=== PATIENT | female | born 1975 | race Caucasian/White ===

== ENCOUNTER 2016-12-09 11:39 | Emergency (ER) | payer SELFPAY ==
[~2016-12-09] VITALS: Ht 165.1 cm; Wt 96.5 kg
[2016-12-09 12:11] VITALS: Ht 165.1 cm; Wt 96.5 kg
[2016-12-10] MEDS ORDERED: FER325 PO (08:40)
[2016-12-10] MEDS ORDERED: PROVERA PO (08:40)
== END 2016-12-09 13:30 | disposition left against medical advice (07) ==
LOC: FTE 11:39
DX: Z53.21 Procedure and treatment not carried out due to patient leaving prior to being seen by health care provider (principal)

== ENCOUNTER 2016-12-10 05:27 | Inpatient (IN) | payer OTHER ==
[2016-12-10] VITALS (21 sets, daily range): BP systolic 115–147; BP diastolic 52–70; PULSE 60–84; RESP 15–21; Ht 165.1 cm; Wt 95.0 kg
[~2016-12-10] VITALS: Ht 165.1 cm; Wt 95.0 kg
[2016-12-10] MEDS ORDERED: GLYCOPYRROLATE 0.4 MG INJ ONE (07:00)
[2016-12-10] MEDS ORDERED: NEOSTIGMINE 3 MG/3 ML SYRINGE ONE (07:00)
[2016-12-10 07:16] LABS: ADD SCAN DIFF NO
--- NOTE | 2016-12-10 07:22 | PREOPHP ---
DATE OF ADMISSION: 12/10/2016 HISTORY OF PRESENT ILLNESS: This is a 41-year-old lady, 6, para 1 with 1 ectopic . Her last normal menstrual period was many months ago as she was admitted for GONZALO, possible BSO. T his patient has a history of on and off vaginal bleeding for many months and getting worse up to the time of admission. She was admitted to the [facility] on 12/01/2016 because o f vaginal bleeding as well as the hemoglobin was 6. She received 4 units of packed cells plus 2 uni ts of fresh frozen plasma. She had a D and C done and she was noted to have a submucous myoma about 6 x 6 cm and the patient continued to bleed, so she was admitted for the above procedure. The proc edures were explained to her and she understood everything totally. The risks, benefits and alterna tives were discussed with her as well. PAST PERSONAL HISTORY: No history of diabetes, TB, asthma. ALLERGIES: NO ALLERGIES. SOCIAL HISTORY: Patient does not smoke. She does not drink. MEDICATIONS: She does not take any drugs except her iron. GYNECOLOGIC HISTORY: She had menarche at the age of 14, every 28 days interval, 3 to 4 days duratio n, and moderate in amount. FAMILY HISTORY: Mother has high blood pressure and father has diabetes. She is 6, para 5 w ith 1 and 4 normal deliveries. REVIEW OF SYSTEMS: CARDIOVASCULAR: No chest pains. RESPIRATORY: No cough. GASTROINTESTINAL: No diarrhea, no vomiting. GENITOURINARY: No dysuria. PHYSICAL EXAMINATION: GENERAL: Reveals a conscious coherent lady and in no acute distress. VITAL SIGNS: Her blood pressure 120/80, pulse rate 80 per minute, respirations 16 per minute. BREASTS: Within normal limits. HEART: Within normal limits. LUNGS: Within normal limits. ABDOMEN: Soft. No organomegaly. PELVIC: Revealed the cervix to be open with about 8 cm submucous fibroid uterus at 12 week size, an d adnexa were negative for masses. RECTAL: Confirmed the pelvic findings. EXTREMITIES: No pedal edema. ADMITTING DIAGNOSES: Menometrorrhagia submucous fibroid, chronic pelvic pain and anemia. PLAN: The patient was planned to have the above procedure. Dictated By: NAVEED TOLEDO/DARSHAN Conf#: [id number] [facility]#: [id number]
[2016-12-10 07:30] LABS: BASOPHILS % 0.2 % (0.0-2.0); EOSINOPHILS # 0.1 10^3/ul (0.0-0.5); EOSINOPHILS % 1.5 % (0.0-7.0); HEMATOCRIT 28.5 % (37.0-47.0); HEMOGLOBIN 8.7 g/dl (12.0-16.0); LYMPHOCYTES % 24.2 % (15.0-51.0); MEAN CORPUSCULAR HEMOGLOBIN 30.4 pg (29.0-33.0); MEAN CORPUSCULAR HGB CONC 30.5 g/dl (32.0-37.0); MEAN CORPUSCULAR VOLUME 99.7 fl (82.0-101.0); MEAN PLATELET VOLUME 10.5 fl (7.4-10.4); MONOCYTE # 0.5 10^3/ul (0.3-0.9); MONOCYTES % 6.5 % (0.0-11.0); NEUTROPHIL # 5.6 10^3/ul (1.6-7.5); NEUTROPHILS % 67.4 % (39.0-77.0); PLATELET COUNT 393 10^3/UL (140-415); RED BLOOD COUNT 2.86 10^6/ul (4.20-5.40); RED CELL DISTRIBUTION WIDTH 17.4 % (11.5-14.5); WHITE BLOOD COUNT 8.3 10^3/ul (4.8-10.8)
[2016-12-10 07:39] LABS: ALBUMIN 3.7 g/dl (3.3-4.9)
[2016-12-10 07:41] LABS: BILIRUBIN,INDIRECT 0.1 mg/dl (0-1.1); BILIRUBIN,TOTAL 0.1 mg/dl (0.2-1.3)
[2016-12-10 07:42] LABS: ALBUMIN/GLOBULIN RATIO 1.19; TOTAL PROTEIN 6.8 g/dl (6.1-8.1)
[2016-12-10 07:49] LABS: POTASSIUM 4.4 mmol/L (3.5-5.1)
[2016-12-10 07:50] LABS: CALCIUM 8.9 mg/dl (8.4-10.2); CREATININE 0.66 mg/dl (0.44-1.00)
[2016-12-10 08:08] LABS: INR 0.94; PROTIME 12.6 Sec (12.2-14.2)
[2016-12-10 08:09] LABS: PARTIAL THROMBOPLASTIN TIME 28.1 Sec (25.0-35.0)
[2016-12-10] MEDS ORDERED: FER325 PO (08:40)
[2016-12-10] MEDS ORDERED: PROVERA PO (08:40)
[2016-12-10] MEDS ORDERED: PROPOFOL 20 ML ONE (10:47)
[2016-12-10] MEDS ORDERED: ROCURONIUM 50 MG INJ ONE ×2 (10:47→11:50)
[2016-12-10] MEDS ORDERED: MIDAZOLAM 1 MG/ML 2 ML INJ ONE (10:47)
[2016-12-10] MEDS ORDERED: METOCLOPRAMIDE 10 MG INJ ONE (10:48)
[2016-12-10] MEDS ORDERED: CEFAZOLIN 1 GM INJ ONE (10:59)
[2016-12-10] MEDS ORDERED: KETOROLAC 30 MG INJ ONE (11:00)
[2016-12-10] MEDS ORDERED: ROPIVACAINE 0.2% 20 ML VIAL ONE (11:11)
[2016-12-10] MEDS ORDERED: OXYCODONE/ACETAMINOPHEN (5/325) TAB PO PRN ×2 (11:30)
[2016-12-10] MEDS ORDERED: HYDROmorphONE (0.2 MG/ML) 10ML SYG IV PRN ×2 (11:30)
[2016-12-10] MEDS ORDERED: DIPHENHYDRAMINE 50 MG INJ IV PRN ×2 (11:30)
[2016-12-10] MEDS ORDERED: NALOXONE (0.4 MG/ML) INJ IV PRN (11:30)
[2016-12-10] MEDS ORDERED: HYDROCODONE/APAP (5/325) TAB PO PRN (11:30)
[2016-12-10] MEDS ORDERED: ONDANSETRON 4 MG INJ IV PRN (11:30)
[2016-12-10] MEDS ORDERED: METOCLOPRAMIDE 10 MG INJ IV PRN (11:30)
[2016-12-10] MEDS ORDERED: HYDROmorphONE 1 MG/ML SYG IV PRN ×3 (11:30)
[2016-12-10] MEDS ORDERED: KETOROLAC 30 MG INJ IV PRN (11:30)
[2016-12-10] MEDS ORDERED: FENTAnyl 2MCG/ML-ROPIV 0.2% 100 ML BAG EPI SCH (11:30)
[2016-12-10] MEDS ORDERED: MEPERIDINE 25 MG INJ IV PRN (11:30)
[2016-12-10] MEDS ORDERED: FENTAnyl 50 MCG/ML VIAL ONE (12:46)
[2016-12-10] MEDS: HYDROmorphONE (0.2 MG/ML) 10ML SYG IV PRN ×3 (13:25→13:42)
[2016-12-10] MEDS ORDERED: ONDANSETRON 4 MG TAB PO PRN (14:00)
[2016-12-10] MEDS ORDERED: BISACODYL 10 MG SUPP PR PRN (14:00)
[2016-12-10] MEDS: HYDROmorphONE 1 MG/ML SYG IV PRN ×2 (18:35→20:56)
[2016-12-10] MEDS: FENTAnyl 2MCG/ML-ROPIV 0.2% 100 ML BAG EPI SCH (21:54)
[2016-12-11 00:28] VITALS: BP 123/64; RESP 20
[2016-12-11] MEDS: LACTATED RINGER'S 1,000 ML IV SCH ×2 (00:28→11:30)
[2016-12-11] MEDS: HYDROmorphONE 1 MG/ML SYG IV PRN ×4 (00:30→12:18)
[2016-12-11 05:16] LABS: ADD SCAN DIFF NO
[2016-12-11 05:27] LABS: BASOPHILS % 0.3 % (0.0-2.0); EOSINOPHILS % 0.1 % (0.0-7.0); HEMATOCRIT 25.6 % (37.0-47.0); HEMOGLOBIN 8.2 g/dl (12.0-16.0); LYMPHOCYTES # 1.4 10^3/ul (0.8-2.9); LYMPHOCYTES % 14.2 % (15.0-51.0); MEAN CORPUSCULAR HEMOGLOBIN 30.8 pg (29.0-33.0); MEAN CORPUSCULAR VOLUME 96.2 fl (82.0-101.0); MEAN PLATELET VOLUME 10.9 fl (7.4-10.4); MONOCYTE # 0.9 10^3/ul (0.3-0.9); MONOCYTES % 8.6 % (0.0-11.0); NEUTROPHIL # 7.8 10^3/ul (1.6-7.5); NEUTROPHILS % 76.5 % (39.0-77.0); PLATELET COUNT 318 10^3/UL (140-415); RED BLOOD COUNT 2.66 10^6/ul (4.20-5.40); RED CELL DISTRIBUTION WIDTH 17.3 % (11.5-14.5); WHITE BLOOD COUNT 10.1 10^3/ul (4.8-10.8)
[2016-12-11 05:36] LABS: ALBUMIN 2.8 g/dl (3.3-4.9)
[2016-12-11 05:37] LABS: POTASSIUM 4.2 mmol/L (3.5-5.1)
[2016-12-11 05:39] LABS: ALBUMIN/GLOBULIN RATIO 1.12; BILIRUBIN,INDIRECT 0.3 mg/dl (0-1.1); BILIRUBIN,TOTAL 0.3 mg/dl (0.2-1.3); CALCIUM 8.2 mg/dl (8.4-10.2); CREATININE 0.65 mg/dl (0.44-1.00); TOTAL PROTEIN 5.3 g/dl (6.1-8.1)
--- NOTE | 2016-12-11 06:28 | OPR ---
DATE OF OPERATION: 12/10/2016 PREOPERATIVE DIAGNOSES: 1. Chronic pelvic pain. 2. Iron deficiency anemia. 3. Fibroid uterus. 4. Submucosal fibroid. 5. Rule out adenomyosis. POSTOPERATIVE DIAGNOSES: 1. Chronic pelvic pain. 2. Iron deficiency anemia. 3. Fibroid uterus. 4. Submucosal fibroid. 5. Rule out adenomyosis. 6. Severe pelvic and abdominal adhesions and perineal relaxation. SURGEON: Naveed Man MD FIBER DESIGNER: Dr. Contreras ANESTHESIA: General. OPERATION PERFORMED: Exploratory laparotomy, total abdominal hysterectomy, lysis of severe pelvic a nd abdominal adhesions, and vaginal vault suspension. OPERATIVE TECHNIQUE: Under general anesthesia, the patient was prepped and draped in the usual [facility] ion for abdominal surgery. After checking for the effect of the anesthesia, Pfannenstiel incision, 14 cm skin incision, was performed. The incision was carried from the skin up to the fascia. Upon opening the skin up to the fascia, small blood vessels were noted to be oozing, and these were all c auterized. Fascia was opened transversely followed by splitting the muscles vertically and the keven toneum vertically. Upon opening the abdominal cavity, the uterus was noted to be about 16 weeks siz e and soft. The uterus felt soft. Then, the upper abdominal organs were palpated. They were withi n normal limits. The omentum was noted to be attached all over the anterior parietal peritoneum. A ll these adhesions had to be lysed by sharp and blunt dissection. There were some omental adhesions noted on the lower uterine segment, and these adhesions were lysed by sharp and blunt dissection. Then, the self-retaining retractor was put in place. The bladder blade was put in place. The bowel s were packed away from the operative field with the aid of 6 wet lap sponges. Then, the upper blad e was put in place. Then, two 8 inch Kochers were placed at each paratubal and paraovarian ligament for traction. Then, the left round ligament was grasped with 2 Kochers and cut. A stick tie with 0 Vicryl was used and tagged. The left broad ligament was skeletonized for the development of the b ladder flap. The left utero-ovarian and left uterotubal ligaments were grasped with 2 Lamine clamps and pulled back with a straight Anibal and cut. At first, a free tie with 0 Vicryl was used follow ed by Lamine suture. Bleeders were checked, and there was no bleeding noted. Same thing was done o n the right side. The right round ligament was grasped with 2 Kochers and cut. Stick tie with 0 Vi cryl was used and tagged. Then, the right utero-ovarian and right uterotubal ligaments were grasped with 2 Lamine clamps and pulled back with a straight Anibal and cut. At first, a free tie with 0 V icryl was used followed by Lamine suture. Bleeders were checked, and there was no bleeding noted. Once again, the broad ligament on both sides was skeletonized for the development of the bladder fla p. Then, the left uterine vessels were grasped with 2 Lamine clamps and pulled back with a straight Anibal and cut. A stick tie with 0 Vicryl was used on its clamp. Bleeders were checked, and there was no bleeding noted. Same thing was done on the right side. Bleeders were checked, and there wa s no bleeding noted. Once again, the bladder was from the cervix by sharp and blunt disse ction, then 2 more Kochers were placed at the paracervical tissue on the left and right side, and on each Anibal the tissue was cut and a stick tie with 0 Vicryl was used. Bleeders were checked, and there was no bleeding noted. Then, the body of the uterus was excised. The remaining cervix was gr asped with 2 single tooth tenaculum. Once again, the bladder was from the cervix by sharp and blunt dissection. About 5 more Kochers were placed at the paracervical tissue on the left and right side, and on its clamp the tissue was cut and a stick tie with 0 Vicryl was used. Bleeders we re checked, and there was no bleeding noted. Another piece of cervix was excised. The remaining ce rvix was grasped with 2 single tooth tenaculum. Once again, the bladder was from the cerv ix by sharp and blunt dissection, and then another 5 Kochers were placed at the paracervical tissue on the left and right side, and on each clamp the tissue was cut and a stick tie with 0 Vicryl was u sed. Then, another piece of cervix was excised. Then the cervix again was grasped with 2 single to oth tenaculum. About 3 more Kochers were placed at the paracervical tissue, and on clamp the tissue was cut and a stick tie with 0 Vicryl was used. Bleeders were checked, and there was no bleeding n oted. Then, the cervical vaginal angle was grasped with 2 Lamine clamps, and the cervix was excised . A Lamine suture was used, put on its clamp. Another continuous suture with 0 Vicryl was used to reinforce the first sutures put in the vagina. Then, the right angle of the vagina was sutured with the right paracervical tissue, and in turn, after checking for any bleeders in which there were non e, it was tied with the right round ligament for vaginal vault suspension. The same thing was done on the left side. Irrigation was done to check for any bleeders, and there was some oozing noted at the vaginal cuff on the left side. Two [id number] sutures were put in, and the bleeding was s topped. Once again, bleeders were checked, and there was no bleeding noted from all the stumps. Th en, the raw area was covered with fibril. Then, the fibril was put in after irrigation with about 2 00 mL of normal saline. After correct sponge count, needle count, and instrument count as confirmed by the pre sales technical engineer and engineering clerk, the abdomen was closed in the usual fashion using 0 Vicryl for th e peritoneum, 0 Vicryl for the muscles, for the fascia, 0 Vicryl continuous stitch was used, followe d by few [id number] sutures. For the subcutaneous tissue, it was closed with 3-0 Vicryl, and t he skin was closed with 3-0 Vicryl. Subcuticular suture was used. The patient tolerated the proced ure well. Estimated blood loss about 300 mL. Vital signs were stable during and after the procedur e. The submucosal fibroid that was noted during the D and C in another hospital was about 8 x 8 cm, and this was extracted from the vagina after the hysterectomy as the pedicle of the fibroid was cut when the body of the uterus was excised. Dictated By: NAVEED TOLEDO/DARSHAN Conf#: [id number] DID#: [id number] CC: NAVEED MAN MD;*[facility]*
[2016-12-11] MEDS: FENTAnyl 2MCG/ML-ROPIV 0.2% 100 ML BAG EPI SCH (07:24)
[2016-12-11 08:23] VITALS: BP 130/64; RESP 18
[2016-12-11 09:44] LABS: ADD UMIC YES; URINE BILIRUBIN (Dip) NEGATIVE (NEGATIVE); URINE BLOOD (Dip) 2+ (NEGATIVE); URINE COLOR YELLOW (YELLOW); URINE GLUCOSE (Dip) NEGATIVE (NEGATIVE); URINE KETONES (Dip) NEGATIVE (NEGATIVE); URINE LEUKOCYTE ESTERASE (Dip) NEGATIVE (NEGATIVE); URINE NITRITE (Dip) NEGATIVE (NEGATIVE); URINE TOTAL PROTEIN (Dip) 1+ (NEGATIVE); URINE UROBILINOGEN (Dip) 0.2 E.U./dL (0.1-1.0)
[2016-12-11 10:08] LABS: SQUAMOUS EPITHELIAL CELL,UR FEW
[2016-12-11 10:09] LABS: BACTERIA,URINE MODERATE
[2016-12-11] MEDS: MAGNESIUM HYDROXIDE 30ML CUP PO SCH ×2 (11:30→20:09)
--- NOTE | 2016-12-11 11:45 | PN ---
Date/Time of Note Date/Time of Note DATE: 12/11/16 TIME: 11:44 Assessment/Plan VTE Prophylaxis VTE Prophylaxis Intervention: ambulation, anti-embolic stocking Lines/Catheters IV Catheter Type (from Nrsg): Peripheral IV Urinary Cath still in place: Yes Subjective 24 Hr Interval Summary Free Text/Dictation anesthesia Note: A 41 year female S/P abdminal hysterectomy pod #1 under GA and Epidural. pt is cmfortable, no n/v. headache, itching, . d/c epidural. catheter is out. intact tip. Exam/Review of Systems Vital Signs Vitals Vital Signs Date Time Temp Pulse Resp B/P Pulse Ox O2 Delivery O2 Flow Rate FiO2 12/11/16 08:23 98.2 90 18 130/64 95 12/10/16 19:15 Nasal Cannula 2.0 Intake and Output 12/10/16 12/10/16 12/11/16 15:00 23:00 07:00 Intake Total 2250 ml 700 ml 450 ml Output Total 510 ml 600 ml 150 ml Balance 1740 ml 100 ml 300 ml Results Result Diagram: 12/11/16 0415 12/11/16 0415 Results 24 hrs Laboratory Tests Test 12/11/16 00:25 12/11/16 04:15 Urine Color YELLOW Urine Clarity CLEAR Urine pH 5.5 Urine Specific [place] >=1.030 H Urine Ketones NEGATIVE Urine Nitrite NEGATIVE Urine Bilirubin NEGATIVE Urine Urobilinogen 0.2 E.U./dL Urine Leukocyte Esterase NEGATIVE Urine Microscopic RBC 5-10 Urine Microscopic WBC NONE SEEN Urine Squamous Epithelial Cells FEW Urine Amorphous Urates MANY Urine Bacteria MODERATE Urine Hemoglobin 2+ H Urine Glucose NEGATIVE Urine Total Protein 1+ H White Blood Count 10.1 # Red Blood Count 2.66 L Hemoglobin 8.2 L Hematocrit 25.6 L Mean Corpuscular Volume 96.2 Mean Corpuscular Hemoglobin 30.8 Mean Corpuscular Hemoglobin Concent 32.0 Red Cell Distribution Width 17.3 H Platelet Count 318 Mean Platelet Volume 10.9 H Neutrophils % 76.5 Lymphocytes % 14.2 L Monocytes % 8.6 Eosinophils % 0.1 Basophils % 0.3 Nucleated Red Blood Cells % 0.0 Neutrophils # 7.8 H Lymphocytes # 1.4 Monocytes # 0.9 Eosinophils # 0.0 Basophils # 0.0 Nucleated Red Blood Cells # 0.0 Sodium Level 137 Potassium Level 4.2 Chloride Level 105 Carbon Dioxide Level 27 Anion Gap 9 Blood Urea Nitrogen 13 Creatinine 0.65 Glucose Level 117 Calcium Level 8.2 L Total Bilirubin 0.3 Direct Bilirubin 0.00 Indirect Bilirubin 0.3 Aspartate Amino Transf (AST/SGOT) 39 Alanine Aminotransferase (ALT/SGPT) 26 Alkaline Phosphatase 67 Total Protein 5.3 #L Albumin 2.8 L Globulin 2.50 Albumin/Globulin Ratio 1.12 Medications Medications Current Medications Hydromorphone HCl (Dilaudid) 0.2 mg Q2H PRN IV PAIN LEVEL 1-5; Start 12/10/16 at 11:30 Hydromorphone HCl (Dilaudid) 0.4 mg Q2H PRN IV PAIN LEVEL 6-10; Start 12/10/16 at 11:30 Acetaminophen/ Hydrocodone Bitart ([place] (5/325)) 1 tab Q4H PRN PO PAIN LEVEL 4 -6; Start 12/10/16 at 11:30 Diphenhydramine HCl (Benadryl) 25 mg Q4H PRN IV PRURITUS; Start 12/10/16 at 11: 30 Naloxone HCl (Narcan) 0.2 mg Q2M PRN IV FOR RESP RATE 8 OR LESS; Start at 11:30 Bisacodyl (Dulcolax Supp) 10 mg BID PRN LA CONSTIPATION; Start 12/10/16 at 14: 00 Ondansetron HCl (Zofran Tab) 4 mg Q6H PRN PO NAUSEA AND/OR VOMITING; Start at 14:00 Magnesium Hydroxide (Milk Of Mag) 30 ml BID PO Last administered on 12/11/16t 11:30; Admin Dose 30 ML; Start 12/11/16 at 09:00 Oxycodone/ Acetaminophen (Percocet (5/ 325)) 1 tab Q3 PRN PO PAIN LEVEL 1-5; Start 12/11/16 at 14:00 Oxycodone/ Acetaminophen (Percocet (5/ 325)) 2 tab Q3 PRN PO PAIN LEVEL 6-10; Start 12/11/16 at 14:00 Ketorolac Tromethamine (Toradol) 30 mg Q6H PRN IV PAIN LEVEL 6-10; Start at 18:20; Stop 12/13/16 at 18:19 Hydromorphone HCl 1 mg 1 mg Q2H PRN IV BREAKTHROUGH PAIN Last administered on 08:19; Admin Dose 1 MG; Start 12/10/16 at 18:00 Lactated Ringer's (Lr) 1,000 ml @ 100 mls/hr Q10H IV Last administered on 12/11 11:30; Admin Dose 100 MLS/HR; Start 12/11/16 at 00:30 FRANCHESKA TARIQ MD Dec 11, 2016 11:45
[2016-12-11] MEDS ORDERED: OXYCODONE/ACETAMINOPHEN (5/325) TAB PO PRN ×2 (14:00)
[2016-12-11] MEDS: OXYCODONE/ACETAMINOPHEN (5/325) TAB PO PRN ×2 (15:39→18:25)
[2016-12-11] MEDS: KETOROLAC 30 MG INJ IV PRN (20:09)
[2016-12-11 21:40] VITALS: BP 138/67; RESP 20
[2016-12-12] MEDS: OXYCODONE/ACETAMINOPHEN (5/325) TAB PO PRN ×5 (00:34→16:40)
[2016-12-12] MEDS: LACTATED RINGER'S 1,000 ML IV SCH ×3 (01:18→15:31)
[2016-12-12] MEDS: KETOROLAC 30 MG INJ IV PRN (02:59)
[2016-12-12 04:49] LABS: ADD SCAN DIFF NO
[2016-12-12 05:01] LABS: BASOPHILS % 0.2 % (0.0-2.0); EOSINOPHILS # 0.1 10^3/ul (0.0-0.5); EOSINOPHILS % 0.9 % (0.0-7.0); HEMATOCRIT 27.2 % (37.0-47.0); HEMOGLOBIN 8.7 g/dl (12.0-16.0); LYMPHOCYTES # 1.5 10^3/ul (0.8-2.9); LYMPHOCYTES % 14.3 % (15.0-51.0); MEAN CORPUSCULAR HEMOGLOBIN 30.3 pg (29.0-33.0); MEAN CORPUSCULAR VOLUME 94.8 fl (82.0-101.0); MEAN PLATELET VOLUME 10.7 fl (7.4-10.4); MONOCYTE # 0.6 10^3/ul (0.3-0.9); NEUTROPHILS % 78.3 % (39.0-77.0); PLATELET COUNT 268 10^3/UL (140-415); RED BLOOD COUNT 2.87 10^6/ul (4.20-5.40); RED CELL DISTRIBUTION WIDTH 16.6 % (11.5-14.5); WHITE BLOOD COUNT 10.3 10^3/ul (4.8-10.8)
[2016-12-12 05:23] LABS: POTASSIUM 3.6 mmol/L (3.5-5.1)
[2016-12-12 05:25] LABS: CREATININE 0.54 mg/dl (0.44-1.00)
[2016-12-12 05:26] LABS: CALCIUM 8.1 mg/dl (8.4-10.2)
[2016-12-12 07:50] VITALS: BP 122/55; RESP 18
[2016-12-12] MEDS: MAGNESIUM HYDROXIDE 30ML CUP PO SCH (09:55)
== END 2016-12-12 19:05 | disposition home or self-care (01) | DRG 743 ==
LOC: REC 05:27 → MS1 15:20
PROVIDERS: ADMIT Obstetrics & Gynecology; ATTEND Obstetrics & Gynecology
PROC: 0UTC0ZZ Resection of Cervix, Open Approach (ICD-10-PCS; 2016-12-10)
PROC: 0USG0ZZ Reposition Vagina, Open Approach (ICD-10-PCS; 2016-12-10)
PROC: 0DNS0ZZ (ICD-10-PCS; 2016-12-10)
PROC: 0UT90ZZ Resection of Uterus, Open Approach (ICD-10-PCS; principal; 2016-12-10 10:00)
DX: D25.0 Submucous leiomyoma of uterus (principal); E66.9 Obesity, unspecified; D50.9 Iron deficiency anemia, unspecified; N73.6 Female pelvic peritoneal adhesions (postinfective); Z68.34 Body mass index [BMI] 34.0-34.9, adult; R10.2 Pelvic and perineal pain; G89.29 Other chronic pain
CPT/HCPCS: 36430; 80048; 80053; 81001; 81003; 85025; 85610; 85730; 86850; 86870; 86900; 86901; 86902; 86920; 87086; 88305; J0690; J1170; J1200; J1885; J2175; J2250; J2405; J2710; J2765; J2795; J3010; J7120; P9016

== ENCOUNTER 2016-12-14 16:09 | Inpatient (IN) | payer OTHER ==
[~2016-12-14] VITALS: Ht 167.6 cm; Wt 102.3 kg
[~2016-12-14 16:09] MED LIST: FER325 PO; PROVERA PO
[2016-12-14] MEDS ORDERED: PIPER-TAZO 3.375 GM IV (PMX) 100 ML IVPB STA (16:19)
[2016-12-14] MEDS ORDERED: ACETAMINOPHEN 325 MG TAB PO STA (16:19)
[2016-12-14] MEDS ORDERED: SODIUM CHLORIDE 0.9% 1L BAG IV* STA (16:19)
[2016-12-14] MEDS ORDERED: VANCOMYCIN 1 GM (PMX) 250 ML IVPB STA (16:19)
--- NOTE | 2016-12-14 16:37 | ERA ---
ER Documentation Chief Complaint Date/Time DATE: 12/14/16 TIME: 16:32 Chief Complaint hysterectomy last week; ap & fever starting today HPI This is a 41-year-old female that presents to the emergency department postop day #5 after under going a total abdominal hysterectomy and vaginal vault suspension performed by Dr. Man on December 11, 2016. The patient indicates that roughly 2 hours prior to arrival she developed a sudden onset of diffuse abdominal pain, myalgias and a tactile fever shaking and chills. The patient did indicate that yesterday evening roughly 24 hours prior to arrival she developed tenderness in the right lower quadrant that lasted for roughly 1 hour and then spontaneously resolved. The patient has been taking hydromorphone for analgesic control and the last dose was roughly 5 hours prior to arrival. She states the pain is 10 out of 10 in intensity. She has no shortness of breath at rest or exertion. She denies any hemoptysis hematemesis or melanotic stools and denies any vaginal bleeding. ROS All systems reviewed and are negative except as per history of present illness. Medications Home Meds Reported Medications Hydrocodone/Acetaminophen ([place] 10-325 Tablet) 1 Each Tablet, 1 EACH PO Q3HWA Y for PAIN, TAB 12/14/16 Ferrous Sulfate* (Ferrous Sulfate*) 325 Mg Tabec, 325 MG PO TID, TAB 12/10/16 Discontinued Reported Medications [Provera] No Conflict Check, PO TID 12/10/16 Allergies Allergies: Coded Allergies: No Known Allergy (Unverified , 12/14/16) PMhx/Soc History of Surgery: Yes (C SECTION X 1 ,D&C) Anesthesia Reaction: No Hx Neurological Disorder: No Hx Respiratory Disorders: No Hx Cardiac Disorders: No Hx Psychiatric Problems: No Hx Miscellaneous Medical Probl: Yes (ANEMIA) Hx Alcohol Use: No Hx Substance Use: No Hx Tobacco Use: No Physical Exam Vitals Vital Signs Date Time Temp Pulse Resp B/P Pulse Ox O2 Delivery O2 Flow Rate FiO2 12/14/16 19:13 98.8 105 24 113/53 100 Nasal Cannula 2.0 12/14/16 17:52 103.0 118 30 115/77 100 Nasal Cannula 2.0 12/14/16 16:15 103.8 129 22 112/55 98 Physical Exam Constitutional:Well-developed. Well-nourished. Patient diaphoretic not respiratory distress HEENT:Normocephalic. Atraumatic.Pupils were equal round reactive to light. Moist mucous membranes.No tonsillar exudates. Conjunctival pallor Neck: No nuchal rigidity. No lymphadenopathy. No posterior cervical spine tenderness or step-offs. Respiratory: Not using accessory muscles of respiration.Lungs were clear to auscultation bilaterally. No rhonchi. No rales. No wheezing. Cardiovascular: Regular rate regular rhythm.No murmurs. No rubs were appreciated.S1, S2 normal. Distal pulses are palpable 2+ bilaterally. GI: Abdomen was soft. Diffuse abdominal tenderness. Pfannenstiel 14 cm incision with no pulsatile abdominal masses or bruits. No rebound. Voluntary guarding. Bowel sounds were present and normal. Muscle skeletal: Full range of motion of both the upper and lower extremities bilaterally.Normal muscle tone.No assymetrical calf tenderness or swelling. Skin: Diffuse pallor with no petechia, no purpura. No lesions on the palms or the soles of the feet. No maculopapular rash. NEURO: Patient was alert, awake, orientated x3.No facial droop. Gait observed and normal with no ataxia.Speech had regular rate and rhythm. No focal neurological deficits. Result Diagram: 12/14/16 1655 12/14/16 1655 Results 24 hrs Laboratory Tests Test 12/14/16 16:55 12/14/16 19:00 White Blood Count 4.010^3/ul Red Blood Count 3.2510^6/ul Hemoglobin 9.9g/dl Hematocrit 30.5% Mean Corpuscular Volume 93.8fl Mean Corpuscular Hemoglobin 30.5pg Mean Corpuscular Hemoglobin Concent 32.5g/dl Red Cell Distribution Width 15.5% Platelet Count 18987^3/UL Mean Platelet Volume 10.7fl Neutrophils % 71.0% Band Neutrophils % 12.0% Lymphocytes % 11.0% Monocytes % 6.0% Eosinophils % % Neutrophils # 2.810^3/ul Lymphocytes # 0.410^3/ul Monocytes # 0.210^3/ul Eosinophils # 10^3/ul Sodium Level 132mmol/L Potassium Level 3.6mmol/L Chloride Level 93mmol/L Carbon Dioxide Level 26mmol/L Anion Gap 17 Blood Urea Nitrogen 8mg/dl Creatinine 0.70mg/dl Glucose Level 160mg/dl Lactic Acid Level 2.3mmol/L 2.0mmol/L Calcium Level 8.3mg/dl Total Bilirubin 0.3mg/dl Direct Bilirubin 0.00mg/dl Indirect Bilirubin 0.3mg/dl Aspartate Amino Transf (AST/SGOT) 36IU/L Alanine Aminotransferase (ALT/SGPT) 40IU/L Alkaline Phosphatase 158IU/L Troponin I < 0.012ng/ml Total Protein 6.2g/dl Albumin 2.9g/dl Globulin 3.30g/dl Albumin/Globulin Ratio 0.87 Amylase Level 50U/L Lipase 31U/L Current Medications Medications (Trade) Dose Ordered Sig/Roni Route PRN Reason Start Time Stop Time Status Last Admin Dose Admin Sodium Chloride (NS) 3,070 ml BOLUS OVER 2 HOURS STAT IV* 12/14/16 16:19 12/14/16 16:23 DC 12/14/16 16:59 Acetaminophen 650 mg 650 mg ONCE STAT PO 12/14/16 16:19 12/14/16 16:23 DC 12/14/16 16:58 Vancomycin HCl 250 ml @ 125 mls/hr ONCE STAT IVPB 12/14/16 16:19 12/14/16 18:18 DC 12/14/16 17:30 Piperacillin Sod/ Tazobactam Sod (Zosyn 3.375gm/ 100 ml (Pmx)) 100 ml @ 200 mls/hr ONCE STAT IVPB 12/14/16 16:19 12/14/16 16:48 DC 12/14/16 16:59 Morphine Sulfate (morphine) 4 mg ONCE STAT IV 12/14/16 17:03 12/14/16 17:06 DC 12/14/16 17:40 Ondansetron HCl (Zofran Inj) 4 mg ONCE STAT IV 12/14/16 17:03 12/14/16 17:06 DC 12/14/16 17:40 IV Flush 10 ml 10 ml STK-MED ONCE .ROUTE 12/14/16 17:12 12/14/16 17:13 DC 12/14/16 17:19 Sodium Chloride (NS) 100 ml @ ud STK-MED ONCE .ROUTE 12/14/16 17:12 12/14/16 17:13 DC 12/14/16 17:19 Iohexol (Omnipaque 300mg/ ml) 30 ml STK-MED ONCE .ROUTE 12/14/16 17:12 12/14/16 17:13 DC 12/14/16 17:20 Hydromorphone HCl (Dilaudid) 1 mg ONCE STAT IV 12/14/16 18:13 12/14/16 18:16 DC 12/14/16 19:00 Ondansetron HCl (Zofran Inj) 4 mg ONCE STAT IV 12/14/16 18:13 12/14/16 18:16 DC 12/14/16 19:00 Acetaminophen (Tylenol Tab) 1,000 mg ONCE STAT PO 12/14/16 18:57 12/14/16 18:58 DC 12/14/16 19:56 Ondansetron HCl (Zofran Inj) 4 mg ER BRIDGE PRN IV NAUSEA AND/OR VOMITING 12/14/16 19:30 12/15/16 19:29 Acetaminophen (Tylenol Tab) 650 mg ER BRIDGE PRN PO MILD PAIN/FEVER 12/14/16 19:30 12/15/16 19:29 Hydromorphone HCl (Dilaudid) 1 mg ONCE STAT IV 12/14/16 19:41 12/14/16 19:42 DC Ondansetron HCl (Zofran Inj) 4 mg ONCE STAT IV 12/14/16 19:41 12/14/16 19:42 DC Procedures/MDM This patient presented to the emergency department with postoperative abdominal pain and was seen and evaluated by myself. My differential diagnosis included but was not limited to abdominal aortic aneurysm, appendicitis, pancreatitis, perforated peptic ulcer, perforated viscus, Boerhaaves syndrome or visceral pain such as diverticulitis, DKA, esophagitis, hepatitis or bowel obstruction. The patient was placed on a monitoring manager, continuous pulse oximetry, and IV access was established by nursing staff. The patient was septic and had 2 large -bore is placed by nursing staff and I immediately ordered 2 units of packed red blood cells due to the patient's physical exam findings of tachycardia conjunctival pallor with concern for severe anemia. The patient was given intravenous morphine and Zofran for analgesic control. Blood cultures and urine cultures were obtained. 12 Lead EKG tracing ordered and reviewed by myself showed: Sinus tachycardia of 120 bpm and no arrhythmia. NE interval normal. QRS duration normal. No ST segment elevation No ST segment depression. No changes consistent with acute ischemia. Given the severity of the patient's symptoms I immediately had the patient taken to the CT scan before labs had returned as I was concerned for a surgical abdomen. I have placed a call to the patient's BULLET LUBRICATING MACHINE OPERATOR Dr. Paz. The patient was immediately started on broad-spectrum antibiotics which included vancomycin and Zosyn and morphine for analgesic control. I spoke with Dr. Otero who I consulted to inform him that his patient was in the emergency department at 1713. I did indicate I would phone him back once we have the results of the CT scan. CT scan with IV contrast or and reviewed by myself indicated that the patient had large pelvic abscess measuring 10.5 cm x 6.2 x 6 cm and a small volume of ascites and trace pneumoperitoneum that likely could be a result of a postsurgical abscess. However the appendix could not be visualized at this time I could not rule out a ruptured appendicitis given her physical exam findings. I placed a call to inform the surgeon financial institution vice president , Dr. Mane, at this time. He requested a CT scan to be obtained with oral and rectal contrast in order to properly visualize the appendix. The patient was still in a significant amount of pain with voluntary guarding and therefore the patient received IV Dilaudid. As stated above I was concerned with a postoperative abscess given that there were 2 fluid collections seen with on the CT scan and likely would require drainage and as a result I placed the patient on broad-spectrum antibiotics. Patient's infectious symptoms have not stabilized and the patient is at risk of rapid decompensation. The patient will be admitted for careful hydration, antibiotic therapy, and infectious source control. Severe Sepsis Assessment: Infectious Source: Postoperative abscess End organ damage indicated by: Lactate > 2.0 mmol/L Severe Sepsis Managment: Blood Cultures X 2 before broad spectrum antibiotics initiated within 3 hours of recognition. 30 ml/kg NS bolus Completed Initial Lactate: 2.3 Repeat Lactate pending I considered further perfusion assessment with CVP measurement, SCVO2, bedside ultrasound volume assessment, passive leg raise, trial of further fluid bolus. And preceded with IV fluids The patient's BULLET LUBRICATING MACHINE OPERATOR, Dr. Man, came to the bedside to evaluate the patient. She did state that she will admit the patient under her care in serious condition with an anticipated stay of greater than [address] Man indicated she had placed a postoperative hemostatic dressing into the abdominal cavity which she feels could have been mistaken on the CT scan as an abscess. However still obtained a CT scan with oral and rectal contrast for further evaluation into the possibility of a ruptured appendicitis. The patient at this time did not require blood transfusion as her hemoglobin was 9.9. It is currently 2046 and the patient has just finished drinking her oral contrast. Therefore the patient will shortly be taken to have her CT scan with oral and rectal contrast be performed. This will be followed up by the oncoming ER physician And the results will be informed to . Critical Care: Time: 60 minutes Treatments/Evaluations: Close monitoring and treatment of unstable vital signs, cardiorespiratory, and neurologic status, while maintaining tight balance of fluid, respiratory, and cardiac interventions. Time does not include performing any of the above billable procedures. Departure Diagnosis: Primary Impression: Postoperative intra-abdominal abscess Qualified Code: T81.4XXA - Postoperative intra-abdominal abscess, initial encounter Additional Impression: Sepsis Qualified Code: A41.9 - Sepsis, due to unspecified organism Condition: Serious ABIEL BLANCAS Dec 14, 2016 16:37
[2016-12-14] MEDS ORDERED: ONDANSETRON 4 MG INJ IV STA ×3 (17:03→19:41)
[2016-12-14] MEDS ORDERED: morphine 4 MG/ML VIAL IV STA (17:03)
[2016-12-14 17:05] LABS: ADD SCAN DIFF NO
[2016-12-14 17:06] LABS: ABNORMAL IP MESSAGE 1; HEMATOCRIT 30.5 % (37.0-47.0); HEMOGLOBIN 9.9 g/dl (12.0-16.0); MEAN CORPUSCULAR HEMOGLOBIN 30.5 pg (29.0-33.0); MEAN CORPUSCULAR HGB CONC 32.5 g/dl (32.0-37.0); MEAN CORPUSCULAR VOLUME 93.8 fl (82.0-101.0); MEAN PLATELET VOLUME 10.7 fl (7.4-10.4); PLATELET COUNT 407 10^3/UL (140-415); RED BLOOD COUNT 3.25 10^6/ul (4.20-5.40); RED CELL DISTRIBUTION WIDTH 15.5 % (11.5-14.5)
[2016-12-14] MEDS ORDERED: HYDR-902 PO (17:09)
[2016-12-14] MEDS ORDERED: IOHEXOL 300MG/ML 30 ML BTL ONE (17:12)
[2016-12-14] MEDS ORDERED: SOD CHLORIDE 0.9% 100 ML ONE (17:12)
[2016-12-14 17:18] LABS: ALBUMIN 2.9 g/dl (3.3-4.9)
[2016-12-14 17:19] LABS: CHLORIDE 93 mmol/L (97-110); POTASSIUM 3.6 mmol/L (3.5-5.1); SODIUM 132 mmol/L (135-144)
[2016-12-14 17:21] LABS: ALBUMIN/GLOBULIN RATIO 0.87; AMYLASE 50 U/L (11-123); ANION GAP 17 (8-16); ASPARTATE AMINO TRANSFERASE 36 IU/L (15-46); BILIRUBIN,INDIRECT 0.3 mg/dl (0-1.1); BILIRUBIN,TOTAL 0.3 mg/dl (0.2-1.3); BLOOD UREA NITROGEN 8 mg/dl (7-20); CARBON DIOXIDE 26 mmol/L (21-31); TOTAL PROTEIN 6.2 g/dl (6.1-8.1)
[2016-12-14 17:22] LABS: ALANINE AMINOTRANSFERASE 40 IU/L (13-69); ALKALINE PHOSPHATASE 158 IU/L (42-121); CALCIUM 8.3 mg/dl (8.4-10.2); GLUCOSE 160 mg/dl (70-220)
--- NOTE | 2016-12-14 17:45 | RADRPT ---
PROCEDURE: CT abdomen and pelvis with intravenous contrast. CLINICAL INDICATION: Abdominal Pain TECHNIQUE: Following intravenous contrast, spiral CT of the abdomen pelvis was performed and is re constructed at 2.5 mm contiguous axial intervals from the dome of the diaphragm to the inferior pubi c rami. Computer reformatted coronal and sagittal images are included. CT D I 22 millicurie Dose 1354 millicurie per centimeter COMPARISON: None. FINDINGS: Lung bases are clear of any infiltrate or mass. There is atelectasis at the right lung base with a tiny pleural effusions. Minimal atelectasis is seen at the left lung base. The liver is of normal size, contour and attenuation with no mass or intrahepatic ductal dilatation. No gallstones are present. No splenic, adrenal or pancreatic abnormalities present. Kidneys excrete contrast symmetrically. No calculus or masses present. There is minimal fullness o f the intrarenal collecting systems. Ureters are of normal course and caliber with no stone. No bl adder mass or stone is present. Uterus is been removed. No adnexal mass is present. No bowel mass or obstruction is seen. The appendix is not confidently visualized. Noted is an irregu lar shaped abscess arising from the pelvis measuring approximately 10.5 cm AP by 6.2 cm TR by 6 cm C C. There is a small volume of ascites and trace pneumoperitoneum. A second collection is seen with in the rectus sheath in the anterior pelvis measuring approximately 9 cm TR by 2.2 cm AP by 7 cm CC. These collections are amendable to CT guided drainage . No aneurysm is detected. There is no adenopathy. The osseous structures are intact. IMPRESSION: Large anterior pelvic abscess with second collection in rectum sheath anterior pelvis. Nonvisualizat ion uterus. Question recent hysterectomy with postsurgical abscess. Nonvisualization appendix. Qu estion ruptured appendicitis. Small volume ascites with trace pneumoperitoneum. Small right pleural effusion. Bibasilar atelectasis. .Huang Hernandez MD, MD Date Time Electronically viewed and signed by .Huang Hernandez MD, on 12/14/2016 17:44 .A/
[2016-12-14 17:48] LABS: TROPONIN-I < 0.012 ng/ml (0.00-0.12)
--- NOTE | 2016-12-14 17:54 | RADRPT ---
PROCEDURE: Portable chest x-ray. CLINICAL INDICATION: Upper abdominal pain. TECHNIQUE: Portable AP view of the chest. COMPARISON: None. FINDINGS: There is mild elevation of the hemidiaphragm and mild right basilar atelectasis. No pulmonary edema or conolidation is identified. The cardiac silhouette is magnified. No pleural effusion is seen. There is no pneumothorax. There is no pneumoperitoneum. IMPRESSION: 1. No evidence of acute cardiopulmonary disease. 2. No pneumoperitoneum. RPTAT: HTAR .Noble Del Rosario MD, MD Date Time Electronically viewed and signed by .Noble Del Rosario MD, on 12/14/2016 17:54 .R/
[2016-12-14] MEDS ORDERED: HYDROmorphONE 1 MG/ML SYG IV STA ×3 (18:13→21:53)
[2016-12-14 18:31] LABS: LYMPHOCYTES # 0.4 10^3/ul (0.8-2.9); MONOCYTE # 0.2 10^3/ul (0.3-0.9); NEUTROPHIL # 2.8 10^3/ul (1.6-7.5)
[2016-12-14] MEDS ORDERED: ACETAMINOPHEN 500 MG TAB PO STA (18:57)
[2016-12-14] MEDS ORDERED: ONDANSETRON 4 MG INJ IV PRN ×2 (19:30→23:30)
[2016-12-14] MEDS ORDERED: ACETAMINOPHEN 325 MG TAB PO PRN (19:30)
[2016-12-14 21:25] VITALS: TEMP 100
[2016-12-14 21:45] LABS: ADD UMIC YES; URINE BILIRUBIN (Dip) NEGATIVE (NEGATIVE); URINE BLOOD (Dip) 1+ (NEGATIVE); URINE COLOR YELLOW (YELLOW); URINE GLUCOSE (Dip) NEGATIVE (NEGATIVE); URINE KETONES (Dip) NEGATIVE (NEGATIVE); URINE LEUKOCYTE ESTERASE (Dip) NEGATIVE (NEGATIVE); URINE NITRITE (Dip) NEGATIVE (NEGATIVE); URINE TOTAL PROTEIN (Dip) 1+ (NEGATIVE); URINE UROBILINOGEN (Dip) 0.2 E.U./dL (0.1-1.0)
[2016-12-14 21:52] LABS: SQUAMOUS EPITHELIAL CELL,UR MODERATE
--- NOTE | 2016-12-14 22:28 | RADRPT ---
PROCEDURE: CT Abdomen and Pelvis without contrast. CLINICAL INDICATION: Right lower quadrant pain, status post hysterectomy 5 days ago. TECHNIQUE: A CT scan of the abdomen and pelvis was performed without intravenous contrast. Oral co ntrast was administered prior to the examination. Coronal and sagittal reformatted images were gener ated. Images were reviewed on a high-resolution PACS workstation. CTDIvol: 22.60 mGy. DLP: 1435.26 m Gy-cm. One or more of the following dose reduction techniques were used: - Automated exposure control. - Adjustment of the mA and/or kV according to patient size. - Use of iterative reconstruction technique. COMPARISON: None. FINDINGS: There is a small right pleural effusion. Mild to moderate atelectatic changes are noted in the lowe r lungs. Evaluation of the abdominal and pelvic viscera is limited by the lack of intravenous contrast. The liver is mildly enlarged (18.5 cm). The gallbladder is normal in appearance. The common bile du ct is not dilated. The spleen is not enlarged. No pancreatic lesion is identified and there is no pa ncreatic ductal dilatation. The adrenal glands are unremarkable. The kidneys are normal in size. There is no perinephric fat stranding. No hydronephrosis is seen. Ex creted intravenous contrast is seen within the bilateral renal collecting systems and ureters, limit ing evaluation for urinary stones. The urinary bladder contains a small to moderate volume of excret ed contrast. There is subcutaneous fat infiltration and scattered foci subcutaneous air in the anterior pelvic wa ll. There is also seen along the bilateral rectus abdominus muscles in the pelvis. A small amount o f pneumoperitoneum is also noted. These findings are consistent with recent hysterectomy. Diffuse p eritoneal fat infiltration and a small volume of ascites are noted. In addition, there is a 10.8 x 1 2.4 x 7.4 cm irregular air and fluid density collection in the hysterectomy bed, nonspecific. The o varies are grossly unremarkable. The small and large bowel are normal in caliber. There is no bowel wall thickening. There is a recta l tube in place. The appendix is normal. No lymphadenopathy is identified. A small volume of ascites is noted. No pneumoperitoneum is seen. T here are no arterial calcifications. No suspicious osseous lesion is idenitified. IMPRESSION: 1. Status post recent hysterectomy, with a small amount of postoperative air in the anterior abdomi nal and peritoneal cavity. 2. Diffuse peritoneal fat infiltration, nonspecific. Although this may simply represent postoperat jo-ann change, an infectious process is not excluded. 3. Nonspecific 10.8 x 12 a 4 x 7.4 cm irregular air and fluid density collection in the hysterectom y bed. It is unclear if this represents absorbable surgical material, a retained foreign body, and/ or an abscess. 4. Normal appendix. 5. Small volume of ascites. 6. Small right pleural effusion. Call report: A call report of the findings was made to Dr. Geronimo at 10:20 p.m. on 12/14/2016. RPTAT: HTAR .Noble Del Rosario MD, Date Time Electronically viewed and signed by .Noble Del Rosario MD, on 12/14/2016 22:28 .R/
[2016-12-14 22:30] VITALS: BP 105/55; RESP 18
[2016-12-14 22:37] VITALS: PULSE 118
[2016-12-14 23:24] VITALS: Ht 167.6 cm; Wt 102.3 kg
[2016-12-14] MEDS ORDERED: VANCOMYCIN IV PER PHARMACY XX SCH (23:30)
[2016-12-14] MEDS: OXYCODONE/ACETAMINOPHEN (5/325) TAB PO PRN (23:48)
[2016-12-15] VITALS (13 sets, daily range): BP systolic 100–115; BP diastolic 55–63; PULSE 107–121; RESP 18–26
[2016-12-15] MEDS: ZOLPIDEM 5 MG TAB PO PRN (00:31)
[2016-12-15] MEDS: LACTATED RINGER'S 1,000 ML IV SCH ×4 (00:31→23:30)
[2016-12-15] MEDS: OXYCODONE/ACETAMINOPHEN (5/325) TAB PO PRN ×5 (01:34→21:42)
[2016-12-15] MEDS: VANCOMYCIN 1.5 GM in SOD CHLORIDE 0.9% 250 ML IVPB SCH ×2 (01:36→15:46)
[2016-12-15] MEDS: PIPER-TAZO 3.375 GM IV (PMX) 100 ML IVPB SCH ×3 (05:25→21:43)
[2016-12-15] MEDS ORDERED: MAGNESIUM HYDROXIDE 30ML CUP PO ONE ×2 (06:30→12:30)
[2016-12-15] MEDS ORDERED: GLUCAGON 1 MG INJ IM PRN (07:00)
[2016-12-15] MEDS ORDERED: GLUCOSE GEL 15 GRAM TUBE PO PRN ×2 (07:00)
[2016-12-15] MEDS ORDERED: DEXTROSE 50% 50 ML SYRINGE IV PRN ×2 (07:00)
[2016-12-15] MEDS ORDERED: GLUCOSE GEL 15 GRAM TUBE BUCCAL PRN (07:00)
[2016-12-15] MEDS: INSULIN ASPART [NOVOLOG] 3 ML PEN SC SCH ×3 (08:00→17:30)
[2016-12-15 08:30] LABS: ALBUMIN 2.4 g/dl (3.3-4.9)
[2016-12-15 08:31] LABS: POTASSIUM 3.8 mmol/L (3.5-5.1)
[2016-12-15 08:33] LABS: ALBUMIN/GLOBULIN RATIO 0.85; BILIRUBIN,INDIRECT 0.4 mg/dl (0-1.1); BILIRUBIN,TOTAL 0.4 mg/dl (0.2-1.3); CREATININE 0.78 mg/dl (0.44-1.00); TOTAL PROTEIN 5.2 g/dl (6.1-8.1)
[2016-12-15 08:34] LABS: CALCIUM 7.3 mg/dl (8.4-10.2)
[2016-12-15] MEDS ORDERED: BISACODYL 10 MG SUPP PR ONE ×2 (09:00→12:30)
[2016-12-15 12:21] LABS: ADD SCAN DIFF NO
[2016-12-15 12:28] LABS: ABNORMAL IP MESSAGE 1; BASOPHILS % 0.2 % (0.0-2.0); EOSINOPHILS % 0.1 % (0.0-7.0); HEMATOCRIT 29.5 % (37.0-47.0); HEMOGLOBIN 9.1 g/dl (12.0-16.0); LYMPHOCYTES # 0.4 10^3/ul (0.8-2.9); MEAN CORPUSCULAR HEMOGLOBIN 29.8 pg (29.0-33.0); MEAN CORPUSCULAR HGB CONC 30.8 g/dl (32.0-37.0); MEAN CORPUSCULAR VOLUME 96.7 fl (82.0-101.0); MEAN PLATELET VOLUME 11.3 fl (7.4-10.4); MONOCYTE # 0.4 10^3/ul (0.3-0.9); MONOCYTES % 2.9 % (0.0-11.0); PLATELET COUNT 399 10^3/UL (140-415); RED BLOOD COUNT 3.05 10^6/ul (4.20-5.40); WHITE BLOOD COUNT 12.9 10^3/ul (4.8-10.8)
[2016-12-15] MEDS: DOCUSATE SODIUM 100 MG CAP PO SCH ×2 (14:28→21:42)
[2016-12-16] VITALS (12 sets, daily range): BP systolic 89–127; BP diastolic 51–72; PULSE 109–126; RESP 18–20
[2016-12-16] MEDS: ACCU-CHEK XX SCH (02:00)
[2016-12-16] MEDS: VANCOMYCIN 1.5 GM in SOD CHLORIDE 0.9% 250 ML IVPB SCH (02:00)
[2016-12-16] MEDS: PIPER-TAZO 3.375 GM IV (PMX) 100 ML IVPB SCH ×3 (05:56→22:03)
[2016-12-16] MEDS: OXYCODONE/ACETAMINOPHEN (5/325) TAB PO PRN ×3 (05:56→20:49)
[2016-12-16] MEDS ORDERED: MAGNESIUM HYDROXIDE 30ML CUP PO ONE (06:00)
[2016-12-16] MEDS: LACTATED RINGER'S 1,000 ML IV SCH ×2 (07:47→15:30)
[2016-12-16] MEDS: DOCUSATE SODIUM 100 MG CAP PO SCH ×3 (08:13→20:48)
[2016-12-16 09:52] LABS: ADD SCAN DIFF NO
[2016-12-16 09:57] LABS: ABNORMAL IP MESSAGE 1; HEMATOCRIT 24.9 % (37.0-47.0); HEMOGLOBIN 8.1 g/dl (12.0-16.0); MEAN CORPUSCULAR HEMOGLOBIN 30.2 pg (29.0-33.0); MEAN CORPUSCULAR HGB CONC 32.5 g/dl (32.0-37.0); MEAN CORPUSCULAR VOLUME 92.9 fl (82.0-101.0); MEAN PLATELET VOLUME 11.2 fl (7.4-10.4); PLATELET COUNT 361 10^3/UL (140-415); RED BLOOD COUNT 2.68 10^6/ul (4.20-5.40); RED CELL DISTRIBUTION WIDTH 16.2 % (11.5-14.5); WHITE BLOOD COUNT 22.4 10^3/ul (4.8-10.8)
[2016-12-16] MEDS ORDERED: GENTAMICIN IV PER PHARMACY XX SCH (12:00)
[2016-12-16] MEDS ORDERED: SOD CHLORIDE 0.9% IVPB SCH (13:00)
[2016-12-16] MEDS ORDERED: GENTAMICIN IVPB SCH (13:00)
[2016-12-16 13:19] LABS: EOSINOPHILS # 0.2 10^3/ul (0.0-0.5); LYMPHOCYTES # 1.1 10^3/ul (0.8-2.9); MONOCYTE # 0.7 10^3/ul (0.3-0.9); NEUTROPHIL # 10.3 10^3/ul (1.6-7.5)
[2016-12-16 13:20] LABS: TOXIC GRANULATION FEW
[2016-12-16] MEDS: CLINDAMYCIN 900 MG/D5W (PMX) 50 ML IVPB SCH ×2 (16:06→22:03)
[2016-12-16] MEDS: SOD CHLORIDE 0.9% 1,000 ML IV SCH (17:47)
[2016-12-16] MEDS: ACETAMINOPHEN 325 MG TAB PO PRN (17:49)
[2016-12-16 18:40] LABS: ALBUMIN 2.4 g/dl (3.3-4.9)
[2016-12-16 18:41] LABS: POTASSIUM 3.9 mmol/L (3.5-5.1)
[2016-12-16 18:43] LABS: ALBUMIN/GLOBULIN RATIO 0.77; BILIRUBIN,INDIRECT 0.2 mg/dl (0-1.1); BILIRUBIN,TOTAL 0.2 mg/dl (0.2-1.3); CREATININE 1.4 mg/dl (0.44-1.00); TOTAL PROTEIN 5.5 g/dl (6.1-8.1)
[2016-12-16 18:44] LABS: CALCIUM 7.6 mg/dl (8.4-10.2)
--- NOTE | 2016-12-16 18:58 | CONS ---
Date/Time of Note Date/Time of Note DATE: 12/16/16 TIME: 18:57 Assessment/Plan Assessment/Plan Additional Assessment/Plan 41-year-old female with: 1. Sirs/sepsis, still tachycardic with significant leukocytosis with left shift and significant bandemia but afebrile, she likely has gram-negative selene sepsis, repeat blood cultures pending, agree with Zosyn and gentamicin for double coverage. Infectious disease consult pending. Patient also on clindamycin. She is currently hemodynamically stable and on telemetry. Agree with change of IV fluids to normal saline at 125/hr Serial abdominal exam, lactic acid to be repeated in a.m. 2. Status post total abdominal hysterectomy, lysis of severe pelvic and abdominal adhesions, and vaginal vault suspension on 12/[address] Clarke, she is POD # 6 with CAT scan finding questioning possible abscess. Follow-up laboratory data in a.m., follow-up infectious disease recommendation, will discuss further possible surgical intervention if patient not improving clinically 3. Anemia acute on chronic: Monitor hemoglobin closely, check coagulation factors with a.m. labs Prophylaxis: SCDs for DVT prophylaxis, Pepcid for GI prophylaxis Disposition: Repeat blood cultures pending, repeat UA urine culture pending, change of antibiotics today, repeat labs in a.m. Follow-up infectious disease recommendations Consultation Date/Type/Reason Admit Date/Time Dec 14, 2016 at 19:07 Date of Consultation: Dec 16, 2016 Type of Consultation: Internal medicine Reason for Consultation Sepsis Referring Provider: NAVEED CLARKE MD Hx of Present Illness This is a 41-year-old female, s/p exploratory laparotomy, total abdominal hysterectomy, lysis of severe pelvic and abdominal adhesions, and vaginal vault suspension on 12/[address] Clarke Patient was discharged in stable condition on Tuesday 12/12. According to the patient and her family member she was doing well on Thursday, she has been eating soft food and Jell-O. On Thursday she started complaining of some abdominal pain, the mother saw that she was constipated therefore she gave her some prune juice, patient kept complaining of severe abdominal pain, she was brought to the emergency department, she was found to be tachycardic and had a febrile episode with fever up to 103. She had a CAT scan of the abdomen and pelvis which reported a nonspecific 10.8 x 12 a 4 x 7.4 cm irregular air and fluid density collection in the hysterectomy bed, unclear if this represents absorbable surgical material, a retained foreign body, and/or an abscess. Dr. Clarke, the surgeon did admit the patient at that time, she was started on vancomycin and Zosyn, urine culture at that time showing mixed organisms, blood cultures showing gram-positive cocci in clusters and gram-negative rods. Her antibiotics today were changed to gentamicin and clindamycin along with Zosyn since her white blood cell count kept increasing with a left shift and significant bandemia today. Repeat labs are pending. Dr. Wheeler is consulted for infectious disease, patient is on IV fluids and being monitored on telemetry , we will trend her lactic acid. She is afebrile as of now but still tachycardic with signs of SIRS/sepsis. I have talked to Dr. Correa, repeat blood cultures are pending and I will also order repeat UA and urine culture. I have updated the family as much as I could at least from the medical standpoint, surgical postoperative and surgical updates to be provided by the surgeon Past Medical History Menometrorrhagia secondary to bleeding fibroids, status post total abdominal hysterectomy on 12/10/16 Chronic anemia secondary to menometrorrhagia Obesity Past Surgical History Status post exploratory laparotomy, total abdominal hysterectomy, lysis of severe pelvic and abdominal adhesions, and vaginal vault suspension on 12/[address] Clarke Status post 4 years ago Family History Significant Family History: no pertinent family hx Social History Alcohol Use: none Smoking Status: Never smoker Exam/Review of Systems Vital Signs Vitals Vital Signs Date Time Temp Pulse Resp B/P Pulse Ox O2 Delivery O2 Flow Rate FiO2 12/16/16 16:02 99.3 116 19 114/62 94 12/16/16 09:00 Nasal Cannula 2.0 Intake and Output 12/15/16 12/15/16 12/16/16 15:00 23:00 07:00 Intake Total 1100 ml 550 ml 1625 ml Balance 1100 ml 550 ml 1625 ml Exam Constitutional: alert, obese, oriented, other (Lethargic) Respiratory: clear to auscultation, normal air movement Cardiovascular: other (Tachycardic), regular rate and rhythm Gastrointestinal: soft, tender (mild abdominal TTP ) Musculoskeletal: nl extremities to inspection Extremities: normal pulses, other (No edema clubbing or cyanosis) Neurological: TILE DITCHER II-XII intact, nl mental status, nl speech Results Result Diagram: 12/16/16 0937 12/16/16 1806 Results 24 hrs Laboratory Tests Test 12/16/16 09:37 12/16/16 18:06 White Blood Count 22.4 #H Red Blood Count 2.68 L Hemoglobin 8.1 L Hematocrit 24.9 L Mean Corpuscular Volume 92.9 Mean Corpuscular Hemoglobin 30.2 Mean Corpuscular Hemoglobin Concent 32.5 Red Cell Distribution Width 16.2 H Platelet Count 361 Mean Platelet Volume 11.2 H Neutrophils % 46.0 Band Neutrophils % 45.0 H Lymphocytes % 5.0 L Monocytes % 3.0 Eosinophils % 1.0 Neutrophils # 10.3 H Lymphocytes # 1.1 Monocytes # 0.7 Eosinophils # 0.2 Toxic Granulation FEW Sodium Level 131 L Potassium Level 3.9 Chloride Level 94 L Carbon Dioxide Level 24 Anion Gap 17 H Blood Urea Nitrogen 24 #H Creatinine 1.40 H Glucose Level 113 Lactic Acid Level 2.7 H Calcium Level 7.6 L Total Bilirubin 0.2 Direct Bilirubin 0.00 Indirect Bilirubin 0.2 Aspartate Amino Transf (AST/SGOT) 43 Alanine Aminotransferase (ALT/SGPT) 25 Alkaline Phosphatase 179 #H Total Protein 5.5 L Albumin 2.4 L Globulin 3.10 Albumin/Globulin Ratio 0.77 Medications Medications Current Medications Oxycodone/ Acetaminophen (Percocet (5/ 325)) 1 tab Q4H PRN PO PAIN Last administered on 12/16/16 16:12; Admin Dose 1 TAB; Start 12/14/16 at 23:30 Oxycodone/ Acetaminophen 2 tab 2 tab Q3H PRN PO SEVERE PAIN Last administered on 12/15/16 10:19; Admin Dose 2 TAB; Start 12/14/16 at 23:30 Piperacillin Sod/ Tazobactam Sod (Zosyn 3.375gm/ 100 ml (Pmx)) 100 ml @ 200 mls /hr Q8 IVPB Last administered on 12/16/16 12:57; Admin Dose 200 MLS/HR; Start 12/15/16 at 06:00 Acetaminophen (Tylenol Tab) 650 mg Q6H PRN PO PAIN AND OR ELEVATED TEMP Last administered on 12/16/16 17:49; Admin Dose 650 MG; Start 12/14/16 at 23:30 Zolpidem Tartrate (Ambien) 10 mg HS PRN PO INSOMNIA Last administered on 00:31; Admin Dose 10 MG; Start 12/14/16 at 23:30 Ondansetron HCl (Zofran Inj) 4 mg Q4H PRN IV NAUSEA AND/OR VOMITING; Start 12/14 at 23:30 Diagnostic Test (Pha) (Accu-Chek) 1 ea 02 XX ; Start 12/16/16 at 02:00 Miscellaneous Information 1 ea NOTE XX ; Start 12/15/16 at 07:00 Glucose (Glutose) 15 gm Q15M PRN PO DECREASED GLUCOSE; Start 12/15/16 at 07:00 Glucose (Glutose) 22.5 gm Q15M PRN PO DECREASED GLUCOSE; Start 12/15/16 at 07:00 Dextrose (D50w Syringe) 25 ml Q15M PRN IV DECREASED GLUCOSE; Start 12/15/16 at 07:00 Dextrose (D50w Syringe) 50 ml Q15M PRN IV DECREASED GLUCOSE; Start 12/15/16 at 07:00 Glucagon (Glucagen) 1 mg Q15M PRN IM DECREASED GLUCOSE; Start 12/15/16 at 07:00 Glucose (Glutose) 15 gm Q15M PRN BUCCAL DECREASED GLUCOSE; Start 12/15/16 at 07: 00 Docusate Sodium 100 mg 100 mg TID PO Last administered on 12/16/16 12:57; Admin Dose 100 MG; Start 12/15/16 at 13:00 Clindamycin HCl/ Dextrose (Cleocin 900 Mg/ D5W (Pmx)) 50 ml @ 50 mls/hr Q8 IVPB Last administered on 12/16/16 16:06; Admin Dose 50 MLS/HR; Start 12/16/16 at 14 :00 Gentamicin Sulfate GENTAMICIN PER PHARMACY NOTE XX ; Start 12/16/16 at 12:00 Gentamicin Sulfate/Sodium Chloride (Gentamicin/NS) 112.5 ml @ 103.75 mls/ hr Q24H IVPB Last administered on 12/16/16 14:25; Admin Dose 103.75 MLS/HR; Start 12/16/16 at 13:00 Miscellaneous Information GENTAMICIN POST DOSE RAN... ONCE ONCE XX ; Start 12/17 at 01:00; Stop 12/17/16 at 01:01 Sodium Chloride (NS) 1,000 ml @ 125 mls/hr Q8H IV Last administered on t 17:47; Admin Dose 125 MLS/HR; Start 12/16/16 at 17:00 MEERA PERAZA Dec 16, 2016 18:58
[2016-12-16] MEDS: FAMOTIDINE 20 MG TAB PO SCH (20:49)
[2016-12-17] VITALS (11 sets, daily range): BP systolic 92–118; BP diastolic 50–55; PULSE 88–104; RESP 17–19
[2016-12-17] MEDS: OXYCODONE/ACETAMINOPHEN (5/325) TAB PO PRN ×5 (00:52→23:38)
[2016-12-17] MEDS: SOD CHLORIDE 0.9% 1,000 ML IV SCH ×3 (01:00→17:00)
[2016-12-17] MEDS ORDERED: [UNRECOGNIZED DRUG - REMARK] XX ONE (01:00)
[2016-12-17] MEDS: ACCU-CHEK XX SCH (02:00)
--- NOTE | 2016-12-17 03:26 | HP ---
DATE OF ADMISSION: 12/14/2016 HISTORY OF PRESENT ILLNESS: This is a 41-year-old lady, 6, para 1 with 1 ectopic , and she was admitted through the emergency room because of lower abdominal pain. The patient claim s that she was feeling warm at home, and at the emergency room, the temperature was 103. This patie nt was just discharged from [facility] on 12/12/2016. She underwent a total abdom inal hysterectomy and lysis of severe pelvic and abdominal adhesions and vaginal vault suspension. The postoperative diagnosis was submucosal fibroid, adenomyosis, severe pelvic and abdominal adhesio ns, perineal relaxation, chronic pelvic pain, as well as iron deficiency anemia. She did have good postoperative course at that time, and she was discharged home on the second postoperative day with general diet, and activity was restricted. She had good bowel movement prior to discharge. She had done a CT scan of the abdomen, and CT showed a mass on the site of the hysterectomy. This patient, after irrigation during the hysterectomy, fibrillar 2 of them were applied at the vaginal cuff and also on both sides of the pelvis, fibrillar was applied. The questionable abscess that was noted fr om the CT scan most likely this is the fibrillar that was applied. She was admitted for IV antibiot ics and observation. The plans were explained to the patient and to her mother, and both understood everything totally. PAST PERSONAL HISTORY: No history of diabetes, TB, asthma. ALLERGIES: NO ALLERGIES. SOCIAL HISTORY: The patient does not smoke. She does not drink. She does not take any drugs. Also, this patient has not had a bowel movement since the patient was discharged. GYNECOLOGIC HISTORY: She had menarche at the age of 14, every 28 days interval, 3 to 4 days duratio n, and moderate in amount. FAMILY HISTORY: Mother has high blood pressure. Father has diabetes. She is 4, para 5 wit h 1 and 4 normal deliveries. She had 1 ectopic . REVIEW OF SYSTEMS: CARDIOVASCULAR: No chest pains. RESPIRATORY: No cough. GASTROINTESTINAL: No diarrhea, no vomiting. GENITOURINARY: No dysuria. PHYSICAL EXAMINATION: GENERAL: Reveals a conscious, coherent lady in no acute distress. VITAL SIGNS: Blood pressure 110/70, pulse rate 100 per minute, respirations 16 per minute, temperat ure on admission was 98.6. BREASTS, HEART, AND LUNGS: Within normal limits. ABDOMEN: Soft, tenderness noted on the abdominal incision. PELVIC: Revealed the vaginal cuff to be clean and no definite masses felt. RECTAL: Confirmed the pelvic findings. EXTREMITIES: No pedal edema. ADMITTING DIAGNOSIS: Status post total abdominal hysterectomy and lysis of severe pelvic and abdomi nal adhesions and vaginal vault suspension. PLAN: The patient was planned to have IV antibiotics, continue with vancomycin and Zosyn, and await blood culture and sensitivity results. Dictated By: NAVEED CLARKE MD NS/NTS Conf#: [id number] DID#: [id number] CC: NAVEED CLARKE MD;*EndCC*
[2016-12-17] MEDS: CLINDAMYCIN 900 MG/D5W (PMX) 50 ML IVPB SCH ×3 (05:06→22:20)
[2016-12-17] MEDS: PIPER-TAZO 3.375 GM IV (PMX) 100 ML IVPB SCH (05:06)
[2016-12-17 06:43] LABS: ADD SCAN DIFF NO
[2016-12-17 06:46] LABS: ABNORMAL IP MESSAGE 1; HEMOGLOBIN 7.1 g/dl (12.0-16.0); MEAN CORPUSCULAR HEMOGLOBIN 29.7 pg (29.0-33.0); MEAN CORPUSCULAR HGB CONC 32.3 g/dl (32.0-37.0); MEAN CORPUSCULAR VOLUME 92.1 fl (82.0-101.0); MEAN PLATELET VOLUME 11.2 fl (7.4-10.4); PLATELET COUNT 333 10^3/UL (140-415); RED BLOOD COUNT 2.39 10^6/ul (4.20-5.40); RED CELL DISTRIBUTION WIDTH 16.3 % (11.5-14.5); WHITE BLOOD COUNT 21.4 10^3/ul (4.8-10.8)
[2016-12-17 06:51] LABS: ADD UMIC YES; URINE BILIRUBIN (Dip) NEGATIVE (NEGATIVE); URINE BLOOD (Dip) TRACE (NEGATIVE); URINE COLOR LT. YELLOW (YELLOW); URINE GLUCOSE (Dip) NEGATIVE (NEGATIVE); URINE KETONES (Dip) NEGATIVE (NEGATIVE); URINE LEUKOCYTE ESTERASE (Dip) NEGATIVE (NEGATIVE); URINE NITRITE (Dip) NEGATIVE (NEGATIVE); URINE TOTAL PROTEIN (Dip) 1+ (NEGATIVE); URINE UROBILINOGEN (Dip) 0.2 E.U./dL (0.1-1.0)
[2016-12-17 06:56] LABS: INR 1.15; PROTIME 14.7 Sec (12.2-14.2); PT RATIO 1.1
[2016-12-17 06:57] LABS: PARTIAL THROMBOPLASTIN TIME 32.6 Sec (25.0-35.0)
[2016-12-17 07:08] LABS: ALBUMIN 2.3 g/dl (3.3-4.9)
[2016-12-17 07:09] LABS: POTASSIUM 3.9 mmol/L (3.5-5.1)
[2016-12-17 07:11] LABS: ALBUMIN/GLOBULIN RATIO 0.82; BILIRUBIN,INDIRECT 0.1 mg/dl (0-1.1); BILIRUBIN,TOTAL 0.1 mg/dl (0.2-1.3); CREATININE 1.71 mg/dl (0.44-1.00); TOTAL PROTEIN 5.1 g/dl (6.1-8.1)
[2016-12-17 07:12] LABS: CALCIUM 7.4 mg/dl (8.4-10.2)
[2016-12-17 07:25] LABS: URINE RBCS 0-2 /HPF (0)
[2016-12-17] MEDS: FAMOTIDINE 20 MG TAB PO SCH (09:02)
[2016-12-17] MEDS: DOCUSATE SODIUM 100 MG CAP PO SCH ×3 (09:02→20:40)
[2016-12-17 10:02] LABS: LYMPHOCYTES # 1.1 10^3/ul (0.8-2.9); MONOCYTE # 0.4 10^3/ul (0.3-0.9); NEUTROPHIL # 17.8 10^3/ul (1.6-7.5)
--- NOTE | 2016-12-17 10:26 | RADRPT ---
PROCEDURE: Retroperitoneal US. CLINICAL INDICATION: Pelvic pain, status post hysterectomy TECHNIQUE: Multiple sonographic images of the kidneys and retroperitoneum were obtained. The imag es were reviewed on a PACS workstation. COMPARISON: 12/14/2016 FINDINGS: The kidneys are normal in size, contour, cortical thickness and cortical echogenicity. The right kidney measures 13.1 cm. The left kidney measures 11.8 cm. No kidney stones are visualized. There is no evidence for hydronephrosis. The urinary bladder is not visualized. There is a complex fluid collection seen superior to the right kidney, measuring 6.8 x 1.6 cm. RPTAT: AA IMPRESSION: Normal appearance of the kidneys with no evidence of hydronephrosis. Complex fluid collection seen in the right upper quadrant, near the edge of the liver. .Jerome Vo MD, Date Time Electronically viewed and signed by .Jerome Vo MD, MD on 12/17/2016 10:26 .S/
[2016-12-17] MEDS ORDERED: SOD CHLORIDE 0.9% 250 ML IV* ONE (11:18)
--- NOTE | 2016-12-17 11:28 | PN ---
Date/Time of Note Date/Time of Note DATE: 12/17/16 TIME: 11:10 Assessment/Plan VTE Prophylaxis VTE Prophylaxis Intervention: SCD's Lines/Catheters IV Catheter Type (from [facility]): Peripheral IV Urinary Cath still in place: No Assessment/Plan Assessment/Plan 41-year-old female with: 1. Sirs/sepsis, still tachycardic with significant leukocytosis with left shift and significant bandemia but afebrile, she likely has gram-negative selene sepsis Improved bandemia today and WBC seems to be slightly trending down Repeat blood cultures pending, Continue Zosyn and gentamicin for double coverage. Infectious disease consult pending. Patient also on clindamycin. She is currently hemodynamically stable and on telemetry. Continue normal saline at 125/hr Serial abdominal exam, lactic acid down to normal this AM. 2. Status post total abdominal hysterectomy, lysis of severe pelvic and abdominal adhesions, and vaginal vault suspension on 12/[address] Man, she is POD # 6 with CAT scan finding questioning possible abscess. Follow-up laboratory data in a.m., follow-up infectious disease recommendation, will discuss further possible surgical intervention if patient not improving clinically 3. Anemia acute on chronic: Hb down to 7.1, will transfuse 2 units Monitor hemoglobin closely. 4. LUIS F in setting of sepsis, check renal US this AM and monitor renal function and UOP. Prophylaxis: SCDs for DVT prophylaxis, Pepcid for GI prophylaxis Disposition: Repeat blood cultures pending, repeat UA negative and repeat urine culture pending, Repeat labs in a.m. Follow-up infectious disease and Boat Joiner Helper recommendations today Subjective 24 Hr Interval Summary Free Text/Dictation Patient doing better this AM and remains hemodynamically stable Transfusing pRBC this AM and renal US pending Follow up ID recs and Boat Joiner Helper recs Follow up cultures Exam/Review of Systems Vital Signs Vitals Vital Signs Date Time Temp Pulse Resp B/P Pulse Ox O2 Delivery O2 Flow Rate FiO2 12/17/16 09:41 Nasal Cannula 2.0 12/17/16 08:39 103 12/17/16 08:14 98.8 18 92/50 94 Intake and Output 12/16/16 12/16/16 12/17/16 15:00 23:00 07:00 Intake Total 100 ml 2011.5 ml 600 ml Balance 100 ml 2012.5 ml 600 ml Exam Constitutional: alert, obese, oriented, well developed Respiratory: clear to auscultation, normal air movement Cardiovascular: nl pulses, regular rate and rhythm Gastrointestinal: non-tender, soft Musculoskeletal: nl extremities to inspection Extremities: normal pulses, other (no edema, clubbing or cyanosis ) Neurological: SUPERINTENDENT SYSTEM OPERATION II-XII intact, nl mental status, nl speech, other ( generalized weakness ) Results Result Diagram: 12/17/16 0544 12/17/16 0549 Results 24 hrs Laboratory Tests Test 12/16/16 18:06 12/17/16 00:56 12/17/16 04:00 12/17/16 05:44 Sodium Level 131 L Potassium Level 3.9 Chloride Level 94 L Carbon Dioxide Level 24 Anion Gap 17 H Blood Urea Nitrogen 24 #H Creatinine 1.40 H Glucose Level 113 Lactic Acid Level 2.7 H Calcium Level 7.6 L Total Bilirubin 0.2 Direct Bilirubin 0.00 Indirect Bilirubin 0.2 Aspartate Amino Transf (AST/SGOT) 43 Alanine Aminotransferase (ALT/SGPT) 25 Alkaline Phosphatase 179 #H Total Protein 5.5 L Albumin 2.4 L Globulin 3.10 Albumin/Globulin Ratio 0.77 Random Gentamicin Level 6.7 Urine Color LT. YELLOW Urine Clarity CLEAR Urine pH 5.5 Urine Specific Mcewen <=1.005 L Urine Ketones NEGATIVE Urine Nitrite NEGATIVE Urine Bilirubin NEGATIVE Urine Urobilinogen 0.2 E.U./dL Urine Leukocyte Esterase NEGATIVE Urine Microscopic RBC 0-2 Urine Microscopic WBC NONE SEEN Urine Epithelial Cells OCCASIONAL Urine Hemoglobin TRACE Urine Glucose NEGATIVE Urine Total Protein 1+ H White Blood Count 21.4 H Red Blood Count 2.39 L Hemoglobin 7.1 L Hematocrit 22.0 L Mean Corpuscular Volume 92.1 Mean Corpuscular Hemoglobin 29.7 Mean Corpuscular Hemoglobin Concent 32.3 Red Cell Distribution Width 16.3 H Platelet Count 333 Mean Platelet Volume 11.2 H Neutrophils % 83.0 H Band Neutrophils % 10.0 H Lymphocytes % 5.0 L Monocytes % 2.0 Eosinophils % Neutrophils # 17.8 H Lymphocytes # 1.1 Monocytes # 0.4 Eosinophils # Differential Comment MANUAL DIFF Large Platelets OCCASIONAL Test 12/17/16 05:49 Prothrombin Time 14.7 H Prothrombin Time Ratio 1.1 INR International Normalized Ratio 1.15 Activated Partial Thromboplast Time 32.6 Sodium Level 129 L Potassium Level 3.9 Chloride Level 100 Carbon Dioxide Level 23 Anion Gap 10 # Blood Urea Nitrogen 24 H Creatinine 1.71 H Glucose Level 124 Lactic Acid Level 1.4 Calcium Level 7.4 L Total Bilirubin 0.1 L Direct Bilirubin 0.00 Indirect Bilirubin 0.1 Aspartate Amino Transf (AST/SGOT) 52 H Alanine Aminotransferase (ALT/SGPT) 35 Alkaline Phosphatase 244 H Total Protein 5.1 L Albumin 2.3 L Globulin 2.80 Albumin/Globulin Ratio 0.82 Medications Medications Current Medications Oxycodone/ Acetaminophen (Percocet (5/ 325)) 1 tab Q4H PRN PO PAIN Last administered on 12/17/16 05:06; Admin Dose 1 TAB; Start 12/14/16 at 23:30 Oxycodone/ Acetaminophen (Percocet (5/ 325)) 2 tab Q3H PRN PO SEVERE PAIN Last administered on 12/15/16 10:19; Admin Dose 2 TAB; Start 12/14/16 at 23:30 Acetaminophen (Tylenol Tab) 650 mg Q6H PRN PO PAIN AND OR ELEVATED TEMP Last administered on 12/16/16 17:49; Admin Dose 650 MG; Start 12/14/16 at 23:30 Zolpidem Tartrate (Ambien) 10 mg HS PRN PO INSOMNIA Last administered on 00:31; Admin Dose 10 MG; Start 12/14/16 at 23:30 Ondansetron HCl (Zofran Inj) 4 mg Q4H PRN IV NAUSEA AND/OR VOMITING; Start 12/14 at 23:30 Diagnostic Test (Pha) (Accu-Chek) 1 ea 02 XX ; Start 12/16/16 at 02:00 Miscellaneous Information 1 ea NOTE XX ; Start 12/15/16 at 07:00 Glucose (Glutose) 15 gm Q15M PRN PO DECREASED GLUCOSE; Start 12/15/16 at 07:00 Glucose (Glutose) 22.5 gm Q15M PRN PO DECREASED GLUCOSE; Start 12/15/16 at 07:00 Dextrose (D50w Syringe) 25 ml Q15M PRN IV DECREASED GLUCOSE; Start 12/15/16 at 07:00 Dextrose (D50w Syringe) 50 ml Q15M PRN IV DECREASED GLUCOSE; Start 12/15/16 at 07:00 Glucagon (Glucagen) 1 mg Q15M PRN IM DECREASED GLUCOSE; Start 12/15/16 at 07:00 Glucose (Glutose) 15 gm Q15M PRN BUCCAL DECREASED GLUCOSE; Start 12/15/16 at 07: 00 Docusate Sodium 100 mg 100 mg TID PO Last administered on 12/17/16 09:02; Admin Dose 100 MG; Start 12/15/16 at 13:00 Clindamycin HCl/ Dextrose (Cleocin 900 Mg/ D5W (Pmx)) 50 ml @ 50 mls/hr Q8 IVPB Last administered on 12/17/16 05:06; Admin Dose 50 MLS/HR; Start 12/16/16 at 14 :00 Gentamicin Sulfate GENTAMICIN PER PHARMACY NOTE XX ; Start 12/16/16 at 12:00 Sodium Chloride (NS) 1,000 ml @ 125 mls/hr Q8H IV Last administered on 05:13; Admin Dose 125 MLS/HR; Start 12/16/16 at 17:00 Famotidine 20 mg 20 mg BID PO Last administered on 12/17/16 09:02; Admin Dose 20 MG; Start 12/16/16 at 21:00 Piperacillin Sod/ Tazobactam Sod 50 ml @ 100 mls/hr Q8 IVPB ; Start 12/17/16 at 14:00 Gentamicin Sulfate/Sodium Chloride (Gentamicin/NS) 109.5 ml @ 103.75 mls/ hr Q48H IVPB ; Start 12/18/16 at 16:00 MEERA PERAZA Dec 17, 2016 11:21
[2016-12-17] MEDS: ACETAMINOPHEN 325 MG TAB PO PRN (12:53)
[2016-12-17] MEDS: PIPER-TAZO 2.25 GM (PMX) 50 ML IVPB SCH ×2 (15:28→20:41)
--- NOTE | 2016-12-17 16:45 | PN ---
DATE: 12/17/2016 SUBJECTIVE: No acute events. The patient is alert, lying comfortably in bed. Denies pain, no feve rs. LABORATORY: WBC today 21.4, H and H 7.1 and 22, platelets 333, neutrophils 83, bands 10, lymphs 5, monos 2. BUN 24, creatinine 1.71. MICROBIOLOGY: Blood culture growing coagulase-negative staph and gram-negative rods. Urine culture consistent with contaminant. Urinalysis revealed negative nitrite and leukocyte esterase. ANTIMICROBIALS: The patient is on: 1. Zosyn. 2. Gentamicin. DIAGNOSTICS: CT of the abdomen and pelvis revealed nonspecific 10.8 x 12 x 4 x 7.4 cm irregular air and fluid density collection in the hysterectomy bed. Renal ultrasound this morning revealed no ev idence of hydronephrosis, complex fluid collection in the right upper quadrant near the edge of the liver. PHYSICAL EXAMINATION: GENERAL: This is an obese, well-developed, middle-aged woman who is alert, in no distress. HEENT: Head atraumatic, normocephalic. Sclerae anicteric. Buccal mucosa dry. NECK: Supple, trachea midline. CHEST: Rise symmetrical. Breath sounds clear, diminished at the bases. HEART: S1, S2. ABDOMEN: Soft. Bowel tones present. Lower abdominal incision clean, dry and intact. EXTREMITIES: Without cyanosis. ASSESSMENT: 1. Systemic inflammatory response syndrome with fevers and leukocytosis. 2. History of recent total abdominal hysterectomy with lysis of pelvic and abdominal adhesions and vaginal wall suspension. 3. Questionable intraabdominal postoperative abscess. 4. Gram-negative selene bacteremia. PLAN: The patient is clinically stable. She is being seen by Dr. Man. We are going to discont inue gentamicin. Keep her on clindamycin and Zosyn for now. Repeat blood cultures. The patient kaylin loyola need CT-guided abscess aspiration or another surgical intervention. We will discuss with Dr. Kaminski and surgery. Dictated By: JOSE TRUONG PARAMEDIC INSTRUCTOR for LUIS FORREST/DARSHAN Conf#: [id number] DID#: [id number]
[2016-12-18] VITALS (11 sets, daily range): BP systolic 114–138; BP diastolic 56–65; PULSE 84–101; RESP 18–19
[2016-12-18] MEDS: ACCU-CHEK XX SCH (02:00)
[2016-12-18] MEDS: SOD CHLORIDE 0.9% 1,000 ML IV SCH ×3 (04:17→15:59)
[2016-12-18] MEDS: OXYCODONE/ACETAMINOPHEN (5/325) TAB PO PRN ×5 (04:27→21:17)
[2016-12-18] MEDS: PIPER-TAZO 2.25 GM (PMX) 50 ML IVPB SCH ×3 (05:25→21:17)
[2016-12-18] MEDS: CLINDAMYCIN 900 MG/D5W (PMX) 50 ML IVPB SCH ×2 (05:58→13:17)
[2016-12-18 07:41] LABS: ADD SCAN DIFF NO
[2016-12-18 07:53] LABS: HEMOGLOBIN 9.4 g/dl (12.0-16.0); MEAN CORPUSCULAR HEMOGLOBIN 29.3 pg (29.0-33.0); MEAN CORPUSCULAR HGB CONC 32.4 g/dl (32.0-37.0); MEAN CORPUSCULAR VOLUME 90.3 fl (82.0-101.0); MEAN PLATELET VOLUME 10.7 fl (7.4-10.4); PLATELET COUNT 344 10^3/UL (140-415); RED BLOOD COUNT 3.21 10^6/ul (4.20-5.40); RED CELL DISTRIBUTION WIDTH 16.7 % (11.5-14.5); WHITE BLOOD COUNT 17.5 10^3/ul (4.8-10.8)
[2016-12-18 08:02] LABS: ALBUMIN 2.4 g/dl (3.3-4.9); PHOSPHORUS 5.9 mg/dl (2.5-4.9); POTASSIUM 3.4 mmol/L (3.5-5.1)
[2016-12-18 08:03] LABS: MAGNESIUM 2.4 mg/dl (1.7-2.5)
[2016-12-18 08:04] LABS: CREATININE 2.12 mg/dl (0.44-1.00)
[2016-12-18 08:05] LABS: ALBUMIN/GLOBULIN RATIO 0.77; BILIRUBIN,DIRECT 0.5 mg/dl (0.00-0.20); BILIRUBIN,INDIRECT 0.5 mg/dl (0-1.1); CALCIUM 7.8 mg/dl (8.4-10.2); TOTAL PROTEIN 5.5 g/dl (6.1-8.1)
--- NOTE | 2016-12-18 08:09 | CONS ---
DATE OF ADMISSION: 12/14/2016 DATE OF CONSULTATION: 12/17/2016 TYPE OF CONSULTATION: Infectious Disease. REASON FOR CONSULTATION: Antibiotic management. HISTORY OF PRESENT ILLNESS: The patient is a 41-year-old female who had a hysterectomy last week an d now has a fever starting on 12/14/2016. The patient had the procedure done by Dr. Man. The p atient is 6, para 1 with 1 ectopic . She was admitted through the emergency r oom with lower abdominal pain, a feeling of warmth at home and a temperature of 103. She was discha rged from [facility] on 12/12/2016. She underwent a total abdominal hysterectomy, lysis of severe pelvic and abdominal adhesions and vaginal vault suspension. She had submucosal fibroids, a denomyosis and numerous other problems. She had good postoperative course. She had had a CT scan o f the abdomen and CT scan showed a mass at the site of the hysterectomy. There was a questionable a bscess, was most likely some fibrillar material. So she was admitted status post total abdominal hy sterectomy with lysis of severe pelvic and abdominal adhesions and vaginal vault suspension. She wa s started on vancomycin and Zosyn. The patient was tachycardic on admission. Her white count was 4 .0 on 12/14/2016, but 22.4 on 12/16/2016 and 21.4 on 12/17/2016, with H and H of 7.1 and 22, platele t count of 333,000. BUN and creatinine 24/1.71. Urine negative for nitrite and leukocyte esterase. The patient was started on clindamycin, Zosyn and gentamicin. The gentamicin has subsequently bee n discontinued. She had a chest x-ray which was negative and a CT scan of the abdomen and pelvis [facility] showed a large anterior pelvic abscess with second collection in the rectal sheath prior anterio r pelvis, recent hysterectomy with postsurgical abscess, question ruptured appendicitis. She had a second CT scan of the abdomen: Status post recent hysterectomy, small amounts of postoperative air, diffuse peritoneal fat infiltration, nonspecific irregular air-fluid density collection in the hyst erectomy bed. It is unclear if this represents absorbable surgical material, retained foreign body a nd/or abscess. A renal ultrasound: Complex fluid collection seen in the right upper quadrant near the edge of the liver. MICROBIOLOGY: She had coagulase-negative staph, gram-negative rods on 12/14/2016, mixed positive or ganisms were noted in the urine. Blood and urine were ordered on 12/16/2016. PAST MEDICAL HISTORY: Operations as outlined. FAMILY HISTORY: Noncontributory. PAST SURGICAL HISTORY: Status post exploratory laparotomy, total abdominal hysterectomy and a C-sec tion 4 years ago. SOCIAL HISTORY: Noncontributory. She does not smoke, drink or abuse drugs. ALLERGIES: NONE TO PENICILLIN, SULFA OR FOODS. MEDICATIONS: Per chart. REVIEW OF SYSTEMS: Noncontributory. PHYSICAL EXAMINATION: GENERAL: The patient is alert, obese, oriented. VITAL SIGNS: Stable. She is afebrile. SKIN: Without generalized rash. HEENT: Within normal limits. NECK: Supple. LYMPH NODES: None palpable. CHEST: Decreased breath sounds at the bases. HEART: Without murmur or gallop. ABDOMEN: Soft. Tenderness around the abdominal incision. EXTREMITIES: Without cyanosis, clubbing, or edema. RECTAL AND GENITAL: Deferred. NEUROLOGIC: No focal neurological abnormalities. PLAN: Referring back to the abdomen, the wound itself appears clean, but her blood cultures may or may not be contaminant, although the gram-negative rods are suggestive of it being a real. The CT s can of the abdomen and pelvis is confusing because there is an irregular air-fluid density collectio n in the hysterectomy bed, which may or may not be postoperative changes or may be abscess. If she persists in having a fever, which she is not at this point, we may want to do an indium labeled whit e cell study. For the time being, we will continue her on clindamycin and Zosyn. The gentamicin tran s been discontinued. I will dictate my findings to Dr. Kaminski and Dr. Man. Dictated By: LUIS DOMÍNGUEZ MD, JD/DARSHAN Conf#: [id number] DID#: [id number]
[2016-12-18 08:24] LABS: INR 1.16; PROTIME 14.8 Sec (12.2-14.2); PT RATIO 1.2
[2016-12-18 08:25] LABS: PARTIAL THROMBOPLASTIN TIME 30.3 Sec (25.0-35.0)
[2016-12-18] MEDS: FAMOTIDINE 20 MG TAB PO SCH (08:48)
[2016-12-18] MEDS: DOCUSATE SODIUM 100 MG CAP PO SCH ×3 (08:48→21:16)
[2016-12-18 11:57] LABS: BASOPHIL # 0.2 10^3/ul (0.0-0.1); EOSINOPHILS # 0.4 10^3/ul (0.0-0.5); LYMPHOCYTES # 0.9 10^3/ul (0.8-2.9); MONOCYTE # 0.7 10^3/ul (0.3-0.9); NEUTROPHIL # 14.4 10^3/ul (1.6-7.5)
--- NOTE | 2016-12-18 13:23 | PN ---
Date/Time of Note Date/Time of Note DATE: 12/18/16 TIME: 13:05 Assessment/Plan VTE Prophylaxis VTE Prophylaxis Intervention: SCD's Lines/Catheters IV C[facility]ter Type (from [facility]): Peripheral IV Urinary Cath still in place: No Assessment/Plan Assessment/Plan 41-year-old female with: 1. Sirs/sepsis, still tachycardic with significant leukocytosis with left shift and significant bandemia but afebrile, she likely has gram-negative selene sepsis Improved bandemia today and WBC still trending down Repeat blood cultures pending, Continue Zosyn and clindamycin per ID Remains hemodynamically stable and on telemetry. Continue normal saline at 125/hr Serial abdominal exam, Lactic acid wnl x 2 days. 2. Status post total abdominal hysterectomy, lysis of severe pelvic and abdominal adhesions, and vaginal vault suspension on 12/[address] Man, she is POD # 7 with CAT scan finding questioning possible abscess. Follow-up further infectious disease and Ship Pilot recommendations. 3. Anemia acute on chronic: S/p 2 units pRBC with Hb up to 9.4 today Monitor hemoglobin closely. 4. LUIS F in setting of sepsis. Renal US wnl Good UOP but creatinine still trending up Continue IVF Prophylaxis: SCDs for DVT prophylaxis, Pepcid for GI prophylaxis Disposition: Repeat blood cultures still pending, repeat UA negative and repeat urine culture pending, continue QAM labs. Appreciate ID recs and follow up Ship Pilot recommendations today Subjective 24 Hr Interval Summary Free Text/Dictation Patient feels better today S/p 2 units pRBC and afebrile WBC trending down and bandemia also improving Appreciate ID recs and awaiting Ship Pilot further recs Exam/Review of Systems Vital Signs Vitals Vital Signs Date Time Temp Pulse Resp B/P Pulse Ox O2 Delivery O2 Flow Rate FiO2 12/18/16 12:12 98.0 88 19 124/63 93 12/18/16 08:25 Nasal Cannula 2.0 Intake and Output 12/17/16 12/17/16 12/18/16 15:00 23:00 07:00 Intake Total 1650 ml 2250 ml Balance 1650 ml 2250 ml Exam Constitutional: alert, obese, oriented, well developed Respiratory: clear to auscultation, normal air movement Cardiovascular: nl pulses, regular rate and rhythm Gastrointestinal: non-tender, soft Musculoskeletal: nl extremities to inspection Extremities: normal pulses, other (no edema, clubbing or cyanosis ) Neurological: DIGITAL MEDIA STRATEGIST II-XII intact, nl mental status, nl speech, nl strength Results Result Diagram: 12/18/16 0648 12/18/16 0648 Results 24 hrs Laboratory Tests Test 12/18/16 06:48 White Blood Count 17.5 H Red Blood Count 3.21 #L Hemoglobin 9.4 #L Hematocrit 29.0 #L Mean Corpuscular Volume 90.3 Mean Corpuscular Hemoglobin 29.3 Mean Corpuscular Hemoglobin Concent 32.4 Red Cell Distribution Width 16.7 H Platelet Count 344 Mean Platelet Volume 10.7 H Neutrophils % 82.0 H Band Neutrophils % 6.0 H Lymphocytes % 5.0 L Monocytes % 4.0 Eosinophils % 2.0 Basophils % 1.0 Neutrophils # 14.4 H Lymphocytes # 0.9 Monocytes # 0.7 Eosinophils # 0.4 Basophils # 0.2 H Prothrombin Time 14.8 H Prothrombin Time Ratio 1.2 INR International Normalized Ratio 1.16 Activated Partial Thromboplast Time 30.3 Sodium Level 136 Potassium Level 3.4 L Chloride Level 99 Carbon Dioxide Level 24 Anion Gap 16 Blood Urea Nitrogen 25 H Creatinine 2.12 H Glucose Level 112 Lactic Acid Level 0.9 Calcium Level 7.8 L Phosphorus Level 5.9 H Magnesium Level 2.4 Total Bilirubin 1.0 Direct Bilirubin 0.50 #H Indirect Bilirubin 0.5 Aspartate Amino Transf (AST/SGOT) 55 H Alanine Aminotransferase (ALT/SGPT) 39 Alkaline Phosphatase 282 H Total Protein 5.5 L Albumin 2.4 L Globulin 3.10 Albumin/Globulin Ratio 0.77 Medications Medications Current Medications Oxycodone/ Acetaminophen (Percocet (5/ 325)) 1 tab Q4H PRN PO PAIN Last administered on 12/18/16 04:27; Admin Dose 1 TAB; Start 12/14/16 at 23:30 Oxycodone/ Acetaminophen (Percocet (5/ 325)) 2 tab Q3H PRN PO SEVERE PAIN Last administered on 12/18/16 08:48; Admin Dose 2 TAB; Start 12/14/16 at 23:30 Acetaminophen (Tylenol Tab) 650 mg Q6H PRN PO PAIN AND OR ELEVATED TEMP Last administered on 12/17/16 12:53; Admin Dose 650 MG; Start 12/14/16 at 23:30 Zolpidem Tartrate (Ambien) 10 mg HS PRN PO INSOMNIA Last administered on 00:31; Admin Dose 10 MG; Start 12/14/16 at 23:30 Ondansetron HCl (Zofran Inj) 4 mg Q4H PRN IV NAUSEA AND/OR VOMITING; Start 12/14 at 23:30 Diagnostic Test (Pha) (Accu-Chek) 1 ea 02 XX ; Start 12/16/16 at 02:00 Miscellaneous Information 1 ea NOTE XX ; Start 12/15/16 at 07:00 Glucose (Glutose) 15 gm Q15M PRN PO DECREASED GLUCOSE; Start 12/15/16 at 07:00 Glucose (Glutose) 22.5 gm Q15M PRN PO DECREASED GLUCOSE; Start 12/15/16 at 07:00 Dextrose (D50w Syringe) 25 ml Q15M PRN IV DECREASED GLUCOSE; Start 12/15/16 at 07:00 Dextrose (D50w Syringe) 50 ml Q15M PRN IV DECREASED GLUCOSE; Start 12/15/16 at 07:00 Glucagon (Glucagen) 1 mg Q15M PRN IM DECREASED GLUCOSE; Start 12/15/16 at 07:00 Glucose (Glutose) 15 gm Q15M PRN BUCCAL DECREASED GLUCOSE; Start 12/15/16 at 07: 00 Docusate Sodium 100 mg 100 mg TID PO Last administered on 12/18/16 08:48; Admin Dose 100 MG; Start 12/15/16 at 13:00 Clindamycin HCl/ Dextrose 50 ml @ 50 mls/hr Q8 IVPB Last administered on 05:58; Admin Dose 50 MLS/HR; Start 12/16/16 at 14:00 Sodium Chloride 1,000 ml @ 125 mls/hr Q8H IV Last administered on 12/18/16 04: 17; Admin Dose 125 MLS/HR; Start 12/16/16 at 17:00 Piperacillin Sod/ Tazobactam Sod (Zosyn 2.25gm/ 50ml (Pmx)) 50 ml @ 100 mls/hr Q8 IVPB Last administered on 12/18/16 05:25; Admin Dose 100 MLS/HR; Start at 14:00 Famotidine (Pepcid) 20 mg DAILY PO Last administered on 12/18/16t 08:48; Admin Dose 20 MG; Start 12/18/16 at 09:00 MEERA PERAZA Dec 18, 2016 13:15
[2016-12-18] MEDS ORDERED: POTASSIUM CHLORIDE (SR) 20 MEQ TAB PO STA (14:14)
[2016-12-18] MEDS ORDERED: SOD CHLORIDE 0.9% IVPB SCH (16:00)
[2016-12-18] MEDS ORDERED: GENTAMICIN IVPB SCH (16:00)
--- NOTE | 2016-12-18 16:03 | PN ---
DATE: 12/18/2016 SUBJECTIVE: No events overnight. The patient is awake, feels better. Looks comfortable, no fevers . LABORATORY DATA: White blood cell count tracing down today to 17.5, neutrophils 82, bands 6, lymphs , 5 monocytes 4. BUN 25, creatinine 2.12. MICROBIOLOGY: Blood culture growing coagulase-negative staph species and Bacteroides fragilis. Rep eat blood culture is negative. Urine culture negative. ANTIMICROBIALS: The patient is on: 1. Zosyn. 2. Clindamycin. PHYSICAL EXAMINATION: GENERAL: This is a morbidly obese, well-developed, middle-aged woman who is awake, in no d istress. HEENT: Head atraumatic, normocephalic. Sclerae anicteric. Buccal mucosa dry. NECK: Supple, trachea midline. CHEST: Rise symmetrical. Breath sounds diminished to bases. HEART: S1, S2. ABDOMEN: Soft, bowel sounds present. EXTREMITIES: No cyanosis. ASSESSMENT: 1. Systemic inflammatory response syndrome with fevers and leukocytosis, improving. 2. Status post total abdominal hysterectomy with a questionable intra-abdominal abscess as per CT o f the abdomen and pelvis. 3. Bacteremia. PLAN: The patient remains stable. We are going to discontinue clindamycin. Keep her on Zosyn. Mo nitor blood count closely and follow surgical recommendations. We will monitor her renal function a s well as patient has worsening creatinine this morning. Will check postvoid residuals. Dictated By: JOSE TRUONG IT APPLICATIONS ANALYST for LUIS FORREST/DARSHAN Conf#: [id number] DID#: [id number]
[2016-12-18] MEDS ORDERED: MAGNESIUM HYDROXIDE 30ML CUP PO PRN (19:30)
[2016-12-19] VITALS (12 sets, daily range): BP systolic 116–136; BP diastolic 64–79; PULSE 80–100; RESP 16–19
[2016-12-19] MEDS: OXYCODONE/ACETAMINOPHEN (5/325) TAB PO PRN ×7 (01:28→21:10)
[2016-12-19] MEDS: SOD CHLORIDE 0.9% 1,000 ML IV SCH ×3 (01:38→23:14)
[2016-12-19] MEDS: ACCU-CHEK XX SCH (02:44)
[2016-12-19] MEDS: PIPER-TAZO 2.25 GM (PMX) 50 ML IVPB SCH ×3 (05:06→21:10)
[2016-12-19 08:18] LABS: ADD SCAN DIFF NO
[2016-12-19 08:27] LABS: HEMATOCRIT 30.2 % (37.0-47.0); HEMOGLOBIN 10.3 g/dl (12.0-16.0); MEAN CORPUSCULAR HGB CONC 34.1 g/dl (32.0-37.0); MEAN PLATELET VOLUME 10.6 fl (7.4-10.4); PLATELET COUNT 441 10^3/UL (140-415); RED BLOOD COUNT 3.43 10^6/ul (4.20-5.40); RED CELL DISTRIBUTION WIDTH 16.4 % (11.5-14.5); WHITE BLOOD COUNT 18.7 10^3/ul (4.8-10.8)
[2016-12-19 08:47] LABS: MAGNESIUM 2.2 mg/dl (1.7-2.5); PHOSPHORUS 5.6 mg/dl (2.5-4.9)
[2016-12-19 08:49] LABS: ALBUMIN 2.5 g/dl (3.3-4.9); ALBUMIN/GLOBULIN RATIO 0.75; BILIRUBIN,INDIRECT 0.3 mg/dl (0-1.1); BILIRUBIN,TOTAL 0.3 mg/dl (0.2-1.3); CALCIUM 7.7 mg/dl (8.4-10.2); CREATININE 1.85 mg/dl (0.44-1.00); POTASSIUM 3.7 mmol/L (3.5-5.1); TOTAL PROTEIN 5.8 g/dl (6.1-8.1)
[2016-12-19] MEDS: FAMOTIDINE 20 MG TAB PO SCH (08:53)
[2016-12-19] MEDS: DOCUSATE SODIUM 100 MG CAP PO SCH ×3 (08:53→21:09)
--- NOTE | 2016-12-19 12:04 | PN ---
Date/Time of Note Date/Time of Note DATE: 12/19/16 TIME: 11:49 Assessment/Plan VTE Prophylaxis VTE Prophylaxis Intervention: SCD's Lines/Catheters IV C[facility]ter Type (from [facility]): Peripheral IV Urinary Cath still in place: No Assessment/Plan Assessment/Plan 41-year-old female with: 1. Sirs/sepsis, tachycardia resolved Bandemia seems to be resolved today but white blood cell count still at 18,000. Repeat blood and urine cultures NGTD, Continue Zosyn per ID, since WBC up, discussed with ID, Repeat chest x-ray and tagged white blood cell study pending , may need to repeat CAT scan of the abdomen and pelvis Remains hemodynamically stable and on telemetry. Continue normal saline at 100/hr Lactic acid wnl x 2 days. 2. Status post total abdominal hysterectomy, lysis of severe pelvic and abdominal adhesions, and vaginal vault suspension on 12/[address] Man, she is POD # 8 with CAT scan finding questioning possible abscess. Follow-up further infectious disease and Chemical Pathologist recommendations. Given concern regarding fluid collection in hysterectomy bed seen on CAT scan, tagged white blood cell studies pending vs CT abdo/pelvis if needed, discussed with infectious disease. Patient currently on Zosyn 3. Anemia acute on chronic: S/p 2 units pRBC with Hb up and stable Monitor hemoglobin closely. 4. LUIS F in setting of sepsis. Renal US wnl and creatinine improving. Continue IVF Prophylaxis: SCDs for DVT prophylaxis, Pepcid for GI prophylaxis Disposition: Repeat cultures NGTD, continue QAM labs. Chest x-ray and tagged white blood cell study pending, appreciate ID recs and follow up Chemical Pathologist recommendations. CT abdomen pelvis if needed Subjective 24 Hr Interval Summary Free Text/Dictation Patient remains hemodynamically stable, however still has a significant leukocytosis and thrombocytosis, repeat blood cultures and urine cultures are no growth to date, still concerned regarding abdominal fluid collection around the hysterectomy bed, tagged white blood cell study pending. Chest x-ray also pending, patient currently on Zosyn per infectious disease Exam/Review of Systems Vital Signs Vitals Vital Signs Date Time Temp Pulse Resp B/P Pulse Ox O2 Delivery O2 Flow Rate FiO2 12/19/16 08:54 94 12/19/16 08:20 Nasal Cannula 2.0 12/19/16 07:23 98.0 16 130/73 94 Intake and Output 12/18/16 12/18/16 12/19/16 15:00 23:00 07:00 Intake Total 1250 ml 1700 ml Balance 1250 ml 1700 ml Exam Constitutional: alert, oriented, well developed Respiratory: clear to auscultation, normal air movement Cardiovascular: nl pulses, regular rate and rhythm Gastrointestinal: soft Musculoskeletal: nl extremities to inspection Extremities: normal pulses, other (no edema, clubbing or cyanosis ) Neurological: [employer] II-XII intact, nl mental status, nl speech, nl strength Results Result Diagram: 12/19/16 0710 12/19/16 0710 Results 24 hrs Laboratory Tests Test 12/19/16 02:18 12/19/16 07:10 Bedside Glucose 241 H White Blood Count 18.7 H Red Blood Count 3.43 L Hemoglobin 10.3 L Hematocrit 30.2 L Mean Corpuscular Volume 88.0 Mean Corpuscular Hemoglobin 30.0 Mean Corpuscular Hemoglobin Concent 34.1 Red Cell Distribution Width 16.4 H Platelet Count 441 #H Mean Platelet Volume 10.6 H Neutrophils % Lymphocytes % Monocytes % Neutrophils # Lymphocytes # Monocytes # Sodium Level 133 L Potassium Level 3.7 Chloride Level 100 Carbon Dioxide Level 24 Anion Gap 13 Blood Urea Nitrogen 22 H Creatinine 1.85 H Glucose Level 109 Lactic Acid Level 0.8 Calcium Level 7.7 L Phosphorus Level 5.6 H Magnesium Level 2.2 Total Bilirubin 0.3 Direct Bilirubin 0.00 # Indirect Bilirubin 0.3 Aspartate Amino Transf (AST/SGOT) 61 H Alanine Aminotransferase (ALT/SGPT) 43 Alkaline Phosphatase 316 H Total Protein 5.8 L Albumin 2.5 L Globulin 3.30 H Albumin/Globulin Ratio 0.75 Medications Medications Current Medications Oxycodone/ Acetaminophen (Percocet (5/ 325)) 1 tab Q4H PRN PO PAIN Last administered on 12/19/16 05:06; Admin Dose 1 TAB; Start 12/14/16 at 23:30 Oxycodone/ Acetaminophen (Percocet (5/ 325)) 2 tab Q3H PRN PO SEVERE PAIN Last administered on 12/19/16 08:54; Admin Dose 2 TAB; Start 12/14/16 at 23:30 Acetaminophen (Tylenol Tab) 650 mg Q6H PRN PO PAIN AND OR ELEVATED TEMP Last administered on 12/17/16 12:53; Admin Dose 650 MG; Start 12/14/16 at 23:30 Zolpidem Tartrate (Ambien) 10 mg HS PRN PO INSOMNIA Last administered on 00:31; Admin Dose 10 MG; Start 12/14/16 at 23:30 Ondansetron HCl (Zofran Inj) 4 mg Q4H PRN IV NAUSEA AND/OR VOMITING; Start 12/14 at 23:30 Diagnostic Test (Pha) (Accu-Chek) 1 ea 02 XX Last administered on 12/19/16 02: 44; Admin Dose 1 EA; Start 12/16/16 at 02:00 Miscellaneous Information 1 ea NOTE XX ; Start 12/15/16 at 07:00 Glucose (Glutose) 15 gm Q15M PRN PO DECREASED GLUCOSE; Start 12/15/16 at 07:00 Glucose (Glutose) 22.5 gm Q15M PRN PO DECREASED GLUCOSE; Start 12/15/16 at 07:00 Dextrose (D50w Syringe) 25 ml Q15M PRN IV DECREASED GLUCOSE; Start 12/15/16 at 07:00 Dextrose (D50w Syringe) 50 ml Q15M PRN IV DECREASED GLUCOSE; Start 12/15/16 at 07:00 Glucagon (Glucagen) 1 mg Q15M PRN IM DECREASED GLUCOSE; Start 12/15/16 at 07:00 Glucose (Glutose) 15 gm Q15M PRN BUCCAL DECREASED GLUCOSE; Start 12/15/16 at 07: 00 Docusate Sodium 100 mg 100 mg TID PO Last administered on 12/19/16 08:53; Admin Dose 100 MG; Start 12/15/16 at 13:00 Sodium Chloride 1,000 ml @ 125 mls/hr Q8H IV Last administered on 12/19/16 08: 54; Admin Dose 125 MLS/HR; Start 12/16/16 at 17:00 Piperacillin Sod/ Tazobactam Sod (Zosyn 2.25gm/ 50ml (Pmx)) 50 ml @ 100 mls/hr Q8 IVPB Last administered on 12/19/16 05:06; Admin Dose 100 MLS/HR; Start at 14:00 Famotidine (Pepcid) 20 mg DAILY PO Last administered on 12/19/16 08:53; Admin Dose 20 MG; Start 12/18/16 at 09:00 Magnesium Hydroxide (Milk Of Mag) 30 ml DAILY PRN PO CONSTIPATION Last administered on 12/18/16 21:17; Admin Dose 30 ML; Start 12/18/16 at 19:30 MEERA PERAZA Dec 19, 2016 12:03
[2016-12-19 13:18] LABS: EOSINOPHILS # 0.2 10^3/ul (0.0-0.5); LYMPHOCYTES # 0.7 10^3/ul (0.8-2.9); MONOCYTE # 0.9 10^3/ul (0.3-0.9); MYELOCYTES # 0.4; NEUTROPHIL # 16.3 10^3/ul (1.6-7.5)
--- NOTE | 2016-12-19 15:24 | CONS ---
Date/Time of Note Date/Time of Note DATE: 12/19/16 TIME: 15:20 Assessment/Plan Assessment/Plan Chief Complaint/Hosp Course SUBJECTIVE: No events overnight. The patient is sleeping, no fevers, nad MICROBIOLOGY: Blood culture growing coagulase-negative staph species and Bacteroides fragilis. Repeat blood culture is negative. Urine culture negative. ANTIMICROBIALS: Zosyn. PHYSICAL EXAMINATION: GENERAL: This is a morbidly obese, well-developed, middle-aged woman who is awake, in no distress. HEENT: Head atraumatic, normocephalic. Sclerae anicteric. Buccal mucosa dry. NECK: Supple, trachea midline. CHEST: Rise symmetrical. Breath sounds diminished to bases. HEART: S1, S2. ABDOMEN: Soft, bowel sounds present. EXTREMITIES: No cyanosis. ASSESSMENT: 1. Systemic inflammatory response syndrome with persistent leukocytosis 2. Status post total abdominal hysterectomy with a questionable intra- abdominal abscess as per CT of the abdomen and pelvis vs fibrillar applied during surgery. 3. Bacteremia. PLAN: Clinically unchanged, leukocytosis persists, will order WBC scan, check cxr, continue abx, will f/u SOCIAL AND HUMAN SERVICES ASSISTANT rec-s. DW Dr Kaminski Problems: Consultation Date/Type/Reason Admit Date/Time Dec 14, 2016 at 19:07 Initial Consult Date 12/16/16 Type of Consultation: ID Referring Provider: NAVEED CLARKE MD Exam/Review of Systems Vital Signs Vitals Vital Signs Date Time Temp Pulse Resp B/P Pulse Ox O2 Delivery O2 Flow Rate FiO2 12/19/16 12:28 80 12/19/16 11:45 97.8 18 129/68 99 12/19/16 08:20 Nasal Cannula 2.0 Intake and Output 12/18/16 12/18/16 12/19/16 15:00 23:00 07:00 Intake Total 1250 ml 1700 ml Balance 1250 ml 1700 ml Results Result Diagram: 12/19/16 0710 12/19/16 0710 Results 24 hrs Laboratory Tests Test 12/19/16 02:18 12/19/16 07:10 Bedside Glucose 241 H White Blood Count 18.7 H Red Blood Count 3.43 L Hemoglobin 10.3 L Hematocrit 30.2 L Mean Corpuscular Volume 88.0 Mean Corpuscular Hemoglobin 30.0 Mean Corpuscular Hemoglobin Concent 34.1 Red Cell Distribution Width 16.4 H Platelet Count 441 #H Mean Platelet Volume 10.6 H Neutrophils % 87.0 H Lymphocytes % 4.0 L Monocytes % 5.0 Eosinophils % 1.0 Metamyelocytes % 1.0 H Myelocytes % 2.0 H Neutrophils # 16.3 H Lymphocytes # 0.7 L Monocytes # 0.9 Eosinophils # 0.2 Metamyelocytes # 0.2 Myelocytes # 0.4 Differential Comment MANUAL DIFF Large Platelets OCCASIONAL Sodium Level 133 L Potassium Level 3.7 Chloride Level 100 Carbon Dioxide Level 24 Anion Gap 13 Blood Urea Nitrogen 22 H Creatinine 1.85 H Glucose Level 109 Lactic Acid Level 0.8 Calcium Level 7.7 L Phosphorus Level 5.6 H Magnesium Level 2.2 Total Bilirubin 0.3 Direct Bilirubin 0.00 # Indirect Bilirubin 0.3 Aspartate Amino Transf (AST/SGOT) 61 H Alanine Aminotransferase (ALT/SGPT) 43 Alkaline Phosphatase 316 H Total Protein 5.8 L Albumin 2.5 L Globulin 3.30 H Albumin/Globulin Ratio 0.75 Medications Medications Current Medications Oxycodone/ Acetaminophen (Percocet (5/ 325)) 1 tab Q4H PRN PO PAIN Last administered on 12/19/16 13:27; Admin Dose 1 TAB; Start 12/14/16 at 23:30 Oxycodone/ Acetaminophen (Percocet (5/ 325)) 2 tab Q3H PRN PO SEVERE PAIN Last administered on 12/19/16 08:54; Admin Dose 2 TAB; Start 12/14/16 at 23:30 Acetaminophen (Tylenol Tab) 650 mg Q6H PRN PO PAIN AND OR ELEVATED TEMP Last administered on 12/17/16 12:53; Admin Dose 650 MG; Start 12/14/16 at 23:30 Zolpidem Tartrate (Ambien) 10 mg HS PRN PO INSOMNIA Last administered on 00:31; Admin Dose 10 MG; Start 12/14/16 at 23:30 Ondansetron HCl (Zofran Inj) 4 mg Q4H PRN IV NAUSEA AND/OR VOMITING; Start 12/14 at 23:30 Diagnostic Test (Pha) (Accu-Chek) 1 ea 02 XX Last administered on 12/19/16 02: 44; Admin Dose 1 EA; Start 12/16/16 at 02:00 Miscellaneous Information 1 ea NOTE XX ; Start 12/15/16 at 07:00 Glucose (Glutose) 15 gm Q15M PRN PO DECREASED GLUCOSE; Start 12/15/16 at 07:00 Glucose (Glutose) 22.5 gm Q15M PRN PO DECREASED GLUCOSE; Start 12/15/16 at 07:00 Dextrose (D50w Syringe) 25 ml Q15M PRN IV DECREASED GLUCOSE; Start 12/15/16 at 07:00 Dextrose (D50w Syringe) 50 ml Q15M PRN IV DECREASED GLUCOSE; Start 12/15/16 at 07:00 Glucagon (Glucagen) 1 mg Q15M PRN IM DECREASED GLUCOSE; Start 12/15/16 at 07:00 Glucose (Glutose) 15 gm Q15M PRN BUCCAL DECREASED GLUCOSE; Start 12/15/16 at 07: 00 Docusate Sodium 100 mg 100 mg TID PO Last administered on 12/19/16 13:27; Admin Dose 100 MG; Start 12/15/16 at 13:00 Sodium Chloride 1,000 ml @ 100 mls/hr Q10H IV Last administered on 12/19/16 08 :54; Admin Dose 125 MLS/HR; Start 12/16/16 at 17:00 Piperacillin Sod/ Tazobactam Sod (Zosyn 2.25gm/ 50ml (Pmx)) 50 ml @ 100 mls/hr Q8 IVPB Last administered on 12/19/16 13:27; Admin Dose 100 MLS/HR; Start at 14:00 Famotidine (Pepcid) 20 mg DAILY PO Last administered on 12/19/16 08:53; Admin Dose 20 MG; Start 12/18/16 at 09:00 Magnesium Hydroxide (Milk Of Mag) 30 ml DAILY PRN PO CONSTIPATION Last administered on 12/18/16 21:17; Admin Dose 30 ML; Start 12/18/16 at 19:30 JOSE TRUONG NP Dec 19, 2016 15:24
--- NOTE | 2016-12-19 16:24 | RADRPT ---
PROCEDURE: XR Chest. CLINICAL INDICATION: Shortness of breath. TECHNIQUE: Single frontal view. COMPARISON: 12/14/2016. FINDINGS: There is atelectasis at both lung bases, worse than seen previously. The lungs are otherwise clear. The heart is mildly enlarged. There are small bilateral pleural effusion. There is no pneumothorax. IMPRESSION: 1. Worse appearance of the lung bases. 2. Cardiomegaly. 3. Small bilateral pleural effusions. RPTAT: QQ .Richie Payne MD, MD Date Time Electronically viewed and signed by .Richie Payne MD, MD on 12/19/2016 16:24 .R/
--- NOTE | 2016-12-19 19:37 | QN ---
Documentation Comment I had a discussion about patient current clinical status with Dr. Man, we are awaiting tagged white blood cell study however radiology/nuclear medicine is informing us that they will not do it until Thursday due to lack of the contrast. Therefore I am ordering a CAT scan of the abdomen and pelvis with oral contrast due to the fact that the patient cannot have IV contrast given her current renal function. If the CAT scan shows persistent fluid collection suspicious for abscesses and if there are drainable by IR the patient will need IR drainage of the abscesses if possible and if needed. Repeat labs are pending for the morning, if her white count keeps climbing up, she definitely will need drainage of those abscesses if it seems that they are not resolving or worsening. If it is not drainable by IR, the patient may actually need surgical intervention since we do not have any other sources of infection so far. Dr. Man is agreeable with the plan of care. MEERA PERAZA Dec 19, 2016 19:37
[2016-12-19] MEDS ORDERED: BARIUM SULF 2% 450 ML BTL (BERRY SMOOTHIE) PO ONE (20:00)
[2016-12-19] MEDS ORDERED: IOHEXOL 300MG/ML 30 ML BTL ONE (20:27)
[2016-12-20] VITALS (12 sets, daily range): BP systolic 133–155; BP diastolic 70–80; PULSE 83–90; RESP 18–20
[2016-12-20] MEDS: OXYCODONE/ACETAMINOPHEN (5/325) TAB PO PRN ×6 (01:13→21:27)
[2016-12-20] MEDS: ACCU-CHEK XX SCH (01:17)
[2016-12-20] MEDS: PIPER-TAZO 2.25 GM (PMX) 50 ML IVPB SCH ×3 (05:38→23:05)
--- NOTE | 2016-12-20 07:47 | RADRPT ---
PROCEDURE: CT abdomen and pelvis without contrast. CLINICAL INDICATION: Abdominal pain. Follow-up of fluid collections TECHNIQUE: CT scan of the abdomen and pelvis without contrast was performed on a multi-slice CT [facility] [place] . Oral contrast was also administered. Sagittal and coronal reformatted images were obtaine d from the axial source images. DLP 1572.2 mGycm. CTDIvol 23.6 mGy COMPARISON: 12/14/2016 FINDINGS: Layering bilateral small pleural effusions are seen with partial atelectasis of the bilateral lower lobes. There is cardiomegaly present and these findings of increased from prior study. There is li mited evaluation of the solid viscera from the lack of IV contrast. Status post hysterectomy. There is an air, fluid and debris structures seen within the low pelvis a nd measures up to 12 x 8 cm and previously measured up to 12 x 12 cm and is slightly diminished in s ize with a more rise wall. There is fat stranding and fluid seen within the anterior abdominal wall with mild subcutaneous fat stranding seen as well. No pelvic mesenteric fat stranding is also agai n seen. There is a subcapsular fluid collection seen along the inferior margin of the right hepatic lobe that measures up to 7.5 x 4.2 cm on series 3, image 80 to assess increased in size from prior exam with there had been a amorphous hypodensity measuring approximately 5.8 x 2.6 cm. There is a contrast of fecal distended colon seen without obstruction. There is mild narrowing of t he sigmoid colon secondary to mass effect in the pelvic fluid collection. There is no extravasation of oral contrast into the peritoneum. The appendix is partially visualized and within normal limit s. There is trace free fluid in the pelvis. The kidneys are symmetric bilaterally with no evidence of renal or ureteral calculi. There is no hy dronephrosis or perinephric stranding. There is normal density of the liver with no gross focal lesion or biliary ductal dilatation. The gallbladder is unremarkable without inflammation. The spleen is unremarkable without mass. The adrenal glands are within normal limits without mass. The pancreas is unremarkable without focal lesion or surrounding inflammatory changes. There are no enlarged lymph nodes. Anasarca seen involving the soft tissues of the abdomen and pelvis. The aorta is unremarkable and there is no acute osseous abnormality. Degenerative changes are seen w ithin the lumbar spine. IMPRESSION: Surgical changes of the pelvis are seen with an air, fluid and debris filled structure in the low pe lvic cul-de-sac which is slightly diminished in size from prior exam and currently measures up to 12 x 8 cm. Continued inflammation is seen in the low anterior along with mild subcutaneous fat strand ing of the anterior pelvic wall was subcutaneous emphysema within the musculature related to prior s urgery. There is second sub hepatic fluid collection has slightly increased in size from prior study. There is a fecal filled colon without obstruction or appendicitis. There is some narrowing of the s igmoid colon secondary to mass effect in the pelvic fluid collection. Bilateral small layering effusions have increased in size since the prior study along with mild new cardiomegaly. Mild anasarca of the soft tissues is also present. RPTAT: AA .Kyleigh Irby MD, Date Time Electronically viewed and signed by .Kyleigh Irby MD, on 12/20/2016 07:46 .J/
[2016-12-20 07:53] LABS: ADD SCAN DIFF NO; HEMATOCRIT 29.4 % (37.0-47.0); HEMOGLOBIN 9.7 g/dl (12.0-16.0); MEAN CORPUSCULAR HEMOGLOBIN 29.4 pg (29.0-33.0); MEAN CORPUSCULAR VOLUME 89.1 fl (82.0-101.0); MEAN PLATELET VOLUME 10.2 fl (7.4-10.4); PLATELET COUNT 453 10^3/UL (140-415); RED CELL DISTRIBUTION WIDTH 16.3 % (11.5-14.5)
[2016-12-20 07:56] LABS: ALBUMIN 2.2 g/dl (3.3-4.9)
[2016-12-20 07:57] LABS: POTASSIUM 3.2 mmol/L (3.5-5.1)
[2016-12-20 07:59] LABS: BILIRUBIN,INDIRECT 0.4 mg/dl (0-1.1); BILIRUBIN,TOTAL 0.4 mg/dl (0.2-1.3); CREATININE 1.76 mg/dl (0.44-1.00)
[2016-12-20 08:00] LABS: ALBUMIN/GLOBULIN RATIO 0.66; CALCIUM 7.9 mg/dl (8.4-10.2); TOTAL PROTEIN 5.5 g/dl (6.1-8.1)
[2016-12-20 08:02] LABS: MAGNESIUM 1.9 mg/dl (1.7-2.5)
[2016-12-20] MEDS: FAMOTIDINE 20 MG TAB PO SCH (08:20)
[2016-12-20] MEDS: DOCUSATE SODIUM 100 MG CAP PO SCH ×3 (08:20→21:25)
[2016-12-20 08:36] LABS: INR 1.07; PROTIME 13.9 Sec (12.2-14.2); PT RATIO 1.1
[2016-12-20 08:37] LABS: PARTIAL THROMBOPLASTIN TIME 30.6 Sec (25.0-35.0)
[2016-12-20 11:42] LABS: MONOCYTE # 0.2 10^3/ul (0.3-0.9); NEUTROPHIL # 16.7 10^3/ul (1.6-7.5)
--- NOTE | 2016-12-20 12:31 | PN ---
Date/Time of Note Date/Time of Note DATE: 12/20/16 TIME: 12:17 Assessment/Plan VTE Prophylaxis VTE Prophylaxis Intervention: SCD's Lines/Catheters IV C[facility]ter Type (from [facility]): Peripheral IV Urinary Cath still in place: No Assessment/Plan Assessment/Plan [facility] 1. Hospital day 4 for this 41-year-old woman who is s/p total abdominal hysterectomy, lysis of adhesions, and bladder suspension, presenting with SIRS/ sepsis, tachycardia, bandemia, leukocytosis, and a blood culture positive for bacteroides and coagulase-negative Staph. She is now POD 9 (12/10/[address] Man). Continued WBC elevation at 19k/ul, but no fever. Continued abdominal pain, particularly RUQ. CT this morning showed a complex 8x12cm fluid collection in the pelvis, and a fluid pocket under the liver. * Spoke with Dr. Payne in Interventional Radiology about attempted drainage today. * Patient is NPO * Continue IV fluids with normal saline at 100cc/hr * Day 4 Zosyn 2. Hypokalemia (3.2 today), with acute kidney injury secondary to sepsis. Renal US wnl and creatinine improving from 2.12 to 1.76 today. * Potassium replacement PO after her procedure. 3. Acute on chronic anemia, s/p 2 units pRBC. Hemoglobin stable now at 9.7g/ dl. * Follow H/H 4. Prophylaxis: SCDs for DVT prophylaxis, Pepcid for GI prophylaxis 5. Disposition: IR procedure this afternoon. Continued IV antibiotics. Satya Emmanuel MD PhD [phone] Subjective 24 Hr Interval Summary Free Text/Dictation Two sisters, , and two of her 5 children at bedside. Complaining of pain in the RUQ. Hungry, but not eating much. Had a normal bowel movement a few minutes ago. Exam/Review of Systems Vital Signs Vitals Vital Signs Date Time Temp Pulse Resp B/P Pulse Ox O2 Delivery O2 Flow Rate FiO2 12/20/16 11:41 97.6 87 19 134/73 93 12/20/16 06:30 2.0 12/19/16 08:20 Nasal Cannula Intake and Output 12/19/16 12/19/16 12/20/16 15:00 23:00 07:00 Intake Total 50 ml 1240 ml 2790 ml Balance 50 ml 1240 ml 2790 ml Results Result Diagram: 12/20/16 0500 12/20/16 0657 Results 24 hrs Laboratory Tests Test 12/20/16 05:00 12/20/16 06:57 White Blood Count 19.0 H Red Blood Count 3.30 L Hemoglobin 9.7 L Hematocrit 29.4 L Mean Corpuscular Volume 89.1 Mean Corpuscular Hemoglobin 29.4 Mean Corpuscular Hemoglobin Concent 33.0 Red Cell Distribution Width 16.3 H Platelet Count 453 H Mean Platelet Volume 10.2 Neutrophils % 88.0 H Band Neutrophils % 4.0 Lymphocytes % 5.0 L Monocytes % 1.0 Neutrophils # 16.7 H Lymphocytes # 1.0 Monocytes # 0.2 L Prothrombin Time 13.9 Prothrombin Time Ratio 1.1 INR International Normalized Ratio 1.07 Activated Partial Thromboplast Time 30.6 Sodium Level 136 Potassium Level 3.2 L Chloride Level 100 Carbon Dioxide Level 25 Anion Gap 14 Blood Urea Nitrogen 17 Creatinine 1.76 H Glucose Level 110 Calcium Level 7.9 L Phosphorus Level 6.0 H Magnesium Level 1.9 Total Bilirubin 0.4 Direct Bilirubin 0.00 Indirect Bilirubin 0.4 Aspartate Amino Transf (AST/SGOT) 64 H Alanine Aminotransferase (ALT/SGPT) 53 Alkaline Phosphatase 286 H Total Protein 5.5 L Albumin 2.2 L Globulin 3.30 H Albumin/Globulin Ratio 0.66 Medications Medications Current Medications Oxycodone/ Acetaminophen (Percocet (5/ 325)) 1 tab Q4H PRN PO PAIN Last administered on 12/20/16 09:45; Admin Dose 1 TAB; Start 12/14/16 at 23:30 Oxycodone/ Acetaminophen (Percocet (5/ 325)) 2 tab Q3H PRN PO SEVERE PAIN Last administered on 12/20/16 01:13; Admin Dose 2 TAB; Start 12/14/16 at 23:30 Acetaminophen (Tylenol Tab) 650 mg Q6H PRN PO PAIN AND OR ELEVATED TEMP Last administered on 12/17/16 12:53; Admin Dose 650 MG; Start 12/14/16 at 23:30 Zolpidem Tartrate (Ambien) 10 mg HS PRN PO INSOMNIA Last administered on 00:31; Admin Dose 10 MG; Start 12/14/16 at 23:30 Ondansetron HCl (Zofran Inj) 4 mg Q4H PRN IV NAUSEA AND/OR VOMITING; Start 12/14 at 23:30 Diagnostic Test (Pha) (Accu-Chek) 1 ea 02 XX Last administered on 12/19/16 02: 44; Admin Dose 1 EA; Start 12/16/16 at 02:00 Miscellaneous Information 1 ea NOTE XX ; Start 12/15/16 at 07:00 Glucose (Glutose) 15 gm Q15M PRN PO DECREASED GLUCOSE; Start 12/15/16 at 07:00 Glucose (Glutose) 22.5 gm Q15M PRN PO DECREASED GLUCOSE; Start 12/15/16 at 07:00 Dextrose (D50w Syringe) 25 ml Q15M PRN IV DECREASED GLUCOSE; Start 12/15/16 at 07:00 Dextrose (D50w Syringe) 50 ml Q15M PRN IV DECREASED GLUCOSE; Start 12/15/16 at 07:00 Glucagon (Glucagen) 1 mg Q15M PRN IM DECREASED GLUCOSE; Start 12/15/16 at 07:00 Glucose (Glutose) 15 gm Q15M PRN BUCCAL DECREASED GLUCOSE; Start 12/15/16 at 07: 00 Docusate Sodium 100 mg 100 mg TID PO Last administered on 12/20/16 08:20; Admin Dose 100 MG; Start 12/15/16 at 13:00 Sodium Chloride 1,000 ml @ 75 mls/hr [id number] IV Last administered on 12/19/16 23:14; Admin Dose 75 MLS/HR; Start 12/16/16 at 17:00 Piperacillin Sod/ Tazobactam Sod (Zosyn 2.25gm/ 50ml (Pmx)) 50 ml @ 100 mls/hr Q8 IVPB Last administered on 12/20/16 05:38; Admin Dose 100 MLS/HR; Start at 14:00 Famotidine (Pepcid) 20 mg DAILY PO Last administered on 12/20/16 08:20; Admin Dose 20 MG; Start 12/18/16 at 09:00 Magnesium Hydroxide (Milk Of Mag) 30 ml DAILY PRN PO CONSTIPATION Last administered on 12/18/16 21:17; Admin Dose 30 ML; Start 12/18/16 at 19:30 BOAZ EMMANUEL M.D. Dec 20, 2016 12:27
[2016-12-20] MEDS ORDERED: POTASSIUM CHLORIDE (SR) 20 MEQ TAB PO STA (14:14)
[2016-12-20] MEDS: SOD CHLORIDE 0.9% 1,000 ML IV SCH (14:31)
--- NOTE | 2016-12-20 16:01 | CONS ---
Date/Time of Note Date/Time of Note DATE: 12/20/16 TIME: 16:01 Assessment/Plan Assessment/Plan Chief Complaint/Hosp Course ID PROGRESS NOTE CURRENT ABX=> Zosyn 24H INTERVAL SUMMARY * Resting in bed with room filled with family members, requesting pain medications Q3H currently receiving Q4Hrs -- advised her increasing pain meds not in best interest, encourage OOB, ambulation, increase pain meds high risk of ileus, lethargy, immobility -- once up and moving the pain will get better - - bowel filled w/stool == pain meds cause constipation * BCx (+) COAGULASE NEGATIVE STAPH + BACTEROIDES FRAGILIS * CT ABD/PELVIS TODAY IMPRESSION: * Surgical changes of the pelvis are seen with an air, fluid and debris filled structure in the low pelvic cul-de-sac which is slightly diminished in size from prior exam and currently measures up to 12 x 8 cm. Continued inflammation is seen in the low anterior along with mild subcutaneous fat stranding of the anterior pelvic wall was subcutaneous emphysema within the musculature related to prior surgery. * There is second sub hepatic fluid collection has slightly increased in size from prior study. * There is a fecal filled colon without obstruction or appendicitis. There is some narrowing of the sigmoid colon secondary to mass effect in the pelvic fluid collection. * Bilateral small layering effusions have increased in size since the prior study along with mild new cardiomegaly. Mild anasarca of the soft tissues is also present. * PHYSICAL EXAMINATION: GENERAL: VSS, NAD, Afebrile HEENT: Unremarkable NECK: Supple, trachea midline. CHEST: Rise symmetrical, without dyspnea on observation HEART: Pulse RRR ABDOMEN: Soft, (+)TENDER EXTREMITIES: Warm ID ASSESSMENT 41 yo obese F admit with: 1. Systemic inflammatory response syndrome, s/p septicemia, with persistent leukocytosis, low grade temperatures have resolved 2. Polymicrobial Bacteremia=> Bacteroides + CoNS 3. Status post total abdominal hysterectomy with a questionable intra-abdominal abscess as per CT of the abdomen and pelvis 4. Bilateral pleural layering pleural effusions w/mild cardiomegaly 5. LUIS F - elevated serum creatinine 6. Acute on chronic anemia, s/p 2 units pRBC. Hemoglobin stable now at 9.7g/ dl. 7. Pain issues -> increase demands for pain meds INVASIVES: PIV ABX ALLERGY: KNDA CURRENT ABX: => Zosyn (renally dosed) ID RECOMMENDATIONS 1. Continue current ABX => Zosyn renal dose adjusted 2. Possible IR drainage vs back to OR ? => follow MARKET RESEARCH MANAGER + Primary recommendations 3. Observe over the weekend on ABX -> Reassess by ID team next week . Problems: Consultation Date/Type/Reason Admit Date/Time Dec 14, 2016 at 19:07 Initial Consult Date 12/16/16 Type of Consultation: ID Referring Provider: NAVEED CLARKE MD Exam/Review of Systems Vital Signs Vitals Vital Signs Date Time Temp Pulse Resp B/P Pulse Ox O2 Delivery O2 Flow Rate FiO2 12/20/16 12:23 83 12/20/16 11:41 97.6 19 134/73 93 12/20/16 06:30 2.0 12/19/16 08:20 Nasal Cannula Intake and Output 12/19/16 12/19/16 12/20/16 15:00 23:00 07:00 Intake Total 50 ml 1240 ml 2790 ml Balance 50 ml 1240 ml 2790 ml Results Result Diagram: 12/20/16 0500 12/20/16 0657 Results 24 hrs Laboratory Tests Test 12/20/16 05:00 12/20/16 06:57 White Blood Count 19.0 H Red Blood Count 3.30 L Hemoglobin 9.7 L Hematocrit 29.4 L Mean Corpuscular Volume 89.1 Mean Corpuscular Hemoglobin 29.4 Mean Corpuscular Hemoglobin Concent 33.0 Red Cell Distribution Width 16.3 H Platelet Count 453 H Mean Platelet Volume 10.2 Neutrophils % 88.0 H Band Neutrophils % 4.0 Lymphocytes % 5.0 L Monocytes % 1.0 Neutrophils # 16.7 H Lymphocytes # 1.0 Monocytes # 0.2 L Prothrombin Time 13.9 Prothrombin Time Ratio 1.1 INR International Normalized Ratio 1.07 Activated Partial Thromboplast Time 30.6 Sodium Level 136 Potassium Level 3.2 L Chloride Level 100 Carbon Dioxide Level 25 Anion Gap 14 Blood Urea Nitrogen 17 Creatinine 1.76 H Glucose Level 110 Calcium Level 7.9 L Phosphorus Level 6.0 H Magnesium Level 1.9 Total Bilirubin 0.4 Direct Bilirubin 0.00 Indirect Bilirubin 0.4 Aspartate Amino Transf (AST/SGOT) 64 H Alanine Aminotransferase (ALT/SGPT) 53 Alkaline Phosphatase 286 H Total Protein 5.5 L Albumin 2.2 L Globulin 3.30 H Albumin/Globulin Ratio 0.66 Medications Medications Current Medications Oxycodone/ Acetaminophen (Percocet (5/ 325)) 1 tab Q4H PRN PO PAIN Last administered on 12/20/16 14:32; Admin Dose 1 TAB; Start 12/14/16 at 23:30 Oxycodone/ Acetaminophen (Percocet (5/ 325)) 2 tab Q3H PRN PO SEVERE PAIN Last administered on 12/20/16 01:13; Admin Dose 2 TAB; Start 12/14/16 at 23:30 Acetaminophen (Tylenol Tab) 650 mg Q6H PRN PO PAIN AND OR ELEVATED TEMP Last administered on 12/17/16 12:53; Admin Dose 650 MG; Start 12/14/16 at 23:30 Zolpidem Tartrate (Ambien) 10 mg HS PRN PO INSOMNIA Last administered on 00:31; Admin Dose 10 MG; Start 12/14/16 at 23:30 Ondansetron HCl (Zofran Inj) 4 mg Q4H PRN IV NAUSEA AND/OR VOMITING; Start 12/14 at 23:30 Diagnostic Test (Pha) (Accu-Chek) 1 ea 02 XX Last administered on 12/19/16 02: 44; Admin Dose 1 EA; Start 12/16/16 at 02:00 Miscellaneous Information 1 ea NOTE XX ; Start 12/15/16 at 07:00 Glucose (Glutose) 15 gm Q15M PRN PO DECREASED GLUCOSE; Start 12/15/16 at 07:00 Glucose (Glutose) 22.5 gm Q15M PRN PO DECREASED GLUCOSE; Start 12/15/16 at 07:00 Dextrose (D50w Syringe) 25 ml Q15M PRN IV DECREASED GLUCOSE; Start 12/15/16 at 07:00 Dextrose (D50w Syringe) 50 ml Q15M PRN IV DECREASED GLUCOSE; Start 12/15/16 at 07:00 Glucagon (Glucagen) 1 mg Q15M PRN IM DECREASED GLUCOSE; Start 12/15/16 at 07:00 Glucose (Glutose) 15 gm Q15M PRN BUCCAL DECREASED GLUCOSE; Start 12/15/16 at 07: 00 Docusate Sodium 100 mg 100 mg TID PO Last administered on 12/20/16 14:32; Admin Dose 100 MG; Start 12/15/16 at 13:00 Sodium Chloride 1,000 ml @ 75 mls/hr [id number] IV Last administered on 12/20/16 14:31; Admin Dose 75 MLS/HR; Start 12/16/16 at 17:00 Piperacillin Sod/ Tazobactam Sod (Zosyn 2.25gm/ 50ml (Pmx)) 50 ml @ 100 mls/hr Q8 IVPB Last administered on 12/20/16 14:36; Admin Dose 100 MLS/HR; Start at 14:00 Famotidine (Pepcid) 20 mg DAILY PO Last administered on 12/20/16 08:20; Admin Dose 20 MG; Start 12/18/16 at 09:00 Magnesium Hydroxide (Milk Of Mag) 30 ml DAILY PRN PO CONSTIPATION Last administered on 12/18/16 21:17; Admin Dose 30 ML; Start 12/18/16 at 19:30 ARON FRANCISCO TECHNICAL BUSINESS ANALYST Dec 20, 2016 16:01
--- NOTE | 2016-12-20 19:34 | PN ---
Date/Time of Note Date/Time of Note DATE: 12/15/16 TIME: 0800 Assessment/Plan Lines/Catheters IV Catheter Type (from Nrs): Peripheral IV Teague in Place (from Nrs): No Assessment/Plan Chief Complaint/Hosp Course POST OP DAY 5 Problems: Assessment/Plan CONTINUE WITH IV ANTIBIOTICS REVIEWED LABS Subjective 24 Hr Interval Summary patient fells better less incisional pain good bowel movement last night in ER good urine output Exam/Review of Systems Vital Signs Vitals Vital Signs Date Time Temp Pulse Resp B/P Pulse Ox O2 Delivery O2 Flow Rate FiO2 12/20/16 16:17 85 12/20/16 16:07 97.6 19 155/80 97 12/20/16 06:30 2.0 12/19/16 08:20 Nasal Cannula Intake and Output 12/19/16 12/19/16 12/20/16 15:00 23:00 07:00 Intake Total 50 ml 1240 ml 2790 ml Balance 50 ml 1240 ml 2790 ml Exam Free Text/Dictation VITAL SIGNS STABLE LOW GRADE FEVER LUNGS CLEAR ABDOMEN SOFT BOWEL SOUNDS GOOD WOUND DRY NO VAGINAL BLEEDING EXTREMITIES NO CALF TENDERNESS Results Result Diagram: 12/20/16 0500 12/20/16 0657 NAVEED CLARKE MD Dec 20, 2016 19:30
--- NOTE | 2016-12-20 19:39 | PN ---
Date/Time of Note Date/Time of Note DATE: 12/16/16 TIME: 17:00 Assessment/Plan Lines/Catheters IV Catheter Type (from Nrs): Peripheral IV Teague in Place (from Nrs): No Assessment/Plan Chief Complaint/Hosp Course POST OP DAY 6 Problems: Assessment/Plan CONTINUE WITH IV MEDS REVIEWED LAB RESULT Subjective 24 Hr Interval Summary PATIENT FEELS BETTER LESS INCISION PAIN LITTLE BOWEL MOVEMENT TODAY GOOD URINE OUTPUT Exam/Review of Systems Vital Signs Vitals Vital Signs Date Time Temp Pulse Resp B/P Pulse Ox O2 Delivery O2 Flow Rate FiO2 12/20/16 16:17 85 12/20/16 16:07 97.6 19 155/80 97 12/20/16 06:30 2.0 12/19/16 08:20 Nasal Cannula Intake and Output 12/19/16 12/19/16 12/20/16 15:00 23:00 07:00 Intake Total 50 ml 1240 ml 2790 ml Balance 50 ml 1240 ml 2790 ml Exam Free Text/Dictation STILL WITH LOW GRADE FEVER ABDOMEN SOFT BOWEL SOUND GOOD WOUND DRY NO DISTENTION EXTREMITIES NO CALF TNEDERNESS Results Result Diagram: 12/20/16 0500 12/20/16 0657 NAVEED CLARKE MD Dec 20, 2016 19:39
--- NOTE | 2016-12-20 19:45 | PN ---
Date/Time of Note Date/Time of Note DATE: 12/17/16 TIME: 16:00 Assessment/Plan Lines/Catheters IV Catheter Type (from Nrsg): Peripheral IV Teague in Place (from Nrsg): No Assessment/Plan Chief Complaint/Hosp Course POST OP DAY 7 Problems: Assessment/Plan ON TRIPLE ANTIBIOTICS LABS REVIEWED Subjective 24 Hr Interval Summary COMPLAIN OF LESS INCISIONAL PAIN FEELS WEAK NO APPETITE Exam/Review of Systems Vital Signs Vitals Vital Signs Date Time Temp Pulse Resp B/P Pulse Ox O2 Delivery O2 Flow Rate FiO2 12/20/16 16:17 85 12/20/16 16:07 97.6 19 155/80 97 12/20/16 06:30 2.0 12/19/16 08:20 Nasal Cannula Intake and Output 12/19/16 12/19/16 12/20/16 15:00 23:00 07:00 Intake Total 50 ml 1240 ml 2790 ml Balance 50 ml 1240 ml 2790 ml Exam Free Text/Dictation STILL WITH LOW GRADE FEVER PRELIMENARY REPORT ON BLOOD CULTURE CAME NO SENSITIVITY YET ABDOMEN SOFT BOWEL SOUND GOOD NO DISTENTION EXTREMITIES NO CALF TENDERNESS Results Result Diagram: 12/20/16 0500 12/20/16 0657 NAVEED CLARKE MD Dec 20, 2016 19:45
--- NOTE | 2016-12-20 20:19 | PN ---
Date/Time of Note Date/Time of Note DATE: 12/18/16 TIME: 10:00 Assessment/Plan Lines/Catheters IV Catheter Type (from [facility]): Peripheral IV Teague in Place (from [facility]): No Assessment/Plan Chief Complaint/Hosp Course POST OP DAY 8 Problems: Assessment/Plan SEE ID NOTES LABS REVIEWED CONSULT NOTES NOTED Subjective 24 Hr Interval Summary PATIENT IS ALERT AND AWAKE RECEIVED 2 UNITS OF PACKED CELLS PATIENT FEELS SAME TOLERATING DIET Exam/Review of Systems Vital Signs Vitals Vital Signs Date Time Temp Pulse Resp B/P Pulse Ox O2 Delivery O2 Flow Rate FiO2 12/20/16 16:17 85 12/20/16 16:07 97.6 19 155/80 97 12/20/16 06:30 2.0 12/19/16 08:20 Nasal Cannula Intake and Output 12/19/16 12/19/16 12/20/16 15:00 23:00 07:00 Intake Total 50 ml 1240 ml 2790 ml Balance 50 ml 1240 ml 2790 ml Exam Free Text/Dictation GOOD BOWEL MOVEMENT WITH RECTAL SUPPOSITORY SENSITIVITY REPORT CAME AFEBRILE VITAL SIGNS STABLE ABDOMEN SOFT BOWEL SOUND GOOD WOUND DRY NO INDURATION SEEN EXTREMITIES NO CALF TENDERNESS Results Result Diagram: 12/20/16 0500 12/20/16 0657 NAVEED CLARKE MD Dec 20, 2016 20:17
--- NOTE | 2016-12-20 20:24 | PN ---
Date/Time of Note Date/Time of Note DATE: 12/19/16 TIME: 18:00 Assessment/Plan Lines/Catheters IV Catheter Type (from Nrsg): Peripheral IV Teague in Place (from Nrsg): No Assessment/Plan Chief Complaint/Hosp Course POST OP DAY 9 Problems: Assessment/Plan DR PERAZA ORDERED CT FOR TOMORROW Subjective 24 Hr Interval Summary PATIENT LOOKS BETTER LESS INCISIONAL PAIN Exam/Review of Systems Vital Signs Vitals Vital Signs Date Time Temp Pulse Resp B/P Pulse Ox O2 Delivery O2 Flow Rate FiO2 12/20/16 16:17 85 12/20/16 16:07 97.6 19 155/80 97 12/20/16 06:30 2.0 12/19/16 08:20 Nasal Cannula Intake and Output 12/19/16 12/19/16 12/20/16 15:00 23:00 07:00 Intake Total 50 ml 1240 ml 2790 ml Balance 50 ml 1240 ml 2790 ml Exam Free Text/Dictation CHEST XRAY REPORT NOTED CASE DISCUSSED WITH DR PERAZA AND WITH ID DOCTOR DR REDDING ABDOMEN SOFT BOWEL SOUND GOOD WOUND DRY EXTREMITIES NO CALF TENDERNESS Results Result Diagram: 12/20/16 0500 12/20/16 0657 NAVEED CLARKE MD Dec 20, 2016 20:24
[2016-12-21] VITALS (12 sets, daily range): BP systolic 136–158; BP diastolic 61–84; PULSE 75–90; RESP 16–20
[2016-12-21] MEDS: OXYCODONE/ACETAMINOPHEN (5/325) TAB PO PRN ×4 (01:48→19:12)
[2016-12-21] MEDS: ACCU-CHEK XX SCH ×2 (02:00→20:35)
[2016-12-21] MEDS: SOD CHLORIDE 0.9% 1,000 ML IV SCH (05:12)
[2016-12-21] MEDS: PIPER-TAZO 2.25 GM (PMX) 50 ML IVPB SCH ×3 (06:22→21:53)
[2016-12-21 06:35] LABS: ADD SCAN DIFF NO
[2016-12-21 06:43] LABS: BASOPHILS % 0.2 % (0.0-2.0); EOSINOPHILS # 0.2 10^3/ul (0.0-0.5); HEMATOCRIT 30.1 % (37.0-47.0); HEMOGLOBIN 9.9 g/dl (12.0-16.0); LYMPHOCYTES # 1.8 10^3/ul (0.8-2.9); LYMPHOCYTES % 10.7 % (15.0-51.0); MEAN CORPUSCULAR HEMOGLOBIN 29.7 pg (29.0-33.0); MEAN CORPUSCULAR HGB CONC 32.9 g/dl (32.0-37.0); MEAN CORPUSCULAR VOLUME 90.4 fl (82.0-101.0); MEAN PLATELET VOLUME 9.7 fl (7.4-10.4); MONOCYTE # 1.1 10^3/ul (0.3-0.9); MONOCYTES % 6.7 % (0.0-11.0); NEUTROPHIL # 13.2 10^3/ul (1.6-7.5); NEUTROPHILS % 79.9 % (39.0-77.0); PLATELET COUNT 475 10^3/UL (140-415); RED BLOOD COUNT 3.33 10^6/ul (4.20-5.40); RED CELL DISTRIBUTION WIDTH 16.2 % (11.5-14.5); WHITE BLOOD COUNT 16.5 10^3/ul (4.8-10.8)
[2016-12-21 06:57] LABS: POTASSIUM 3.7 mmol/L (3.5-5.1)
[2016-12-21 07:00] LABS: CREATININE 1.61 mg/dl (0.44-1.00)
[2016-12-21 07:01] LABS: CALCIUM 7.8 mg/dl (8.4-10.2)
[2016-12-21] MEDS: DOCUSATE SODIUM 100 MG CAP PO SCH ×3 (09:00→20:37)
[2016-12-21] MEDS: FAMOTIDINE 20 MG TAB PO SCH (09:00)
[2016-12-21] MEDS ORDERED: DIPHENHYDRAMINE 50 MG INJ IV SCH (10:30)
[2016-12-21] MEDS ORDERED: LIDOCAINE 1% (MDV) 20 ML INJ INJ SCH (10:30)
--- NOTE | 2016-12-21 12:06 | PN ---
Date/Time of Note Date/Time of Note DATE: 12/21/16 TIME: 11:55 Assessment/Plan VTE Prophylaxis VTE Prophylaxis Intervention: SCD's Lines/Catheters IV Catheter Type (from [facility]): Peripheral IV Urinary Cath still in place: No Assessment/Plan Assessment/Plan [facility] 1. 41-year-old patient of Dr. Susie Man who is hospital day 5 with after presenting with SIRS/sepsis, tachycardia, bandemia, leukocytosis, and a blood culture positive for bacteroides and coagulase-negative Staph. She is now POD 10 s/p total abdominal hysterectomy and lysis of adhesions. Lower WBC count today (16k/ul), now s/p IR drainage this morning of pelvic fluid collection. Much less abdominal pain now. CT yesterday showed a complex 8x12cm fluid collection in the pelvis, and a fluid pocket under the liver. But she had no RUQ tenderness on exam, and no rebound or guarding. * I reviewed the case with Dr. Man. She indicated that the mesh she placed doesn't get absorbed for about 3 weeks. She anticipated 2-3 more days of observation and drainage from the pelvic site. * OK to eat now. * Complete current liter of IV fluids and then discontinue. * Day 5 Zosyn, per Jesenia Barclay CORE PLACER (ID) 2. Renal insufficiency, with improved creatinine today to 1.61. Corrected calcium is physiologic, correcting for the hypoalbuminemia (2.2 g/dl). Hypokalemia resolved (3.7 today). Acute kidney injury thought secondary to sepsis. Renal US was within normal limits. 3. Acute on chronic anemia, s/p 2 units pRBC. Hemoglobin stable now at 9.9 g/ dl. * Will start her on ferrous gluconate 324mg PO BID 4. Prophylaxis: SCDs for DVT prophylaxis, Pepcid for GI prophylaxis 5. Disposition: IR drain in place. Continue IV antibiotics. Hopefully home once drainage fluid culture results are available, drainage dwindles, and drain can be removed. Satya Emmanuel MD PhD [phone] Subjective 24 Hr Interval Summary Free Text/Dictation Mother with her at bedside. Feeling much better. No abdominal pain now. Improved appetite. No dyspnea or cough. Exam/Review of Systems Vital Signs Vitals Vital Signs Date Time Temp Pulse Resp B/P Pulse Ox O2 Delivery O2 Flow Rate FiO2 12/21/16 08:00 82 12/21/16 07:38 97.9 17 136/73 94 12/21/16 00:15 2.0 12/19/16 08:20 Nasal Cannula Intake and Output 12/20/16 12/20/16 12/21/16 15:00 23:00 07:00 Intake Total 50 ml 2425 ml 992 ml Output Total 2000 ml Balance 50 ml 425 ml 992 ml Exam Constitutional: alert, serious, well developed, breathing comfortably on room air. Respiratory: clear to auscultation, normal air movement Cardiovascular: Symmetric pulses, regular rhythm and normal rate, no murmur. Gastrointestinal: soft, non-tender (including RUQ), no rebound or guarding. Musculoskeletal: Normal extremities to inspection, no edema, clubbing or cyanosis. Neurological: TIRE SERVICER II-XII intact, nl mental status, nl speech, nl strength. Downgoing toes. Results Result Diagram: 12/21/16 0620 12/21/16 0620 Results 24 hrs Laboratory Tests Test 12/21/16 06:20 White Blood Count 16.5 H Red Blood Count 3.33 L Hemoglobin 9.9 L Hematocrit 30.1 L Mean Corpuscular Volume 90.4 Mean Corpuscular Hemoglobin 29.7 Mean Corpuscular Hemoglobin Concent 32.9 Red Cell Distribution Width 16.2 H Platelet Count 475 H Mean Platelet Volume 9.7 Neutrophils % 79.9 H Lymphocytes % 10.7 L Monocytes % 6.7 Eosinophils % 1.0 Basophils % 0.2 Nucleated Red Blood Cells % 0.0 Neutrophils # 13.2 H Lymphocytes # 1.8 Monocytes # 1.1 H Eosinophils # 0.2 Basophils # 0.0 Nucleated Red Blood Cells # 0.0 Sodium Level 138 Potassium Level 3.7 Chloride Level 103 Carbon Dioxide Level 27 Anion Gap 12 Blood Urea Nitrogen 14 Creatinine 1.61 H Glucose Level 94 Hemoglobin A1c 5.2 Calcium Level 7.8 L Medications Medications Current Medications Oxycodone/ Acetaminophen (Percocet (5/ 325)) 1 tab Q4H PRN PO PAIN Last administered on 12/20/16t 18:29; Admin Dose 1 TAB; Start 12/14/16 at 23:30 Oxycodone/ Acetaminophen (Percocet (5/ 325)) 2 tab Q3H PRN PO SEVERE PAIN Last administered on 12/21/16 10:12; Admin Dose 2 TAB; Start 12/14/16 at 23:30 Acetaminophen (Tylenol Tab) 650 mg Q6H PRN PO PAIN AND OR ELEVATED TEMP Last administered on 12/17/16 12:53; Admin Dose 650 MG; Start 12/14/16 at 23:30 Zolpidem Tartrate (Ambien) 10 mg HS PRN PO INSOMNIA Last administered on 00:31; Admin Dose 10 MG; Start 12/14/16 at 23:30 Ondansetron HCl (Zofran Inj) 4 mg Q4H PRN IV NAUSEA AND/OR VOMITING; Start 12/14 at 23:30 Diagnostic Test (Pha) (Accu-Chek) 1 ea 02 XX Last administered on 12/19/16 02: 44; Admin Dose 1 EA; Start 12/16/16 at 02:00 Miscellaneous Information 1 ea NOTE XX ; Start 12/15/16 at 07:00 Glucose (Glutose) 15 gm Q15M PRN PO DECREASED GLUCOSE; Start 12/15/16 at 07:00 Glucose (Glutose) 22.5 gm Q15M PRN PO DECREASED GLUCOSE; Start 12/15/16 at 07:00 Dextrose (D50w Syringe) 25 ml Q15M PRN IV DECREASED GLUCOSE; Start 12/15/16 at 07:00 Dextrose (D50w Syringe) 50 ml Q15M PRN IV DECREASED GLUCOSE; Start 12/15/16 at 07:00 Glucagon (Glucagen) 1 mg Q15M PRN IM DECREASED GLUCOSE; Start 12/15/16 at 07:00 Glucose (Glutose) 15 gm Q15M PRN BUCCAL DECREASED GLUCOSE; Start 12/15/16 at 07: 00 Docusate Sodium 100 mg 100 mg TID PO Last administered on 12/20/16 21:25; Admin Dose 100 MG; Start 12/15/16 at 13:00 Sodium Chloride 1,000 ml @ 75 mls/hr [id number] IV Last administered on 12/21/16 05:12; Admin Dose 75 MLS/HR; Start 12/16/16 at 17:00 Piperacillin Sod/ Tazobactam Sod (Zosyn 2.25gm/ 50ml (Pmx)) 50 ml @ 100 mls/hr Q8 IVPB Last administered on 12/21/16 06:22; Admin Dose 100 MLS/HR; Start at 14:00 Famotidine (Pepcid) 20 mg DAILY PO Last administered on 12/20/16 08:20; Admin Dose 20 MG; Start 12/18/16 at 09:00 Magnesium Hydroxide (Milk Of Mag) 30 ml DAILY PRN PO CONSTIPATION Last administered on 12/18/16 21:17; Admin Dose 30 ML; Start 12/18/16 at 19:30 BOAZ EMMANUEL M.D. Dec 21, 2016 12:06
--- NOTE | 2016-12-21 13:44 | CONS ---
Date/Time of Note Date/Time of Note DATE: 12/21/16 TIME: 13:41 Assessment/Plan Assessment/Plan Chief Complaint/Hosp Course ID PROGRESS NOTE CURRENT ABX=> Zosyn 24H INTERVAL SUMMARY * A/A/O -. s/p IR Drain placement w/downey colored drainage -- she feels much better, denies ABD/pelvic pain * ?hopefully drain fluid sent for micro C&S will check * No fevers, WBC down today * Family members present * PHYSICAL EXAMINATION: GENERAL: VSS, NAD, Afebrile HEENT: Unremarkable NECK: Supple, trachea midline. CHEST: Rise symmetrical, without dyspnea on observation HEART: Pulse RRR ABDOMEN: Soft, (+)TENDER EXTREMITIES: Warm ID ASSESSMENT 41 yo obese F admit with: 1. Systemic inflammatory response syndrome, s/p septicemia, with persistent leukocytosis, low grade temperatures have resolved 2. Polymicrobial Bacteremia=> Bacteroides + CoNS 3. Status post total abdominal hysterectomy with a questionable intra-abdominal abscess as per CT of the abdomen and pelvis * s/p IR drain placement w/ drain intact 4. Bilateral pleural layering pleural effusions w/mild cardiomegaly 5. LUIS F - elevated serum creatinine 6. Acute on chronic anemia, s/p 2 units pRBC. Hemoglobin stable now at 9.7g/ dl. 7. Pain issues -> increase demands for pain meds INVASIVES: PIV ABX ALLERGY: KNDA CURRENT ABX: => Zosyn (renally dosed) ID RECOMMENDATIONS 1. Continue current ABX => Zosyn renal dose adjusted 2. F/U IR Drainage Fluid cultures sent ? 3. Observe over the weekend on ABX -> Reassess by ID team next week . Problems: Consultation Date/Type/Reason Admit Date/Time Dec 14, 2016 at 19:07 Initial Consult Date 12/16/16 Type of Consultation: ID Referring Provider: NAVEED CLARKE MD Exam/Review of Systems Vital Signs Vitals Vital Signs Date Time Temp Pulse Resp B/P Pulse Ox O2 Delivery O2 Flow Rate FiO2 12/21/16 12:14 98.2 85 19 144/72 96 12/21/16 00:15 2.0 12/19/16 08:20 Nasal Cannula Intake and Output 12/20/16 12/20/16 12/21/16 15:00 23:00 07:00 Intake Total 50 ml 2425 ml 992 ml Output Total 2000 ml Balance 50 ml 425 ml 992 ml Results Result Diagram: 12/21/16 0620 12/21/16 0620 Results 24 hrs Laboratory Tests Test 12/21/16 06:20 White Blood Count 16.5 H Red Blood Count 3.33 L Hemoglobin 9.9 L Hematocrit 30.1 L Mean Corpuscular Volume 90.4 Mean Corpuscular Hemoglobin 29.7 Mean Corpuscular Hemoglobin Concent 32.9 Red Cell Distribution Width 16.2 H Platelet Count 475 H Mean Platelet Volume 9.7 Neutrophils % 79.9 H Lymphocytes % 10.7 L Monocytes % 6.7 Eosinophils % 1.0 Basophils % 0.2 Nucleated Red Blood Cells % 0.0 Neutrophils # 13.2 H Lymphocytes # 1.8 Monocytes # 1.1 H Eosinophils # 0.2 Basophils # 0.0 Nucleated Red Blood Cells # 0.0 Sodium Level 138 Potassium Level 3.7 Chloride Level 103 Carbon Dioxide Level 27 Anion Gap 12 Blood Urea Nitrogen 14 Creatinine 1.61 H Glucose Level 94 Hemoglobin A1c 5.2 Calcium Level 7.8 L Medications Medications Current Medications Oxycodone/ Acetaminophen (Percocet (5/ 325)) 1 tab Q4H PRN PO PAIN Last administered on 12/20/16 18:29; Admin Dose 1 TAB; Start 12/14/16 at 23:30 Oxycodone/ Acetaminophen (Percocet (5/ 325)) 2 tab Q3H PRN PO SEVERE PAIN Last administered on 12/21/16 10:12; Admin Dose 2 TAB; Start 12/14/16 at 23:30 Acetaminophen (Tylenol Tab) 650 mg Q6H PRN PO PAIN AND OR ELEVATED TEMP Last administered on 12/17/16 12:53; Admin Dose 650 MG; Start 12/14/16 at 23:30 Zolpidem Tartrate (Ambien) 10 mg HS PRN PO INSOMNIA Last administered on 00:31; Admin Dose 10 MG; Start 12/14/16 at 23:30 Ondansetron HCl (Zofran Inj) 4 mg Q4H PRN IV NAUSEA AND/OR VOMITING; Start 12/14 at 23:30 Diagnostic Test (Pha) (Accu-Chek) 1 ea 02 XX Last administered on 12/19/16 02: 44; Admin Dose 1 EA; Start 12/16/16 at 02:00 Miscellaneous Information 1 ea NOTE XX ; Start 12/15/16 at 07:00 Glucose (Glutose) 15 gm Q15M PRN PO DECREASED GLUCOSE; Start 12/15/16 at 07:00 Glucose (Glutose) 22.5 gm Q15M PRN PO DECREASED GLUCOSE; Start 12/15/16 at 07:00 Dextrose (D50w Syringe) 25 ml Q15M PRN IV DECREASED GLUCOSE; Start 12/15/16 at 07:00 Dextrose (D50w Syringe) 50 ml Q15M PRN IV DECREASED GLUCOSE; Start 12/15/16 at 07:00 Glucagon (Glucagen) 1 mg Q15M PRN IM DECREASED GLUCOSE; Start 12/15/16 at 07:00 Glucose (Glutose) 15 gm Q15M PRN BUCCAL DECREASED GLUCOSE; Start 12/15/16 at 07: 00 Docusate Sodium 100 mg 100 mg TID PO Last administered on 12/21/16 12:45; Admin Dose 100 MG; Start 12/15/16 at 13:00 Sodium Chloride 1,000 ml @ 75 mls/hr [id number] IV Last administered on 12/21/16 05:12; Admin Dose 75 MLS/HR; Start 12/16/16 at 17:00 Piperacillin Sod/ Tazobactam Sod (Zosyn 2.25gm/ 50ml (Pmx)) 50 ml @ 100 mls/hr Q8 IVPB Last administered on 12/21/16 13:20; Admin Dose 100 MLS/HR; Start at 14:00 Famotidine (Pepcid) 20 mg DAILY PO Last administered on 12/20/16 08:20; Admin Dose 20 MG; Start 12/18/16 at 09:00 Magnesium Hydroxide (Milk Of Mag) 30 ml DAILY PRN PO CONSTIPATION Last administered on 12/18/16 21:17; Admin Dose 30 ML; Start 12/18/16 at 19:30 ARON FRANCISCO NP Dec 21, 2016 13:44
--- NOTE | 2016-12-21 16:06 | PN ---
DATE: 12/21/2016 TIME OF PROGRESS NOTE: 1:43 p.m. on 12/21/2013 SUBJECTIVE: The patient feels better. She had her aspiration of fluid from the interventional radi ology and she feels better and she has less abdominal pain. The patient feels hungry. OBJECTIVE VITAL SIGNS: She is afebrile. Vital signs stable. ABDOMEN: Soft, mildly tender on the abdomen. Wound is dry. EXTREMITIES: No calf tenderness. ASSESSMENT: Postoperative drainage of the pelvic area. PLAN: 1. Continue to observe for the drainage. I discussed this case with the interventional radiologist around 9:00 in the morning today, 12/21/2016. 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 The size is almost the same from the time of admission the second time up to the CT scan that was done on 12/20/2016. The case was discussed with him so he is aware that an absorbabl e mesh was put in. Then, after he had drained the pelvic area, he called me with his findings. He said that he got about less than 15 mL of fluid from the pelvic area, but he had left the drain. I requested him to send this fluid for culture and sensitivity. So the patient tolerated the procedur e well. Dictated By: NAVEED CLARKE MD NS/NTS Conf#: [id number] DID#: [id number] CC: NAVEED CLARKE MD;*EndCC*
[2016-12-21] MEDS: ZOLPIDEM 5 MG TAB PO PRN (20:56)
[2016-12-22] VITALS (12 sets, daily range): BP systolic 119–160; BP diastolic 64–91; PULSE 80–90; RESP 16–18
[2016-12-22] MEDS: OXYCODONE/ACETAMINOPHEN (5/325) TAB PO PRN ×6 (00:55→22:00)
[2016-12-22] MEDS: PIPER-TAZO 2.25 GM (PMX) 50 ML IVPB SCH (05:09)
[2016-12-22 07:18] LABS: ADD SCAN DIFF NO
[2016-12-22 07:20] LABS: BASOPHILS % 0.1 % (0.0-2.0); EOSINOPHILS # 0.2 10^3/ul (0.0-0.5); EOSINOPHILS % 1.3 % (0.0-7.0); HEMOGLOBIN 9.5 g/dl (12.0-16.0); LYMPHOCYTES # 1.6 10^3/ul (0.8-2.9); MEAN CORPUSCULAR HEMOGLOBIN 28.9 pg (29.0-33.0); MEAN CORPUSCULAR HGB CONC 31.7 g/dl (32.0-37.0); MEAN CORPUSCULAR VOLUME 91.2 fl (82.0-101.0); MEAN PLATELET VOLUME 9.9 fl (7.4-10.4); MONOCYTES % 6.7 % (0.0-11.0); NEUTROPHIL # 11.6 10^3/ul (1.6-7.5); NEUTROPHILS % 79.7 % (39.0-77.0); PLATELET COUNT 499 10^3/UL (140-415); RED BLOOD COUNT 3.29 10^6/ul (4.20-5.40); RED CELL DISTRIBUTION WIDTH 16.2 % (11.5-14.5); WHITE BLOOD COUNT 14.5 10^3/ul (4.8-10.8)
[2016-12-22 07:47] LABS: ALBUMIN 2.3 g/dl (3.3-4.9); ALBUMIN/GLOBULIN RATIO 0.69; BILIRUBIN,INDIRECT 0.2 mg/dl (0-1.1); BILIRUBIN,TOTAL 0.2 mg/dl (0.2-1.3); CALCIUM 7.8 mg/dl (8.4-10.2); CREATININE 1.47 mg/dl (0.44-1.00); POTASSIUM 3.6 mmol/L (3.5-5.1); TOTAL PROTEIN 5.6 g/dl (6.1-8.1)
[2016-12-22] MEDS: FAMOTIDINE 20 MG TAB PO SCH (08:50)
[2016-12-22] MEDS: DOCUSATE SODIUM 100 MG CAP PO SCH ×3 (08:50→20:30)
--- NOTE | 2016-12-22 09:11 | RADRPT ---
PROCEDURE: 1. Limited CT pelvis. 2. CT guided pelvic drain placement. 3. Moderate sedation. CLINICAL INDICATION: Postoperative pelvic abscess. TECHNIQUE: Risks benefits and alternatives of the procedure were explained to the patient. Inform ed written consent was obtained. Preliminary contour sander CT of the pelvis was performed. Fluid and gas w as identified in the deep pelvis and left lower quadrant. The overlying skin of the left anterior p elvic wall was prepped and draped in the usual sterile fashion. Under CT guidance, a 5-South African Yueh catheter was introduced into the collection. Approximately five cc of thick brown purulent fluid was aspirated without difficulty. The Yueh catheter was then advanced into the collection, and the nee dle removed. A stiff shaft Amplatz wire was advanced through the the catheter which was removed ove r the wire. The skin subcutaneous tissues were dilated to 8-South African. An 8.5 South African all-purpose drain age catheter with locking pigtail was then advanced into the collection. The pigtail was string fix ed. A repeat CT was performed to confirm positioning. The catheter was secured to the patient's skin with 2-0 silk sutures. The catheter was attached to a drainage bag. The patient tolerated pro cedure well without complication. CTDI = 79 mGy. DLP = 1450.5 mGy-cm. COMPARISON: CT abdomen pelvis 12/20/2016 FINDINGS: 1. Nurse Practitioner Per Diem CT demonstrates large collection of fluid and gas in the midline pelvis. 2. Initial aspiration demonstrates thick brown purulent fluid. 3. Post procedure CT demonstrates catheter in appropriate position within the fluid collection. IMPRESSION: 1. Successful CT guided drain placement with pelvic abscess. RPTAT: KK .Antonio Haro MD, MD Date Time Electronically viewed and signed by .Antonio Haro MD, MD on 12/22/2016 09:10 .B/
--- NOTE | 2016-12-22 09:47 | PN ---
Date/Time of Note Date/Time of Note DATE: 12/22/16 TIME: 09:39 Assessment/Plan Lines/Catheters IV Catheter Type (from Nrs): Peripheral IV Teague in Place (from [facility]): No Assessment/Plan Chief Complaint/Hosp Course POST OP DAY 12 Problems: Assessment/Plan LABS REVIEWED CONTINUE WITH PRESENT MANAGEMENT Subjective 24 Hr Interval Summary PATIENT FEELS BETTER GOOD BOWEL MOVEMENT GOOD URINE OUTPUT GOOD DRAINAGE FROM TUBING Exam/Review of Systems Vital Signs Vitals Vital Signs Date Time Temp Pulse Resp B/P Pulse Ox O2 Delivery O2 Flow Rate FiO2 12/22/16 08:33 80 12/22/16 08:24 97.9 18 122/65 94 12/21/16 21:47 Nasal Cannula 2.0 Intake and Output 12/21/16 12/21/16 12/22/16 15:00 23:00 07:00 Intake Total 1650 ml 450 ml Output Total 1220 ml 40 ml Balance 430 ml 410 ml Exam Free Text/Dictation ABDOMEN SOFT WOUND DRY AND CLEAN BOWEL SOUND GOOD EXTREMITIES NO CALF TENDERNESS Results Result Diagram: 12/22/16 0641 12/22/16 0641 NAVEED CLARKE MD Dec 22, 2016 09:47
[2016-12-22] MEDS ORDERED: POTASSIUM CHLORIDE (SR) 20 MEQ TAB PO STA (10:06)
--- NOTE | 2016-12-22 10:06 | PN ---
Date/Time of Note Date/Time of Note DATE: 12/22/16 TIME: 09:52 Assessment/Plan VTE Prophylaxis VTE Prophylaxis Intervention: SCD's Lines/Catheters IV Catheter Type (from Nrs): Peripheral IV Urinary Cath still in place: No Assessment/Plan Assessment/Plan 41-year-old female: 1. SIRS/sepsis, tachycardia, bandemia, leukocytosis, and a blood culture positive for bacteroides and coagulase-negative Staph. She is now POD 11 s/p total abdominal hysterectomy and lysis of adhesions. Afebrile, WBC keeps trending down s/p IR drainage of pelvic fluid collection and placement drain POD#1 and also with fluid pocket small under liver Minimal RUQ pain, much less abdominal pain. Tolerating po Continue Zosyn ID 2. Acute kidney injury thought secondary to sepsis. Renal US was within normal limits. Renal function improving, with creat 1.47 3. Acute on chronic anemia, s/p 2 units pRBC. Hb stable, agree with supplemental Prophylaxis: SCDs for DVT prophylaxis, Pepcid for GI prophylaxis Disposition: s/p IR drain in place. Continue IV antibiotics and follow up further recommendations from ENGRAVING PLATE MAKER. Subjective 24 Hr Interval Summary Free Text/Dictation Patient remains stable this AM Afebrile, leukocytosis improving and drain in place Tolerating po well Exam/Review of Systems Vital Signs Vitals Vital Signs Date Time Temp Pulse Resp B/P Pulse Ox O2 Delivery O2 Flow Rate FiO2 12/22/16 08:33 80 12/22/16 08:24 97.9 18 122/65 94 12/21/16 21:47 Nasal Cannula 2.0 Intake and Output 12/21/16 12/21/16 12/22/16 14:59 22:59 06:59 Intake Total 10 ml 1650 ml 450 ml Output Total 1220 ml 40 ml Balance 10 ml 430 ml 410 ml Exam Constitutional: alert, oriented, well developed Respiratory: clear to auscultation, normal air movement Cardiovascular: nl pulses, regular rate and rhythm Gastrointestinal: other (drain in place with purulent output still ), soft, tender (very minimal TPP RUQ ) Musculoskeletal: nl extremities to inspection, nl gait and stance Neurological: SALES PROJECT COORDINATOR II-XII intact, nl mental status, nl speech, nl strength Results Result Diagram: 12/22/16 0641 12/22/16 0641 Results 24 hrs Laboratory Tests Test 12/22/16 06:41 White Blood Count 14.5 H Red Blood Count 3.29 L Hemoglobin 9.5 L Hematocrit 30.0 L Mean Corpuscular Volume 91.2 Mean Corpuscular Hemoglobin 28.9 L Mean Corpuscular Hemoglobin Concent 31.7 L Red Cell Distribution Width 16.2 H Platelet Count 499 H Mean Platelet Volume 9.9 Neutrophils % 79.7 H Lymphocytes % 11.0 L Monocytes % 6.7 Eosinophils % 1.3 Basophils % 0.1 Nucleated Red Blood Cells % 0.0 Neutrophils # 11.6 H Lymphocytes # 1.6 Monocytes # 1.0 H Eosinophils # 0.2 Basophils # 0.0 Nucleated Red Blood Cells # 0.0 Sodium Level 136 Potassium Level 3.6 Chloride Level 105 Carbon Dioxide Level 27 Anion Gap 8 Blood Urea Nitrogen 11 Creatinine 1.47 H Glucose Level 99 Calcium Level 7.8 L Total Bilirubin 0.2 Direct Bilirubin 0.00 Indirect Bilirubin 0.2 Aspartate Amino Transf (AST/SGOT) 59 H Alanine Aminotransferase (ALT/SGPT) 66 Alkaline Phosphatase 252 H Total Protein 5.6 L Albumin 2.3 L Globulin 3.30 H Albumin/Globulin Ratio 0.69 Medications Medications Current Medications Oxycodone/ Acetaminophen (Percocet (5/ 325)) 1 tab Q4H PRN PO PAIN Last administered on 12/21/16 15:25; Admin Dose 1 TAB; Start 12/14/16 at 23:30 Oxycodone/ Acetaminophen (Percocet (5/ 325)) 2 tab Q3H PRN PO SEVERE PAIN Last administered on 12/22/16 08:58; Admin Dose 2 TAB; Start 12/14/16 at 23:30 Acetaminophen (Tylenol Tab) 650 mg Q6H PRN PO PAIN AND OR ELEVATED TEMP Last administered on 12/17/16 12:53; Admin Dose 650 MG; Start 12/14/16 at 23:30 Zolpidem Tartrate (Ambien) 10 mg HS PRN PO INSOMNIA Last administered on 20:56; Admin Dose 10 MG; Start 12/14/16 at 23:30 Ondansetron HCl (Zofran Inj) 4 mg Q4H PRN IV NAUSEA AND/OR VOMITING; Start 12/14 at 23:30 Diagnostic Test (Pha) (Accu-Chek) 1 02 XX Last administered on 12/19/16 02: 44; Admin Dose 1 EA; Start 12/16/16 at 02:00 Miscellaneous Information 1 ea NOTE XX ; Start 12/15/16 at 07:00 Glucose (Glutose) 15 gm Q15M PRN PO DECREASED GLUCOSE; Start 12/15/16 at 07:00 Glucose (Glutose) 22.5 gm Q15M PRN PO DECREASED GLUCOSE; Start 12/15/16 at 07:00 Dextrose (D50w Syringe) 25 ml Q15M PRN IV DECREASED GLUCOSE; Start 12/15/16 at 07:00 Dextrose (D50w Syringe) 50 ml Q15M PRN IV DECREASED GLUCOSE; Start 12/15/16 at 07:00 Glucagon (Glucagen) 1 mg Q15M PRN IM DECREASED GLUCOSE; Start 12/15/16 at 07:00 Glucose (Glutose) 15 gm Q15M PRN BUCCAL DECREASED GLUCOSE; Start 12/15/16 at 07: 00 Docusate Sodium 100 mg 100 mg TID PO Last administered on 12/22/16 08:50; Admin Dose 100 MG; Start 12/15/16 at 13:00 Piperacillin Sod/ Tazobactam Sod (Zosyn 2.25gm/ 50ml (Pmx)) 50 ml @ 100 mls/hr Q8 IVPB Last administered on 12/22/16 05:09; Admin Dose 100 MLS/HR; Start 12/17 at 14:00 Famotidine (Pepcid) 20 mg DAILY PO Last administered on 12/22/16 08:50; Admin Dose 20 MG; Start 12/18/16 at 09:00 Magnesium Hydroxide (Milk Of Mag) 30 ml DAILY PRN PO CONSTIPATION Last administered on 12/18/16 21:17; Admin Dose 30 ML; Start 12/18/16 at 19:30 MEERA PERAZA Dec 22, 2016 10:02
[2016-12-22] MEDS ORDERED: PIPER-TAZO 3.375 GM IV (PMX) 100 ML IVPB SCH ×2 (13:00→18:00)
[2016-12-22] MEDS: PIPER-TAZO 3.375 GM IV (PMX) 100 ML IVPB SCH ×2 (13:43→20:31)
--- NOTE | 2016-12-22 17:31 | PN ---
DATE: 12/22/2016 SUBJECTIVE: The patient is alert, lying comfortably in bed, feels better. No fevers. LABORATORY: WBC today 14.5, neutrophils 79.7, BUN 11, creatinine 1.47. MICROBIOLOGY: Abdominal fluid cultures pending. ANTIMICROBIALS: Zosyn. PHYSICAL EXAMINATION: GENERAL: This is a morbidly obese, middle-aged woman who is alert, in no distress. HEENT: Head atraumatic, normocephalic. Sclerae anicteric. Buccal mucosa dry. NECK: Supple. CHEST: Rise symmetrical. Breath sounds diminished. HEART: S1, S2. ABDOMEN: Obese, soft, bowel tones present. EXTREMITIES: Without cyanosis. ASSESSMENT: 1. Systemic inflammatory response syndrome with persistent leukocytosis, white blood cell count tra cing down. 2. Postoperative intraabdominal abscess, status post CT-guided drainage with catheter placement. 3. Status post total abdominal hysterectomy. 4. Morbid obesity. 5. Acute kidney injury. 6. Bacteremia with blood cultures on 12/14/2016 grew coagulase-negative staph species consistent wi th contaminant and bacteroid fragilis. PLAN: The patient remains stable. We will continue her on current antimicrobials, await for final cultures. Dictated By: JOSE TRUONG MILLING MACHINE OPERATOR for LUIS DOMÍNGUEZ MD NI/NTS Conf#: [id number] DID#: [id number]
[2016-12-23] VITALS (12 sets, daily range): BP systolic 123–167; BP diastolic 71–88; PULSE 75–83; RESP 17–18
[2016-12-23] MEDS: ACCU-CHEK XX SCH (02:00)
[2016-12-23] MEDS: OXYCODONE/ACETAMINOPHEN (5/325) TAB PO PRN ×6 (02:04→20:49)
[2016-12-23] MEDS: PIPER-TAZO 3.375 GM IV (PMX) 100 ML IVPB SCH ×3 (05:17→20:49)
[2016-12-23 08:21] LABS: ADD SCAN DIFF NO
[2016-12-23 08:29] LABS: BASOPHILS % 0.3 % (0.0-2.0); EOSINOPHILS # 0.2 10^3/ul (0.0-0.5); EOSINOPHILS % 1.4 % (0.0-7.0); HEMATOCRIT 30.1 % (37.0-47.0); HEMOGLOBIN 9.6 g/dl (12.0-16.0); LYMPHOCYTES # 1.4 10^3/ul (0.8-2.9); LYMPHOCYTES % 10.4 % (15.0-51.0); MEAN CORPUSCULAR HEMOGLOBIN 29.6 pg (29.0-33.0); MEAN CORPUSCULAR HGB CONC 31.9 g/dl (32.0-37.0); MEAN CORPUSCULAR VOLUME 92.9 fl (82.0-101.0); MONOCYTE # 0.9 10^3/ul (0.3-0.9); MONOCYTES % 6.7 % (0.0-11.0); NEUTROPHIL # 10.6 10^3/ul (1.6-7.5); NEUTROPHILS % 80.4 % (39.0-77.0); PLATELET COUNT 527 10^3/UL (140-415); RED BLOOD COUNT 3.24 10^6/ul (4.20-5.40); RED CELL DISTRIBUTION WIDTH 15.8 % (11.5-14.5); WHITE BLOOD COUNT 13.1 10^3/ul (4.8-10.8)
[2016-12-23 09:02] LABS: PHOSPHORUS 6.6 mg/dl (2.5-4.9)
[2016-12-23 09:03] LABS: MAGNESIUM 1.5 mg/dl (1.7-2.5)
[2016-12-23 09:15] LABS: ALBUMIN 2.5 g/dl (3.3-4.9)
[2016-12-23 09:16] LABS: POTASSIUM 3.4 mmol/L (3.5-5.1)
[2016-12-23 09:18] LABS: ALBUMIN/GLOBULIN RATIO 0.73; BILIRUBIN,INDIRECT 0.4 mg/dl (0-1.1); BILIRUBIN,TOTAL 0.4 mg/dl (0.2-1.3); CREATININE 1.44 mg/dl (0.44-1.00); TOTAL PROTEIN 5.9 g/dl (6.1-8.1)
[2016-12-23 09:19] LABS: CALCIUM 8.1 mg/dl (8.4-10.2)
[2016-12-23] MEDS: DOCUSATE SODIUM 100 MG CAP PO SCH ×3 (09:28→20:49)
[2016-12-23] MEDS: FAMOTIDINE 20 MG TAB PO SCH (09:28)
--- NOTE | 2016-12-23 10:30 | PN ---
Date/Time of Note Date/Time of Note DATE: 12/23/16 TIME: 10:25 Assessment/Plan Lines/Catheters IV Catheter Type (from Nrsg): Saline Lock Teague in Place (from Nrsg): No Assessment/Plan Chief Complaint/Hosp Course POST OP DAY 13 Problems: Assessment/Plan CONTINUE WITH PRESENT MANAGEMENT Subjective 24 Hr Interval Summary FEELS A LOT BETTER MINIMAL LOWER ABDOMINAL PAIN GOOD DRAINAGE FROM TUBING Exam/Review of Systems Vital Signs Vitals Vital Signs Date Time Temp Pulse Resp B/P Pulse Ox O2 Delivery O2 Flow Rate FiO2 12/23/16 08:36 75 12/23/16 07:38 98.1 18 145/78 91 12/21/16 21:47 Nasal Cannula 2.0 Intake and Output 12/22/16 12/22/16 12/23/16 15:00 23:00 07:00 Intake Total 500 ml 350 ml Output Total 30 ml Balance 470 ml 350 ml Exam Free Text/Dictation AFIBRILE VITAL SIGN STABLE LUNGS CLEAR ABDOMEN SOFT NO TENDERNESS EXTREMITIES NO CALF TENDERNESS Results Result Diagram: 12/23/16 0640 12/23/16 0640 NAVEED CLARKE MD Dec 23, 2016 10:30
[2016-12-23] MEDS ORDERED: POTASSIUM CHLORIDE (SR) 20 MEQ TAB PO STA (11:58)
[2016-12-23] MEDS ORDERED: MAGNESIUM SULFATE 2 GM/50 ML 50 ML IVPB SCH (12:00)
--- NOTE | 2016-12-23 12:23 | PN ---
Date/Time of Note Date/Time of Note DATE: 12/23/16 TIME: 11:59 Assessment/Plan VTE Prophylaxis VTE Prophylaxis Intervention: SCD's Lines/Catheters IV Catheter Type (from Nrs): Saline Lock Urinary Cath still in place: No Assessment/Plan Assessment/Plan 41-year-old female: 1. SIRS/sepsis, tachycardia, bandemia, leukocytosis, and a blood culture positive for bacteroides and coagulase-negative Staph. S/p total abdominal hysterectomy and lysis of adhesions almost 2 weeks ago. Afebrile, WBC keeps trending down s/p IR drainage of pelvic fluid collection and placement drain POD#2 and also with fluid pocket small under liver Minimal RUQ discomfort, much less abdominal pain. Tolerating po Continue Zosyn per ID 2. Acute kidney injury thought secondary to sepsis. Renal US was within normal limits. Renal function improving, with creat 1.47 3. Acute on chronic anemia, s/p 2 units pRBC. Hb stable, agree with supplemental Ferrous sulfate Prophylaxis: SCDs for DVT prophylaxis, Pepcid for GI prophylaxis Disposition: s/p IR drain in place. Continue IV antibiotics and follow up further new recommendations from DEPUTY DIRECTOR OF FINANCE. Subjective 24 Hr Interval Summary Free Text/Dictation Patient doing well today, with ongoing drainage from pelvic drain Afebrile and stable Tolerating po well Exam/Review of Systems Vital Signs Vitals Vital Signs Date Time Temp Pulse Resp B/P Pulse Ox O2 Delivery O2 Flow Rate FiO2 12/23/16 11:53 98.4 79 18 144/78 94 12/21/16 21:47 Nasal Cannula 2.0 Intake and Output 12/22/16 12/22/16 12/23/16 15:00 23:00 07:00 Intake Total 500 ml 350 ml Output Total 30 ml Balance 470 ml 350 ml Exam Constitutional: alert, oriented, well developed Respiratory: clear to auscultation, normal air movement Cardiovascular: nl pulses, regular rate and rhythm Gastrointestinal: non-tender, soft Musculoskeletal: nl extremities to inspection Extremities: normal pulses, other (no edema, clubbing or cyanosis) Neurological: UPSETTING MACHINE OPERATOR II-XII intact, nl mental status, nl speech, nl strength Results Result Diagram: 12/23/16 0640 12/23/16 0640 Results 24 hrs Laboratory Tests Test 12/23/16 06:40 White Blood Count 13.1 H Red Blood Count 3.24 L Hemoglobin 9.6 L Hematocrit 30.1 L Mean Corpuscular Volume 92.9 Mean Corpuscular Hemoglobin 29.6 Mean Corpuscular Hemoglobin Concent 31.9 L Red Cell Distribution Width 15.8 H Platelet Count 527 H Mean Platelet Volume 10.0 Neutrophils % 80.4 H Lymphocytes % 10.4 L Monocytes % 6.7 Eosinophils % 1.4 Basophils % 0.3 Nucleated Red Blood Cells % 0.0 Neutrophils # 10.6 H Lymphocytes # 1.4 Monocytes # 0.9 Eosinophils # 0.2 Basophils # 0.0 Nucleated Red Blood Cells # 0.0 Sodium Level 138 Potassium Level 3.4 L Chloride Level 101 Carbon Dioxide Level 26 Anion Gap 14 Blood Urea Nitrogen 10 Creatinine 1.44 H Glucose Level 92 Calcium Level 8.1 L Phosphorus Level 6.6 H Magnesium Level 1.5 L Total Bilirubin 0.4 Direct Bilirubin 0.00 Indirect Bilirubin 0.4 Aspartate Amino Transf (AST/SGOT) 55 H Alanine Aminotransferase (ALT/SGPT) 64 Alkaline Phosphatase 212 H Total Protein 5.9 L Albumin 2.5 L Globulin 3.40 H Albumin/Globulin Ratio 0.73 Medications Medications Current Medications Oxycodone/ Acetaminophen (Percocet (5/ 325)) 1 tab Q4H PRN PO PAIN Last administered on 12/21/16 15:25; Admin Dose 1 TAB; Start 12/14/16 at 23:30 Oxycodone/ Acetaminophen (Percocet (5/ 325)) 2 tab Q3H PRN PO SEVERE PAIN Last administered on 12/23/16 09:28; Admin Dose 2 TAB; Start 12/14/16 at 23:30 Acetaminophen (Tylenol Tab) 650 mg Q6H PRN PO PAIN AND OR ELEVATED TEMP Last administered on 12/17/16 12:53; Admin Dose 650 MG; Start 12/14/16 at 23:30 Zolpidem Tartrate (Ambien) 10 mg HS PRN PO INSOMNIA Last administered on 20:56; Admin Dose 10 MG; Start 12/14/16 at 23:30 Ondansetron HCl (Zofran Inj) 4 mg Q4H PRN IV NAUSEA AND/OR VOMITING; Start 12/14 at 23:30 Diagnostic Test (Pha) (Accu-Chek) 1 ea 02 XX Last administered on 12/19/16 02: 44; Admin Dose 1 EA; Start 12/16/16 at 02:00 Miscellaneous Information 1 ea NOTE XX ; Start 12/15/16 at 07:00 Glucose (Glutose) 15 gm Q15M PRN PO DECREASED GLUCOSE; Start 12/15/16 at 07:00 Glucose (Glutose) 22.5 gm Q15M PRN PO DECREASED GLUCOSE; Start 12/15/16 at 07:00 Dextrose (D50w Syringe) 25 ml Q15M PRN IV DECREASED GLUCOSE; Start 12/15/16 at 07:00 Dextrose (D50w Syringe) 50 ml Q15M PRN IV DECREASED GLUCOSE; Start 12/15/16 at 07:00 Glucagon (Glucagen) 1 mg Q15M PRN IM DECREASED GLUCOSE; Start 12/15/16 at 07:00 Glucose (Glutose) 15 gm Q15M PRN BUCCAL DECREASED GLUCOSE; Start 12/15/16 at 07: 00 Docusate Sodium (Colace) 100 mg TID PO Last administered on 12/23/16 09:28; Admin Dose 100 MG; Start 12/15/16 at 13:00 Famotidine (Pepcid) 20 mg DAILY PO Last administered on 12/23/16 09:28; Admin Dose 20 MG; Start 12/18/16 at 09:00 Magnesium Hydroxide 30 ml 30 ml DAILY PRN PO CONSTIPATION Last administered on 12/18/16 21:17; Admin Dose 30 ML; Start 12/18/16 at 19:30 Piperacillin Sod/ Tazobactam Sod (Zosyn 3.375gm/ 100 ml (Pmx)) 100 ml @ 100 mls /hr Q8 IVPB Last administered on 12/23/16 05:17; Admin Dose 100 MLS/HR; Start 12/22/16 at 14:00 MEERA PERAZA Dec 23, 2016 12:09
--- NOTE | 2016-12-23 14:03 | CONS ---
Date/Time of Note Date/Time of Note DATE: 12/23/16 TIME: 14:00 Assessment/Plan Assessment/Plan Chief Complaint/Hosp Course SUBJECTIVE: The patient is alert, lying comfortably in bed MICROBIOLOGY: Abdominal fluid cultures growing GNR. ANTIMICROBIALS: Zosyn. PHYSICAL EXAMINATION: GENERAL: This is a morbidly obese, middle-aged woman who is alert, in no distress. HEENT: Head atraumatic, normocephalic. Sclerae anicteric. Buccal mucosa dry. NECK: Supple. CHEST: Rise symmetrical. Breath sounds diminished. HEART: S1, S2. ABDOMEN: Obese, soft, bowel tones present. EXTREMITIES: Without cyanosis. ASSESSMENT: 1. Systemic inflammatory response syndrome with persistent leukocytosis, white blood cell count tracing down. 2. Postoperative intraabdominal abscess, status post CT-guided drainage with catheter placement. 3. Status post total abdominal hysterectomy. 4. Morbid obesity. 5. Acute kidney injury. 6. Bacteremia with blood cultures on 12/14/2016 grew coagulase-negative staph species consistent with contaminant and bacteroid fragilis. PLAN: The patient remains stable. WBC slowly decreasing, continue abx, f/u aspirated fluid cx, surgical rec-s DW staff Problems: Consultation Date/Type/Reason Admit Date/Time Dec 14, 2016 at 19:07 Initial Consult Date 12/16/16 Type of Consultation: ID Referring Provider: NAVEED CLARKE MD Exam/Review of Systems Vital Signs Vitals Vital Signs Date Time Temp Pulse Resp B/P Pulse Ox O2 Delivery O2 Flow Rate FiO2 12/23/16 12:19 83 12/23/16 11:53 98.4 18 144/78 94 12/21/16 21:47 Nasal Cannula 2.0 Intake and Output 12/22/16 12/22/16 12/23/16 15:00 23:00 07:00 Intake Total 500 ml 350 ml Output Total 30 ml Balance 470 ml 350 ml Results Result Diagram: 12/23/16 0640 12/23/16 0640 Results 24 hrs Laboratory Tests Test 12/23/16 06:40 White Blood Count 13.1 H Red Blood Count 3.24 L Hemoglobin 9.6 L Hematocrit 30.1 L Mean Corpuscular Volume 92.9 Mean Corpuscular Hemoglobin 29.6 Mean Corpuscular Hemoglobin Concent 31.9 L Red Cell Distribution Width 15.8 H Platelet Count 527 H Mean Platelet Volume 10.0 Neutrophils % 80.4 H Lymphocytes % 10.4 L Monocytes % 6.7 Eosinophils % 1.4 Basophils % 0.3 Nucleated Red Blood Cells % 0.0 Neutrophils # 10.6 H Lymphocytes # 1.4 Monocytes # 0.9 Eosinophils # 0.2 Basophils # 0.0 Nucleated Red Blood Cells # 0.0 Sodium Level 138 Potassium Level 3.4 L Chloride Level 101 Carbon Dioxide Level 26 Anion Gap 14 Blood Urea Nitrogen 10 Creatinine 1.44 H Glucose Level 92 Calcium Level 8.1 L Phosphorus Level 6.6 H Magnesium Level 1.5 L Total Bilirubin 0.4 Direct Bilirubin 0.00 Indirect Bilirubin 0.4 Aspartate Amino Transf (AST/SGOT) 55 H Alanine Aminotransferase (ALT/SGPT) 64 Alkaline Phosphatase 212 H Total Protein 5.9 L Albumin 2.5 L Globulin 3.40 H Albumin/Globulin Ratio 0.73 Medications Medications Current Medications Oxycodone/ Acetaminophen (Percocet (5/ 325)) 1 tab Q4H PRN PO PAIN Last administered on 12/21/16 15:25; Admin Dose 1 TAB; Start 12/14/16 at 23:30 Oxycodone/ Acetaminophen (Percocet (5/ 325)) 2 tab Q3H PRN PO SEVERE PAIN Last administered on 12/23/16 12:48; Admin Dose 2 TAB; Start 12/14/16 at 23:30 Acetaminophen (Tylenol Tab) 650 mg Q6H PRN PO PAIN AND OR ELEVATED TEMP Last administered on 12/17/16 12:53; Admin Dose 650 MG; Start 12/14/16 at 23:30 Zolpidem Tartrate (Ambien) 10 mg HS PRN PO INSOMNIA Last administered on 20:56; Admin Dose 10 MG; Start 12/14/16 at 23:30 Ondansetron HCl (Zofran Inj) 4 mg Q4H PRN IV NAUSEA AND/OR VOMITING; Start 12/14 at 23:30 Diagnostic Test (Pha) (Accu-Chek) 1 ea 02 XX Last administered on 12/19/16 02: 44; Admin Dose 1 EA; Start 12/16/16 at 02:00 Miscellaneous Information 1 ea NOTE XX ; Start 12/15/16 at 07:00 Glucose (Glutose) 15 gm Q15M PRN PO DECREASED GLUCOSE; Start 12/15/16 at 07:00 Glucose (Glutose) 22.5 gm Q15M PRN PO DECREASED GLUCOSE; Start 12/15/16 at 07:00 Dextrose (D50w Syringe) 25 ml Q15M PRN IV DECREASED GLUCOSE; Start 12/15/16 at 07:00 Dextrose (D50w Syringe) 50 ml Q15M PRN IV DECREASED GLUCOSE; Start 12/15/16 at 07:00 Glucagon (Glucagen) 1 mg Q15M PRN IM DECREASED GLUCOSE; Start 12/15/16 at 07:00 Glucose (Glutose) 15 gm Q15M PRN BUCCAL DECREASED GLUCOSE; Start 12/15/16 at 07: 00 Docusate Sodium (Colace) 100 mg TID PO Last administered on 12/23/16 12:40; Admin Dose 100 MG; Start 12/15/16 at 13:00 Famotidine (Pepcid) 20 mg DAILY PO Last administered on 12/23/16 09:28; Admin Dose 20 MG; Start 12/18/16 at 09:00 Magnesium Hydroxide 30 ml 30 ml DAILY PRN PO CONSTIPATION Last administered on 12/18/16 21:17; Admin Dose 30 ML; Start 12/18/16 at 19:30 Piperacillin Sod/ Tazobactam Sod (Zosyn 3.375gm/ 100 ml (Pmx)) 100 ml @ 100 mls /hr Q8 IVPB Last administered on 12/23/16 05:17; Admin Dose 100 MLS/HR; Start 12/22/16 at 14:00 JOSE TRUONG NP Dec 23, 2016 14:03
[2016-12-24] VITALS (12 sets, daily range): BP systolic 135–153; BP diastolic 67–82; PULSE 72–87; RESP 16–19
[2016-12-24] MEDS: OXYCODONE/ACETAMINOPHEN (5/325) TAB PO PRN ×5 (01:03→20:12)
[2016-12-24] MEDS: ACCU-CHEK XX SCH (02:00)
[2016-12-24] MEDS: PIPER-TAZO 3.375 GM IV (PMX) 100 ML IVPB SCH ×3 (04:49→20:57)
[2016-12-24 07:43] LABS: ADD SCAN DIFF NO
[2016-12-24 07:48] LABS: BASOPHILS % 0.2 % (0.0-2.0); EOSINOPHILS # 0.2 10^3/ul (0.0-0.5); EOSINOPHILS % 1.3 % (0.0-7.0); HEMOGLOBIN 9.6 g/dl (12.0-16.0); LYMPHOCYTES # 1.3 10^3/ul (0.8-2.9); LYMPHOCYTES % 9.3 % (15.0-51.0); MEAN CORPUSCULAR HEMOGLOBIN 29.8 pg (29.0-33.0); MEAN CORPUSCULAR VOLUME 93.2 fl (82.0-101.0); MEAN PLATELET VOLUME 10.1 fl (7.4-10.4); MONOCYTE # 0.9 10^3/ul (0.3-0.9); MONOCYTES % 6.2 % (0.0-11.0); NEUTROPHIL # 11.2 10^3/ul (1.6-7.5); NEUTROPHILS % 82.4 % (39.0-77.0); PLATELET COUNT 592 10^3/UL (140-415); RED BLOOD COUNT 3.22 10^6/ul (4.20-5.40); RED CELL DISTRIBUTION WIDTH 15.6 % (11.5-14.5); WHITE BLOOD COUNT 13.6 10^3/ul (4.8-10.8)
[2016-12-24 08:06] LABS: POTASSIUM 3.7 mmol/L (3.5-5.1)
[2016-12-24 08:07] LABS: MAGNESIUM 1.8 mg/dl (1.7-2.5); PHOSPHORUS 5.9 mg/dl (2.5-4.9)
[2016-12-24 08:09] LABS: CREATININE 1.43 mg/dl (0.44-1.00)
[2016-12-24 08:10] LABS: CALCIUM 8.3 mg/dl (8.4-10.2)
[2016-12-24] MEDS: FAMOTIDINE 20 MG TAB PO SCH (09:06)
[2016-12-24] MEDS: DOCUSATE SODIUM 100 MG CAP PO SCH ×3 (09:06→20:57)
[2016-12-24] MEDS ORDERED: POTASSIUM CHLORIDE (SR) 20 MEQ TAB PO STA (14:23)
--- NOTE | 2016-12-24 14:23 | PN ---
Date/Time of Note Date/Time of Note DATE: 12/24/16 TIME: 14:09 Assessment/Plan VTE Prophylaxis VTE Prophylaxis Intervention: SCD's Lines/Catheters IV Catheter Type (from [facility]): Saline Lock Urinary Cath still in place: No Assessment/Plan Assessment/Plan 41-year-old female: 1. SIRS/sepsis, tachycardia, bandemia, leukocytosis, and a blood culture positive for bacteroides and coagulase-negative Staph. S/p total abdominal hysterectomy and lysis of adhesions almost 2 weeks ago. Minimal RUQ discomfort, much less abdominal pain. Afebrile, WBC stays at 13K s/p IR drainage of pelvic fluid collection and placement drain POD#3 with cx growing E coli and also with there was a small fluid pocket under liver. Follow up Liver US pending today. Tolerating po Continue Zosyn per ID for now 2. Acute kidney injury thought secondary to sepsis. Renal US was within normal limits. Renal function improving, with creat stable at 1.43 Replete K and mag today 3. Acute on chronic anemia, s/p 2 units pRBC. Hb stable, agree with supplemental Ferrous sulfate Prophylaxis: SCDs for DVT prophylaxis, Pepcid for GI prophylaxis Disposition: s/p IR drain in place. Continue IV antibiotics and follow up further new recommendations from ELEVATOR OPERATOR. Subjective 24 Hr Interval Summary Free Text/Dictation WBC remains at 13K Follow up liver US pending Patient with no complaints today, just minimal discomfort RUQ Exam/Review of Systems Vital Signs Vitals Vital Signs Date Time Temp Pulse Resp B/P Pulse Ox O2 Delivery O2 Flow Rate FiO2 12/24/16 12:15 72 12/24/16 11:44 98.6 19 141/82 95 12/21/16 21:47 Nasal Cannula 2.0 Intake and Output 12/23/16 12/23/16 12/24/16 15:00 23:00 07:00 Intake Total 920 ml 100 ml Output Total 55 ml 10 ml Balance 865 ml 90 ml Exam Constitutional: alert, obese, oriented, well developed Gastrointestinal: other (pelvic drain in place ), soft, tender (minimal RUQ discomfort ) Musculoskeletal: nl extremities to inspection Extremities: normal pulses, other (no edema, clubbing or cyanosis ) Neurological: PART TIME RECEPTIONIST II-XII intact, nl mental status, nl speech, nl strength Results Result Diagram: 12/24/16 0555 12/24/16 0555 Results 24 hrs Laboratory Tests Test 12/24/16 05:55 White Blood Count 13.6 H Red Blood Count 3.22 L Hemoglobin 9.6 L Hematocrit 30.0 L Mean Corpuscular Volume 93.2 Mean Corpuscular Hemoglobin 29.8 Mean Corpuscular Hemoglobin Concent 32.0 Red Cell Distribution Width 15.6 H Platelet Count 592 H Mean Platelet Volume 10.1 Neutrophils % 82.4 H Lymphocytes % 9.3 L Monocytes % 6.2 Eosinophils % 1.3 Basophils % 0.2 Nucleated Red Blood Cells % 0.0 Neutrophils # 11.2 H Lymphocytes # 1.3 Monocytes # 0.9 Eosinophils # 0.2 Basophils # 0.0 Nucleated Red Blood Cells # 0.0 Sodium Level 140 Potassium Level 3.7 Chloride Level 101 Carbon Dioxide Level 27 Anion Gap 16 Blood Urea Nitrogen 10 Creatinine 1.43 H Glucose Level 103 Calcium Level 8.3 L Phosphorus Level 5.9 H Magnesium Level 1.8 Medications Medications Current Medications Oxycodone/ Acetaminophen (Percocet (5/ 325)) 1 tab Q4H PRN PO PAIN Last administered on 12/21/16 15:25; Admin Dose 1 TAB; Start 12/14/16 at 23:30 Oxycodone/ Acetaminophen (Percocet (5/ 325)) 2 tab Q3H PRN PO SEVERE PAIN Last administered on 12/24/16 09:06; Admin Dose 2 TAB; Start 12/14/16 at 23:30 Acetaminophen (Tylenol Tab) 650 mg Q6H PRN PO PAIN AND OR ELEVATED TEMP Last administered on 12/17/16 12:53; Admin Dose 650 MG; Start 12/14/16 at 23:30 Zolpidem Tartrate (Ambien) 10 mg HS PRN PO INSOMNIA Last administered on 20:56; Admin Dose 10 MG; Start 12/14/16 at 23:30 Ondansetron HCl (Zofran Inj) 4 mg Q4H PRN IV NAUSEA AND/OR VOMITING; Start 12/14 at 23:30 Diagnostic Test (Pha) (Accu-Chek) 1 ea 02 XX Last administered on 12/19/16 02: 44; Admin Dose 1 EA; Start 12/16/16 at 02:00 Miscellaneous Information 1 ea NOTE XX ; Start 12/15/16 at 07:00 Glucose (Glutose) 15 gm Q15M PRN PO DECREASED GLUCOSE; Start 12/15/16 at 07:00 Glucose (Glutose) 22.5 gm Q15M PRN PO DECREASED GLUCOSE; Start 12/15/16 at 07:00 Dextrose (D50w Syringe) 25 ml Q15M PRN IV DECREASED GLUCOSE; Start 12/15/16 at 07:00 Dextrose (D50w Syringe) 50 ml Q15M PRN IV DECREASED GLUCOSE; Start 12/15/16 at 07:00 Glucagon (Glucagen) 1 mg Q15M PRN IM DECREASED GLUCOSE; Start 12/15/16 at 07:00 Glucose (Glutose) 15 gm Q15M PRN BUCCAL DECREASED GLUCOSE; Start 12/15/16 at 07: 00 Docusate Sodium (Colace) 100 mg TID PO Last administered on 12/24/16 09:06; Admin Dose 100 MG; Start 12/15/16 at 13:00 Famotidine (Pepcid) 20 mg DAILY PO Last administered on 12/24/16 09:06; Admin Dose 20 MG; Start 12/18/16 at 09:00 Magnesium Hydroxide 30 ml 30 ml DAILY PRN PO CONSTIPATION Last administered on 12/18/16 21:17; Admin Dose 30 ML; Start 12/18/16 at 19:30 Piperacillin Sod/ Tazobactam Sod (Zosyn 3.375gm/ 100 ml (Pmx)) 100 ml @ 100 mls /hr Q8 IVPB Last administered on 12/24/16 13:43; Admin Dose 100 MLS/HR; Start 12/22/16 at 14:00 MEERA PERAZA Dec 24, 2016 14:20
[2016-12-24] MEDS ORDERED: MAGNESIUM SULFATE 2 GM/50 ML 50 ML IVPB ONE (14:30)
--- NOTE | 2016-12-24 16:06 | PN ---
DATE: 12/24/2016 INFECTIOUS DISEASE PROGRESS NOTE SUBJECTIVE: The patient is lying comfortably in bed. She had been n.p.o. for abdominal ultrasound. No fevers. WBC 13.6, platelets 592, neutrophils 82.4. No bands. BUN 10, creatinine 1.43. MICROBIOLOGY: Abdominal drainage culture growing E. coli resistant to Ancef. Anaerobic culture pen fito. ANTIMICROBIALS: The patient is on Zosyn. INDWELLINGS: Left abdominal drainage catheter. PHYSICAL EXAMINATION: GENERAL: This is an obese, well-developed, middle-aged woman who is awake, in no distress. HEENT: Head atraumatic, normocephalic. Sclerae anicteric. Buccal mucosa dry. NECK: Supple. CHEST: Rise symmetrical. Breath sounds diminished to bases. HEART: S1, S2. ABDOMEN: Obese, soft, bowel tones present. EXTREMITIES: Without cyanosis. ASSESSMENT: 1. Systemic inflammatory response syndrome with persistent leukocytosis secondary to #2. 2. Postoperative intraabdominal abscess, status post CT-guided drainage with drainage catheter plac ement. 3. Morbid obesity. 4. Status post recent total abdominal hysterectomy. 5. Bacteroid fragilis and coagulase-negative staph bacteremia secondary to the first one. 6. Questionable right liver lobe abscess. PLAN: The patient remains stable pending ultrasound of the abdomen. She is on appropriate antimicr obials. Await anaerobic cultures. Surgery follows. Dictated By: JOSE TRUONG DESIGN/ANIMATION INSTRUCTOR for LUIS DOMÍNGUEZ MD NI/NTS Conf#: [id number] DID#: [id number]
--- NOTE | 2016-12-24 17:16 | RADRPT ---
PROCEDURE: US Abdomen (right upper quadrant). CLINICAL INDICATION: Right upper quadrant abdomen pain. TECHNIQUE: Multiple real-time longitudinal and transverse images of the right upper quadrant of th e abdomen were acquired utilizing a curved array transducer. Images were reviewed on a high-resoluti on PACS workstation. COMPARISON: None FINDINGS: The liver is mildly enlarged and normal in echogenicity. There is no focal hepatic lesion. Color Doppler and pulsed Doppler sonography demonstrate normal a ntegrade flow in the portal vein. The gallbladder is normal with no stones or wall thickening. There is no pericholecystic fluid hilda ection. The bile ducts are normal with the common bile duct measuring 3.8 mm in diameter. The visualized portions of the pancreas are unremarkable with obscuration of the tail of the pancrea s. There is no ascites. There is a small right pleural effusion. The right kidney measures 12.6 cm. There is normal echogenicity of the right kidney. There is no perinephric fluid collection. No hydronephrosis, mass, or calculus is seen. IMPRESSION: 1. Mild hepatomegaly. 2. Small right pleural effusion. 3. Otherwise normal right upper quadrant abdomen ultrasound. RPTAT: QQ .Richie Payne MD, MD Date Time Electronically viewed and signed by .Richie Payne MD, on 12/24/2016 17:16 .R/
[2016-12-25] VITALS (13 sets, daily range): BP systolic 129–167; BP diastolic 66–79; PULSE 76–86; RESP 16–18
[2016-12-25] MEDS: ACCU-CHEK XX SCH (01:30)
[2016-12-25] MEDS: OXYCODONE/ACETAMINOPHEN (5/325) TAB PO PRN ×5 (01:31→19:44)
[2016-12-25] MEDS: PIPER-TAZO 3.375 GM IV (PMX) 100 ML IVPB SCH ×2 (05:35→14:01)
[2016-12-25 08:07] LABS: ADD SCAN DIFF NO
[2016-12-25 08:13] LABS: BASOPHIL # 0.1 10^3/ul (0.0-0.1); BASOPHILS % 0.4 % (0.0-2.0); EOSINOPHILS # 0.1 10^3/ul (0.0-0.5); HEMATOCRIT 32.5 % (37.0-47.0); HEMOGLOBIN 10.2 g/dl (12.0-16.0); LYMPHOCYTES # 1.3 10^3/ul (0.8-2.9); LYMPHOCYTES % 9.4 % (15.0-51.0); MEAN CORPUSCULAR HEMOGLOBIN 29.4 pg (29.0-33.0); MEAN CORPUSCULAR HGB CONC 31.4 g/dl (32.0-37.0); MEAN CORPUSCULAR VOLUME 93.7 fl (82.0-101.0); MONOCYTE # 0.9 10^3/ul (0.3-0.9); MONOCYTES % 6.9 % (0.0-11.0); NEUTROPHIL # 11.1 10^3/ul (1.6-7.5); NEUTROPHILS % 81.6 % (39.0-77.0); PLATELET COUNT 643 10^3/UL (140-415); RED BLOOD COUNT 3.47 10^6/ul (4.20-5.40); RED CELL DISTRIBUTION WIDTH 15.5 % (11.5-14.5); WHITE BLOOD COUNT 13.5 10^3/ul (4.8-10.8)
[2016-12-25 08:33] LABS: ALBUMIN 2.8 g/dl (3.3-4.9)
[2016-12-25 08:34] LABS: POTASSIUM 4.2 mmol/L (3.5-5.1)
[2016-12-25 08:36] LABS: BILIRUBIN,INDIRECT 0.3 mg/dl (0-1.1); BILIRUBIN,TOTAL 0.3 mg/dl (0.2-1.3); CREATININE 1.39 mg/dl (0.44-1.00)
[2016-12-25 08:37] LABS: ALBUMIN/GLOBULIN RATIO 0.68; CALCIUM 8.6 mg/dl (8.4-10.2); TOTAL PROTEIN 6.9 g/dl (6.1-8.1)
[2016-12-25 08:51] LABS: PHOSPHORUS 5.8 mg/dl (2.5-4.9)
[2016-12-25] MEDS: FAMOTIDINE 20 MG TAB PO SCH (08:58)
[2016-12-25] MEDS: DOCUSATE SODIUM 100 MG CAP PO SCH ×3 (08:58→21:17)
--- NOTE | 2016-12-25 12:42 | RADRPT ---
PROCEDURE: Fluoroscopic guided catheter removal. CLINICAL INDICATION: Drainage catheter no longer required. TECHNIQUE: Prior to the procedure, informed consent was obtained. Risks including bleeding and inf ection, were explained to the patient. The patient understood and was willing to proceed. A procedur al pause was performed. The patient's name, date of , and procedure to be performed were verifi ed. The skin sutures were removed. The existing drainage catheter in the pelvis was cut and removed wi th fluoroscopic guidance. A postprocedure image was obtained. A total of 0.1 minutes of fluoroscopy time was used. COMPARISON: No prior studies are available for comparison. FINDINGS: The postprocedure image demonstrates complete removal of the catheter. IMPRESSION: 1. Fluoroscopic guided removal of pelvic drainage catheter. RPTAT: QQ .Richie Payne MD, MD Date Time Electronically viewed and signed by .Richie Payne MD, on 12/25/2016 12:42 .R/
[2016-12-25] MEDS ORDERED: BARIUM SULF 2% 450 ML BTL (BERRY SMOOTHIE) PO ONE (13:30)
[2016-12-25] MEDS ORDERED: IOHEXOL 300MG/ML 30 ML BTL ONE (14:32)
--- NOTE | 2016-12-25 14:53 | PN ---
DATE: 12/25/2016 INFECTIOUS DISEASE PROGRESS NOTE SUBJECTIVE: Patient is alert, ambulating in the room, looks much better and feels much better. Her drain was discontinued. MICROBIOLOGY: Intra-abdominal abscess culture grew E. coli and Bacteroides fragilis. Blood culture on admission grew coagulase-negative staph and Bacteroides fragilis. DIAGNOSTICS: Liver ultrasound revealed mild hepatomegaly. ANTIMICROBIALS: Patient is on Zosyn. PHYSICAL EXAMINATION: GENERAL: This is an obese, well-developed, middle-aged woman, who is awake, in no distress . HEENT: Head atraumatic, normocephalic. Sclerae anicteric. Buccal mucosa pink. NECK: Supple. CHEST: Chest rise is symmetrical. Breath sounds clear, diminished to the bases. HEART: S1, S2. ABDOMEN: Soft, bowel tones present. EXTREMITIES: Without cyanosis or edema. ASSESSMENT: 1. Status post sepsis with bacteremia secondary to intraabdominal abscess. 2. Status post CT-guided intra-abdominal drainage aspiration, with drainage catheter being removed today. 3. Status post recent total abdominal hysterectomy. 4. Obesity. 5. Systemic inflammatory response syndrome with persistent leukocytosis. Stable. PLAN: The patient remains stable, clinically improving. She still has leukocytosis that is stable. Her renal function is also stable today, creatinine 1.39. We are going to discontinue Zosyn and s tart her on Cipro and Flagyl to cover Bacteroides and E. coli. Patient may need a repeat CT of the abdomen if leukocytosis persists. Above was discussed with Dr. Kaminski. Dictated By: JOSE TRUONG DAMPER WORKER for LUIS FORREST/DARSHAN Conf#: [id number] DID#: [id number]
--- NOTE | 2016-12-25 14:57 | PN ---
Date/Time of Note Date/Time of Note DATE: 12/24/16 TIME: 21:30 Assessment/Plan Lines/Catheters IV Catheter Type (from Nrsg): Saline Lock Teague in Place (from Nrsg): No Assessment/Plan Chief Complaint/Hosp Course POST OP DAY 14 Problems: Assessment/Plan POSSIBLE REMOVAL OF THE STENT TOMORROW BY THE RADIOLOGIST Subjective 24 Hr Interval Summary PATIENT FEELS GOOD ALMOST NO MORE PAIN MINIMAL DRAINING FROM TUBE Exam/Review of Systems Vital Signs Vitals Vital Signs Date Time Temp Pulse Resp B/P Pulse Ox O2 Delivery O2 Flow Rate FiO2 12/25/16 12:10 82 12/25/16 11:32 98.3 18 151/78 98 12/21/16 21:47 Nasal Cannula 2.0 Intake and Output 12/24/16 12/24/16 12/25/16 15:00 23:00 07:00 Intake Total 1870 ml 120 ml Output Total 10 ml Balance 1870 ml 110 ml Exam Free Text/Dictation AFIBRILE VITAL SIGN STABLE ABDOMEN SOFT INCISION DRY AND CLEAN EXTREMETIES NO CALF TENDERNESS Results Result Diagram: 12/25/16 0740 12/25/16 0740 NAVEED CLARKE MD Dec 25, 2016 14:57
--- NOTE | 2016-12-25 16:04 | PN ---
Date/Time of Note Date/Time of Note DATE: 12/25/16 TIME: 15:58 Assessment/Plan VTE Prophylaxis VTE Prophylaxis Intervention: SCD's Lines/Catheters IV [facility] Saline Lock Urinary Cath still in place: No Assessment/Plan Assessment/Plan 41-year-old female: 1. SIRS/sepsis, tachycardia, bandemia, leukocytosis, and a blood culture positive for bacteroides and coagulase-negative Staph, an pelvic abscess with E coli and bacteroides S/p total abdominal hysterectomy and lysis of adhesions almost 2 weeks ago. Minimal RUQ discomfort, much less abdominal pain. Afebrile, WBC stays at 13K s/p IR drainage of pelvic fluid collection and placement drain POD#4 with cx growing E coli and bacteroides Follow up Liver US wnl. WBC still up per ID request repeat CT a/p pending and depending on results with adjust d/c planning. Tolerating po well Continue Cipro and Flagyl. 2. Acute kidney injury thought secondary to sepsis. Renal US was within normal limits. Renal function improving, with creat stable at 1.39 3. Acute on chronic anemia, s/p 2 units pRBC. Hb stable, agree with supplemental Ferrous sulfate Prophylaxis: SCDs for DVT prophylaxis, Pepcid for GI prophylaxis Disposition: s/p IR drain removal today, CT abdo/pelvis to be repeated today and d/c planning pending results. Subjective 24 Hr Interval Summary Free Text/Dictation Patient feels better and drain was removed this AM by IR per Dr Man Per ID request repeating CT abdo/pelvis because WBC not trending down further. Renal function much better and patient tolerating po well Exam/Review of Systems Vital Signs Vitals Vital Signs Date Time Temp Pulse Resp B/P Pulse Ox O2 Delivery O2 Flow Rate FiO2 12/25/16 15:40 98.2 86 18 134/72 94 12/21/16 21:47 Nasal Cannula 2.0 Intake and Output 12/24/16 12/24/16 12/25/16 15:00 23:00 07:00 Intake Total 1870 ml 120 ml Output Total 10 ml Balance 1870 ml 110 ml Exam Constitutional: alert, oriented, well developed Respiratory: clear to auscultation, normal air movement Cardiovascular: nl pulses, regular rate and rhythm Gastrointestinal: non-tender, soft Musculoskeletal: nl extremities to inspection Extremities: normal pulses, other (no edema, clubbing or cyanosis ) Neurological: DB2 DEVELOPER II-XII intact, nl mental status, nl speech, nl strength Results Result Diagram: 12/25/16 0740 12/25/16 0740 Results 24 hrs Laboratory Tests Test 12/24/16 20:19 12/25/16 07:40 Bedside Glucose 95 White Blood Count 13.5 H Red Blood Count 3.47 L Hemoglobin 10.2 L Hematocrit 32.5 L Mean Corpuscular Volume 93.7 Mean Corpuscular Hemoglobin 29.4 Mean Corpuscular Hemoglobin Concent 31.4 L Red Cell Distribution Width 15.5 H Platelet Count 643 H Mean Platelet Volume 10.0 Neutrophils % 81.6 H Lymphocytes % 9.4 L Monocytes % 6.9 Eosinophils % 1.0 Basophils % 0.4 Nucleated Red Blood Cells % 0.0 Neutrophils # 11.1 H Lymphocytes # 1.3 Monocytes # 0.9 Eosinophils # 0.1 Basophils # 0.1 Nucleated Red Blood Cells # 0.0 Sodium Level 139 Potassium Level 4.2 Chloride Level 102 Carbon Dioxide Level 28 Anion Gap 13 Blood Urea Nitrogen 10 Creatinine 1.39 H Glucose Level 106 Calcium Level 8.6 Phosphorus Level 5.8 H Magnesium Level 2.0 Total Bilirubin 0.3 Direct Bilirubin 0.00 Indirect Bilirubin 0.3 Aspartate Amino Transf (AST/SGOT) 40 Alanine Aminotransferase (ALT/SGPT) 53 Alkaline Phosphatase 215 H Total Protein 6.9 Albumin 2.8 L Globulin 4.10 H Albumin/Globulin Ratio 0.68 Medications Medications Current Medications Oxycodone/ Acetaminophen (Percocet (5/ 325)) 1 tab Q4H PRN PO PAIN Last administered on 12/25/16 14:01; Admin Dose 1 TAB; Start 12/14/16 at 23:30 Oxycodone/ Acetaminophen (Percocet (5/ 325)) 2 tab Q3H PRN PO SEVERE PAIN Last administered on 12/24/16 09:06; Admin Dose 2 TAB; Start 12/14/16 at 23:30 Acetaminophen (Tylenol Tab) 650 mg Q6H PRN PO PAIN AND OR ELEVATED TEMP Last administered on 12/17/16 12:53; Admin Dose 650 MG; Start 12/14/16 at 23:30 Zolpidem Tartrate (Ambien) 10 mg HS PRN PO INSOMNIA Last administered on 20:56; Admin Dose 10 MG; Start 12/14/16 at 23:30 Ondansetron HCl (Zofran Inj) 4 mg Q4H PRN IV NAUSEA AND/OR VOMITING; Start 12/14 at 23:30 Diagnostic Test (Pha) (Accu-Chek) 1 ea 02 XX Last administered on 12/25/16 01: 30; Admin Dose 1 EA; Start 12/16/16 at 02:00 Miscellaneous Information 1 ea NOTE XX ; Start 12/15/16 at 07:00 Glucose (Glutose) 15 gm Q15M PRN PO DECREASED GLUCOSE; Start 12/15/16 at 07:00 Glucose (Glutose) 22.5 gm Q15M PRN PO DECREASED GLUCOSE; Start 12/15/16 at 07:00 Dextrose (D50w Syringe) 25 ml Q15M PRN IV DECREASED GLUCOSE; Start 12/15/16 at 07:00 Dextrose (D50w Syringe) 50 ml Q15M PRN IV DECREASED GLUCOSE; Start 12/15/16 at 07:00 Glucagon (Glucagen) 1 mg Q15M PRN IM DECREASED GLUCOSE; Start 12/15/16 at 07:00 Glucose (Glutose) 15 gm Q15M PRN BUCCAL DECREASED GLUCOSE; Start 12/15/16 at 07: 00 Docusate Sodium (Colace) 100 mg TID PO Last administered on 12/25/16 14:01; Admin Dose 100 MG; Start 12/15/16 at 13:00 Famotidine (Pepcid) 20 mg DAILY PO Last administered on 12/25/16 08:58; Admin Dose 20 MG; Start 12/18/16 at 09:00 Magnesium Hydroxide 30 ml 30 ml DAILY PRN PO CONSTIPATION Last administered on 12/18/16 21:17; Admin Dose 30 ML; Start 12/18/16 at 19:30 Ciprofloxacin/ Dextrose 200 ml @ 200 mls/hr Q12 IVPB ; Start 12/25/16 at 21:00 Metronidazole (Flagyl 500 Mg (Pmx)) 100 ml @ 100 mls/hr Q8 IVPB ; Start at 22:00 MEERA PERAZA Dec 25, 2016 16:04
--- NOTE | 2016-12-25 17:35 | PN ---
Date/Time of Note Date/Time of Note DATE: 12/25/16 TIME: 17:31 Assessment/Plan Lines/Catheters IV Catheter Type (from Nrs): Saline Lock Teague in Place (from Nrs): No Assessment/Plan Chief Complaint/Hosp Course POST OP DAY 15 Problems: Assessment/Plan ON CIPRO AND FLAGYL LAB REVIEWED Subjective 24 Hr Interval Summary PATIENT FEELS GOOD CULTURE AND SENSITIVITY NOTED Exam/Review of Systems Vital Signs Vitals Vital Signs Date Time Temp Pulse Resp B/P Pulse Ox O2 Delivery O2 Flow Rate FiO2 12/25/16 16:17 86 12/25/16 15:40 98.2 18 134/72 94 12/21/16 21:47 Nasal Cannula 2.0 Intake and Output 12/24/16 12/24/16 12/25/16 15:00 23:00 07:00 Intake Total 1870 ml 120 ml Output Total 10 ml Balance 1870 ml 110 ml Exam Free Text/Dictation AFIBRILE VITAL SIGN STABLE ABDOMEN SOFT WOUND DRY BOWEL SOUND GOOD EXTREMETIES NO CALF TNEDERNESS Results Result Diagram: 12/25/16 0740 12/25/16 0740 NAVEED CLARKE MD Dec 25, 2016 17:34
[2016-12-25] MEDS: CIPROFLOXACIN 400MG/D5W 200 ML IVPB SCH (21:17)
[2016-12-25] MEDS: ZOLPIDEM 5 MG TAB PO PRN (21:29)
[2016-12-25] MEDS: metroNIDAZOLE 500 MG/NS (PMX) 100 ML IVPB SCH (22:00)
[2016-12-26] VITALS (9 sets, daily range): BP systolic 113–134; BP diastolic 63–75; PULSE 77–87; RESP 16–18
[2016-12-26] MEDS: OXYCODONE/ACETAMINOPHEN (5/325) TAB PO PRN ×4 (01:12→13:36)
[2016-12-26] MEDS: ACCU-CHEK XX SCH (02:00)
[2016-12-26] MEDS: metroNIDAZOLE 500 MG/NS (PMX) 100 ML IVPB SCH ×2 (05:12→13:31)
--- NOTE | 2016-12-26 06:17 | RADRPT ---
PROCEDURE: CT of the abdomen and pelvis without contrast CLINICAL INDICATION: Abscess with recent drainage. Reevaluate. TECHNIQUE: Spiral CT images through the abdomen and pelvis after administration of oral but withou t the use of intravenous contrast as requested. The administered radiation dose is CTDI 21.56 and D LP 1394.62. One or more of the following dose reduction techniques were used: automated exposure con trol, adjustment of the mA and/or kV according to patient size, or use of iterative reconstruction t echnique. COMPARISON: 12/20/2016 FINDINGS: Again seen are right greater than left pleural effusions with associated compressive atelectasis. The gallbladder is mildly distended. Infrahepatic loculated fluid collection is again seen and daphney sures 4.4 x 3.4 cm, decreased compared with prior. Edema and fluid in the subcutaneous soft tissues of the flanks again seen. No definite focal lesions of the liver, spleen, adrenals, kidneys, or pa ncreas. Fluid collection in the left paracolic gutter is slightly changed in configuration but like ly overall unchanged in volume. Small area of probable fluid adjacent to small bowel loops in the l eft lateral abdomen appears similar to prior. The percutaneous catheter has been removed. The larg e complex pelvic collection is significantly decreased in size. Oral contrast has not yet reached p elvic small bowel loops or the majority of the colon. The exact margins of the residual collection difficult to identify but residual fluid may measure approximately 2.2 x 5.5 cm. Slight presacral stranding. Contrast is seen in the appendix, cecum, and multiple small bowel loops. Small area of fluid adjacent to the cecum and ascending colon is again seen. Air and fluid collection of the low midline anterior abdominal wall is again seen, measuring approximately 1.9 x 9.1 cm. Stranding of t he lower anterior abdominal wall is again seen. Minimal degenerative change of the spine. Small pro bable sacral bone island. IMPRESSION: Decrease in size of pelvic fluid collection following percutaneous drainage. Decrease in size of in trahepatic fluid collection with other stable loculated areas of fluid throughout the abdomen pelvis as described. Air and fluid in the lower anterior abdominal wall collection is similar to prior. Stable bilateral pleural effusions and bibasilar atelectasis.. RPTAT: HLBE Ela Rangel, Physician Date Time Electronically viewed and signed by Ela Rangel, Physician on 12/26/2016 06:17 LE/
[2016-12-26 07:05] LABS: ADD SCAN DIFF NO
[2016-12-26 07:09] LABS: BASOPHIL # 0.1 10^3/ul (0.0-0.1); BASOPHILS % 0.5 % (0.0-2.0); EOSINOPHILS # 0.2 10^3/ul (0.0-0.5); EOSINOPHILS % 1.5 % (0.0-7.0); HEMATOCRIT 31.7 % (37.0-47.0); HEMOGLOBIN 9.8 g/dl (12.0-16.0); LYMPHOCYTES # 1.3 10^3/ul (0.8-2.9); MEAN CORPUSCULAR HEMOGLOBIN 29.3 pg (29.0-33.0); MEAN CORPUSCULAR HGB CONC 30.9 g/dl (32.0-37.0); MEAN CORPUSCULAR VOLUME 94.6 fl (82.0-101.0); MEAN PLATELET VOLUME 10.2 fl (7.4-10.4); MONOCYTE # 0.9 10^3/ul (0.3-0.9); MONOCYTES % 8.5 % (0.0-11.0); NEUTROPHIL # 8.5 10^3/ul (1.6-7.5); RED BLOOD COUNT 3.35 10^6/ul (4.20-5.40); RED CELL DISTRIBUTION WIDTH 15.4 % (11.5-14.5)
[2016-12-26 07:20] LABS: ALBUMIN 2.9 g/dl (3.3-4.9)
[2016-12-26 07:21] LABS: POTASSIUM 3.8 mmol/L (3.5-5.1)
[2016-12-26 07:23] LABS: ALBUMIN/GLOBULIN RATIO 0.69; BILIRUBIN,INDIRECT 0.2 mg/dl (0-1.1); BILIRUBIN,TOTAL 0.2 mg/dl (0.2-1.3); CREATININE 1.3 mg/dl (0.44-1.00); TOTAL PROTEIN 7.1 g/dl (6.1-8.1)
[2016-12-26 07:24] LABS: CALCIUM 8.8 mg/dl (8.4-10.2)
[2016-12-26 07:29] LABS: PLATELET COUNT 670 10^3/UL (140-415)
[2016-12-26] MEDS: DOCUSATE SODIUM 100 MG CAP PO SCH ×2 (09:21→13:31)
[2016-12-26] MEDS: CIPROFLOXACIN 400MG/D5W 200 ML IVPB SCH (09:21)
[2016-12-26] MEDS: FAMOTIDINE 20 MG TAB PO SCH (09:21)
--- NOTE | 2016-12-26 10:30 | PN ---
Date/Time of Note Date/Time of Note DATE: 12/26/16 TIME: 09:57 Assessment/Plan VTE Prophylaxis VTE Prophylaxis Intervention: SCD's Lines/Catheters IV [facility]ter [facility]from [facility] Urinary Cath still in place: No Assessment/Plan Assessment/Plan 41-year-old female: 1. SIRS/sepsis, tachycardia, bandemia, leukocytosis, and a blood culture positive for bacteroides and coagulase-negative Staph, an pelvic abscess with E coli and bacteroides S/p total abdominal hysterectomy and lysis of adhesions almost 2 weeks ago. No further RUQ discomfort or abdominal pain. Afebrile, WBC down to 11K s/p IR drainage of pelvic fluid collection and s/p drain POD#4 with cx growing E coli and bacteroides Follow up CT abdo/pelvis with decrease sizes of fluid collections, discussed with Radiology findings and not amenable to to further drainage Tolerating po well Continue Cipro and Flagyl, will change to po and needs repeat CT abdo/pelvis with po contrast in 1 week with results sent to Dr Man for follow up fluid collections . 2. Acute kidney injury thought secondary to sepsis. Almost resolved. Renal US was within normal limits. Renal function improving, with creat stable at 1.39 3. Acute on chronic anemia, s/p 2 units pRBC. Hb stable, agree with supplemental Ferrous sulfate Prophylaxis: SCDs for DVT prophylaxis, Pepcid for GI prophylaxis Disposition: D/c plan home today on po abx if OK with ID, with follow up with PCP and Dr Man in [address] abdo/pelvis in 1 week. Subjective 24 Hr Interval Summary Free Text/Dictation Patient doing well Denies abdominal pain, tolerating po and ambulating, no SOB D/c plan today Exam/Review of Systems Vital Signs Vitals Vital Signs Date Time Temp Pulse Resp B/P Pulse Ox O2 Delivery O2 Flow Rate FiO2 12/26/16 08:34 77 12/26/16 07:51 98.5 18 124/63 93 Intake and Output 12/25/16 12/25/16 12/26/16 15:00 23:00 07:00 Intake Total 100 ml 300 ml 700 ml Balance 100 ml 300 ml 700 ml Exam Constitutional: alert, oriented, well developed Respiratory: clear to auscultation, normal air movement Cardiovascular: nl pulses, regular rate and rhythm Gastrointestinal: non-tender, soft Musculoskeletal: nl extremities to inspection Extremities: normal pulses, other (no edema, clubbing or cyanosis ) 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, nl mental status, nl speech, nl strength Results Result Diagram: 12/26/16 0635 12/26/16 0635 Results 24 hrs Laboratory Tests Test 12/26/16 06:35 White Blood Count 11.0 H Red Blood Count 3.35 L Hemoglobin 9.8 L Hematocrit 31.7 L Mean Corpuscular Volume 94.6 Mean Corpuscular Hemoglobin 29.3 Mean Corpuscular Hemoglobin Concent 30.9 L Red Cell Distribution Width 15.4 H Platelet Count 670 H Mean Platelet Volume 10.2 Neutrophils % 77.0 Lymphocytes % 12.0 L Monocytes % 8.5 Eosinophils % 1.5 Basophils % 0.5 Nucleated Red Blood Cells % 0.0 Neutrophils # 8.5 H Lymphocytes # 1.3 Monocytes # 0.9 Eosinophils # 0.2 Basophils # 0.1 Nucleated Red Blood Cells # 0.0 Sodium Level 138 Potassium Level 3.8 Chloride Level 103 Carbon Dioxide Level 25 Anion Gap 14 Blood Urea Nitrogen 11 Creatinine 1.30 H Glucose Level 107 Calcium Level 8.8 Total Bilirubin 0.2 Direct Bilirubin 0.00 Indirect Bilirubin 0.2 Aspartate Amino Transf (AST/SGOT) 30 Alanine Aminotransferase (ALT/SGPT) 44 Alkaline Phosphatase 199 H Total Protein 7.1 Albumin 2.9 L Globulin 4.20 H Albumin/Globulin Ratio 0.69 Medications Medications Current Medications Oxycodone/ Acetaminophen (Percocet (5/ 325)) 1 tab Q4H PRN PO PAIN Last administered on 12/26/16 09:21; Admin Dose 1 TAB; Start 12/14/16 at 23:30 Oxycodone/ Acetaminophen (Percocet (5/ 325)) 2 tab Q3H PRN PO SEVERE PAIN Last administered on 12/26/16 05:20; Admin Dose 2 TAB; Start 12/14/16 at 23:30 Acetaminophen (Tylenol Tab) 650 mg Q6H PRN PO PAIN AND OR ELEVATED TEMP Last administered on 12/17/16 12:53; Admin Dose 650 MG; Start 12/14/16 at 23:30 Zolpidem Tartrate (Ambien) 10 mg HS PRN PO INSOMNIA Last administered on 21:29; Admin Dose 10 MG; Start 12/14/16 at 23:30 Ondansetron HCl (Zofran Inj) 4 mg Q4H PRN IV NAUSEA AND/OR VOMITING; Start 12/14 at 23:30 Diagnostic Test (Pha) (Accu-Chek) 1 ea 02 XX Last administered on 12/25/16 01: 30; Admin Dose 1 EA; Start 12/16/16 at 02:00 Miscellaneous Information 1 ea NOTE XX ; Start 12/15/16 at 07:00 Glucose (Glutose) 15 gm Q15M PRN PO DECREASED GLUCOSE; Start 12/15/16 at 07:00 Glucose (Glutose) 22.5 gm Q15M PRN PO DECREASED GLUCOSE; Start 12/15/16 at 07:00 Dextrose (D50w Syringe) 25 ml Q15M PRN IV DECREASED GLUCOSE; Start 12/15/16 at 07:00 Dextrose (D50w Syringe) 50 ml Q15M PRN IV DECREASED GLUCOSE; Start 12/15/16 at 07:00 Glucagon (Glucagen) 1 mg Q15M PRN IM DECREASED GLUCOSE; Start 12/15/16 at 07:00 Glucose (Glutose) 15 gm Q15M PRN BUCCAL DECREASED GLUCOSE; Start 12/15/16 at 07: 00 Docusate Sodium (Colace) 100 mg TID PO Last administered on 12/26/16 09:21; Admin Dose 100 MG; Start 12/15/16 at 13:00 Famotidine (Pepcid) 20 mg DAILY PO Last administered on 12/26/16 09:21; Admin Dose 20 MG; Start 12/18/16 at 09:00 Magnesium Hydroxide 30 ml 30 ml DAILY PRN PO CONSTIPATION Last administered on 12/18/16 21:17; Admin Dose 30 ML; Start 12/18/16 at 19:30 Ciprofloxacin/ Dextrose 200 ml @ 200 mls/hr Q12 IVPB Last administered on 12/26 09:21; Admin Dose 200 MLS/HR; Start 12/25/16 at 21:00 Metronidazole (Flagyl 500 Mg (Pmx)) 100 ml @ 100 mls/hr Q8 IVPB Last administered on 12/26/16 05:12; Admin Dose 100 MLS/HR; Start 12/25/16 at 22:00 MEERA PERAZA Dec 26, 2016 10:26
--- NOTE | 2016-12-26 11:29 | PDOCDIS ---
Discharge Instructions CONDITION Patient Condition: Stable HOME CARE INSTRUCTIONS: Special Diet: regular ACTIVITY: Activity Restrictions: No Restrictions FOLLOW UP/APPOINTMENTS Appointments Follow up with PCP in within 1 week Follow up with Dr Man in week Please obtain CT abdomen/pelvis with oral contrast in 1 week on Friday 01/05 with results sent to MEERA Bennett Dec 26, 2016 11:28
[2016-12-26] MEDS ORDERED: LACT1CAP57 PO (11:31)
[2016-12-26] MEDS ORDERED: METR500T PO (11:31)
[2016-12-26] MEDS ORDERED: CIPR500T4 PO (11:31)
--- NOTE | 2016-12-26 15:49 | PN ---
DATE: 12/26/2016 SUBJECTIVE: The patient is alert, feels much better, ready to be discharged home. Looks comfortabl e, no fevers. Vital signs stable. ANTIMICROBIALS: She is on: 1. Cipro. 2. Flagyl. MICROBIOLOGY: Intra-abdominal abscess culture grew E. coli and Bacteroides fragilis. DIAGNOSTICS: Repeat CT of the abdomen and pelvis revealed decrease in size of pelvic fluid collecti on following percutaneous drainage. PHYSICAL EXAMINATION: GENERAL: Well-developed, middle-aged woman who is alert, in no distress. HEENT: Head atraumatic, normocephalic. Sclerae anicteric. Buccal mucosa pink. NECK: Supple. CHEST: Rise symmetrical. Breath sounds clear. HEART: S1, S2. ABDOMEN: Soft. Bowel sounds present. EXTREMITIES: Without cyanosis or edema. ASSESSMENT: 1. Status post systemic inflammatory response syndrome. 2. Status post intra-abdominal abscess drainage with catheter being removed yesterday. 3. Status post recent total abdominal hysterectomy. PLAN: The patient remains stable. Repeat CT abdomen revealed decreased fluid collection. The mirtha ent was cleared by surgeon for discharge. Recommend repeat CT abdomen in a week. We will send her home on current antimicrobials for 2 to 4 weeks. The patient to follow with surgery as an outpatien t for further recommendations. Above was discussed with Dr. Kaminski. Dictated By: JOSE TRUONG MORTGAGE COUNSELOR for [employer]DARSH[employer] Conf#: [id number] DID#: [id number]
== END 2016-12-26 16:10 | disposition home or self-care (01) | DRG 862 ==
LOC: E/R 16:09 → MS4 19:07
PROVIDERS: ADMIT Obstetrics & Gynecology; ATTEND Obstetrics & Gynecology
PROC: 30233N1 Transfusion of Nonautologous Red Blood Cells into Peripheral Vein, Percutaneous Approach (ICD-10-PCS; 2016-12-17)
PROC: 0W9J30Z Drainage of Pelvic Cavity with Drainage Device, Percutaneous Approach (ICD-10-PCS; principal; 2016-12-21)
PROC: 0WPJX0Z Removal of Drainage Device from Pelvic Cavity, External Approach (ICD-10-PCS; 2016-12-25)
DX: T81.4XXA Infection following a procedure, initial encounter (principal); K65.1 Peritoneal abscess; A41.1 Sepsis due to other specified staphylococcus; N17.9 Acute kidney failure, unspecified; R65.20 Severe sepsis without septic shock; B96.20 Unspecified Escherichia coli [E. coli] as the cause of diseases classified elsewhere; D64.89 Other specified anemias; E87.6 Hypokalemia; E66.9 Obesity, unspecified; Z68.36 Body mass index [BMI] 36.0-36.9, adult
CPT/HCPCS: 36430; 36589; 71010; 74176; 74177; 76705; 76775; 77012; 80048; 80053; 80170; 81001; 81003; 82150; 82962; 83036; 83605; 83690; 83735; 84100; 84484; 85025; 85610; 85730; 86850; 86870; 86900; 86901; 86920; 87040; 87070; 87075; 87086; 93005; 96374; 96375; 96376; J0744; J1170; J1200; J1580; J1815; J2270; J2405; J2543; J3370; J3475; J7030; J7040; J7050; J7120; P9016; Q9967